=== PATIENT | male | born 1935 | race African-American/Black ===

== ENCOUNTER → 2016-06-29 | Outpatient (CLI) | payer MEDICARE, MEDICAID ==
[2016-06-29 13:16] LABS: ABSOLUTE EOSINOPHILS # (AUTO) 0.1 10^3/uL (0.0-0.6); ABSOLUTE LYMPHOCYTES (AUTO) 1.3 10^3/uL (0.5-4.7); ABSOLUTE MONOCYTES (AUTO) 0.6 10^3/uL (0.1-1.4); ABSOLUTE NEUT (AUTO) 4.5 10^3/uL (1.7-8.2); BASOPHILS % (AUTO) 0.6 % (0-2); EOSINOPHILS % (AUTO) 2.2 % (0-6); HEMATOCRIT 45.9 % (37.9-51.0); HEMOGLOBIN 14.7 g/dL (13.5-17.0); HGB HCT DIFFERENCE -1.8; LYMPHOCYTES % (AUTO) 19.7 % (13-45); MEAN CORPUSCULAR HEMOGLOBIN 32.1 pg (27.0-33.4); MEAN CORPUSCULAR HGB CONC 32.1 g/dL (32.0-36.0); MEAN CORPUSCULAR VOLUME 100 fl (80-97); MONOCYTES % (AUTO) 8.6 % (3-13); RED BLOOD COUNT 4.59 10^6/uL (4.35-5.55); RED CELL DISTRIBUTION WIDTH 13.7 % (11.5-14.0); SEGMENTED NEUTROPHILS % (AUTO) 68.9 % (42-78); WHITE BLOOD COUNT 6.5 10^3/uL (4.0-10.5)
[2016-06-29 13:36] LABS: ALANINE AMINOTRANSFERASE 36 U/L (21-72); ALBUMIN 4.4 g/dL (3.5-5.0); ALKALINE PHOSPHATASE 74 U/L (38-126); ANION GAP 13 (5-19); ASPARTATE AMINO TRANSFERASE 37 U/L (17-59); BILIRUBIN,TOTAL 1.4 mg/dL (0.2-1.3); BLOOD UREA NITROGEN 11 mg/dL (7-20); C-REACTIVE PROTEIN 5.6 mg/L (<10.0); CALCIUM 9.6 mg/dL (8.4-10.2); CARBON DIOXIDE 28 mmol/L (22-30); CHLORIDE 101 mmol/L (98-107); GLUCOSE 95 mg/dL (75-110); POTASSIUM 4.5 mmol/L (3.6-5.0); SODIUM 141.6 mmol/L (137-145); TOTAL PROTEIN 7.7 g/dL (6.3-8.2)
[2016-06-29 13:56] LABS: ERYTHROCYTE SEDIMENTATION RATE 12 mm/hr (0-20)
== END ==
LOC: WC 11:55
PROVIDERS: ATTEND Nurse Practitioner Family
DX: L97.222 Non-pressure chronic ulcer of left calf with fat layer exposed (principal)
CPT/HCPCS: 36415; 80053; 85025; 85652; 86140

== ENCOUNTER 2016-07-13 09:06 | Inpatient (IN) | payer MEDICARE, MEDICAID ==
[2016-07-13 09:56] LABS: ABSOLUTE EOSINOPHILS # (AUTO) 0.2 10^3/uL (0.0-0.6); ABSOLUTE LYMPHOCYTES (AUTO) 1.2 10^3/uL (0.5-4.7); ABSOLUTE MONOCYTES (AUTO) 0.4 10^3/uL (0.1-1.4); ABSOLUTE NEUT (AUTO) 4.2 10^3/uL (1.7-8.2); BASOPHILS % (AUTO) 0.6 % (0-2); EOSINOPHILS % (AUTO) 3.1 % (0-6); HEMATOCRIT 48.7 % (37.9-51.0); HEMOGLOBIN 16.4 g/dL (13.5-17.0); HGB HCT DIFFERENCE 0.5; LYMPHOCYTES % (AUTO) 19.5 % (13-45); MEAN CORPUSCULAR HEMOGLOBIN 33.1 pg (27.0-33.4); MEAN CORPUSCULAR HGB CONC 33.6 g/dL (32.0-36.0); MEAN CORPUSCULAR VOLUME 98 fl (80-97); MONOCYTES % (AUTO) 6.9 % (3-13); RED BLOOD COUNT 4.94 10^6/uL (4.35-5.55); RED CELL DISTRIBUTION WIDTH 13.7 % (11.5-14.0); SEGMENTED NEUTROPHILS % (AUTO) 69.9 % (42-78)
[2016-07-13 10:13] LABS: PROTHROMBIN TIME 13.9 SEC (11.4-15.4)
[2016-07-13 10:14] LABS: ANION GAP 14 (5-19); BLOOD UREA NITROGEN 13 mg/dL (7-20); CALCIUM 9.9 mg/dL (8.4-10.2); CARBON DIOXIDE 27 mmol/L (22-30); CHLORIDE 102 mmol/L (98-107); CREATININE RESULT 1.26 mg/dL (0.52-1.25); GLUCOSE 101 mg/dL (75-110); POTASSIUM 4.2 mmol/L (3.6-5.0); SODIUM 142.9 mmol/L (137-145)
[2016-07-13] MEDS ORDERED: HEPARIN SOD (PORCINE) 1,000 UNIT/ML 10 ML VIAL IV ONE (10:44)
[2016-07-13] MEDS ORDERED: HEPARIN SOD (PORCINE) 1,000 UNIT/ML 10 ML VIAL IV PRN (10:44)
--- NOTE | 2016-07-13 10:45 | ER Document Report ---
ED General - General Chief Complaint: Leg Pain Stated Complaint: RIGHT LEG PAIN TRAVEL OUTSIDE OF THE [place] IN LAST 30 DAYS: No - HPI Patient complains to provider of: right leg pain Notes: Patient coming in as outpatient for arterial studies due to an ulcer on the left leg. During the arterial studies redness no finding of a right-sided DVT was found patient was referred to the ER for further evaluation. Patient otherwise denies history of cancer PE DVT recent travel. Patient states he does have a history of intermittent atrial fibrillation is only on Plavix for anticoagulation. Denies history GI bleeds or bleeding from his rectum. Patient otherwise has no other complaints and is wondering when he can go back to the outpatient services for further testing - Related Data Allergies/Adverse Reactions: No Known Allergies Allergy (Verified 07/13/16 09:09) Home Medications: Current Home Medications Valsartan [Diovan 160 mg Tablet] 160 mg PO DAILY 07/13/16 [History] Past Medical History - Social History Smoking Status: Unknown if Ever Smoked Family History: None Patient has suicidal ideation: No Patient has homicidal ideation: No - Past Medical History Cardiac Medical History: Reports: Hx Hypertension - since 2004? Denies: Hx Atrial Fibrillation, Hx Congestive Heart Failure, Hx Coronary Artery Disease, Hx Heart Attack, Hx Hypercholesterolemia, Hx Peripheral Vascular Disease, Hx Pulmonary Embolism, Hx Heart Murmur Pulmonary Medical History: Reports: Hx Pneumonia - 2010 Denies: Hx Asthma, Hx Bronchitis, Hx COPD, Hx Respiratory Failure, Hx Sleep Apnea, Hx Tuberculosis Neurological Medical History: Denies: Hx Cerebrovascular Accident, Hx Seizures Renal/ Medical History: Denies: Hx Peritoneal Dialysis Malignancy Medical History: Denies Hx Lung Cancer Musculoskeltal Medical History: Reports Hx Arthritis - arms,rt ankle,hands Past Surgical History: Denies: Hx Pacemaker - Immunizations Hx Diphtheria, Pertussis, Tetanus Vaccination: No Hx Pneumococcal Vaccination: 06/13/10 Review of Systems - Review of Systems Constitutional: Other - DVT right leg EENT: No symptoms reported Cardiovascular: No symptoms reported Respiratory: No symptoms reported Gastrointestinal: No symptoms reported Genitourinary: No symptoms reported Male Genitourinary: No symptoms reported Musculoskeletal: No symptoms reported Skin: No symptoms reported Hematologic/Lymphatic: No symptoms reported Neurological/Psychological: No symptoms reported Physical Exam - Vital signs Vitals: Temp Pulse Resp BP Pulse Ox 98.8 F 97 14 119/78 100 07/13/16 09:09 07/13/16 09:09 07/13/16 09:09 07/13/16 09:09 07/13/16 09:09 Interpretation: Normal - General General appearance: Appears well, Alert - HEENT Head: Normocephalic, Atraumatic Eyes: Normal Pupils: PERRL - Respiratory Respiratory status: No respiratory distress Chest status: Nontender Breath sounds: Normal Chest palpation: Normal - Cardiovascular Rhythm: Regular Heart sounds: Normal auscultation Murmur: No - Abdominal Inspection: Normal Distension: No distension Bowel sounds: Normal Tenderness: Nontender Organomegaly: No organomegaly - Back Back: Normal, Nontender - Extremities General upper extremity: Normal inspection, Nontender, Normal color, Normal ROM , Normal temperature General lower extremity: Nontender, Normal color, Normal ROM, Normal temperature , Normal weight bearing. No: Normal inspection - Ulcer to the left leg no signs of blushing the signs of infection, David's sign - Neurological Neuro grossly intact: Yes Cognition: Normal Orientation: AAOx4 Juani Coma Scale Eye Opening: Spontaneous [place] Coma Scale Verbal: Oriented [place] Coma Scale Motor: Obeys Commands Hollywood Coma Scale Total: 15 Speech: Normal Motor strength normal: LUE, RUE, LLE, RLE Sensory: Normal - Psychological Associated symptoms: Normal affect, Normal mood - Skin Skin Temperature: Warm Skin Moisture: Dry Skin Color: Normal Course - Re-evaluation Re-evalutation: 07/13/16 14:55 Patient's lab work shows minimal elevation in his creatinine. Patient does have elevation in his PTT. More likely this is from Plavix. I did discuss with patient's PCP PCP recommend admission as a the patient is very noncompliant with medications and is concerned about possible bleeding risk. Patient was started on heparin for treatment of his DVT. - Vital Signs Vital signs: Temp Pulse Resp BP Pulse Ox 98.8 F 97 14 119/78 100 07/13/16 09:09 07/13/16 09:09 07/13/16 09:09 07/13/16 09:09 07/13/16 09:09 - Laboratory Result Diagrams: 07/13/16 09:35 07/13/16 09:35 Laboratory results interpreted by me: 07/13/16 07/13/16 07/13/16 09:35 09:35 09:35 MCV 98 H Plt Count 144 L APTT 39.0 H Creatinine 1.26 H Est GFR (Non-Af Amer) 55 L Critical Care Note - Critical Care Note Total time excluding time spent on procedures (mins): 35 Comments: Multiple evaluation patient with DVT managing heparin drip. Discharge - Discharge Clinical Impression: Elevated serum creatinine Right leg DVT Qualifiers: Affected thrombotic vein of extremity: popliteal Chronicity: unspecified Qualified Code(s): I82.431 - Acute embolism and thrombosis of right popliteal vein Leg ulcer, left Qualifiers: Non-pressure ulcer stage: unspecified non-pressure ulcer stage Qualified Code(s ): L97.929 - Non-pressure chronic ulcer of unspecified part of left lower leg with unspecified severity Condition: Good Disposition: ADMITTED OBSERVATION Admitting Provider: Kerry Unit Admitted: Telemetry
[2016-07-13] MEDS: HEPARIN SODIUM,PORCINE/D5W 250 ML IV PRN (11:36)
[2016-07-13] MEDS ORDERED: VALSARTAN 160 MG TABLET PO ONE (14:00)
--- NOTE | 2016-07-13 20:13 | PDOC H&P ---
History of Present Illness Admission Date/PCP: 07/13/16 13:09 MARCIAL CUBA, History of Present Illness: FABIENNE HURLEY is a 80 year old male, patient is well-known to me, he has history of chronic obstructive pulmonary disease, he has a non-healing ulcer on the right leg and he was to have diagnostic arterial Doppler done because of the suspicion for peripheral vascular disease. The arterial Doppler was done today and there was incidental finding of the vein thromboses in the right popliteal vein, and there was peripheral arterial disease in the left leg but not in the right leg. He has a history of atrial flutter that was ablated years ago, he was found to have episode of atrial fibrillation suggesting paroxysmal atrial fibrillation Past Medical History Cardiac Medical History: Reports: Hypertension - since 2004?, Peripheral Vascular Disease Pulmonary Medical History: Reports: Chronic Obstructive Pulmonary Disease (COPD) , Pneumonia - 2010 Musculoskeltal Medical History: Reports: Arthritis - arms,rt ankle,hands Social History Smoking Status: Never Smoker Frequency of Alcohol Use: None Hx Recreational Drug Use: No Drugs: None Hx Prescription Drug Abuse: No - Advance Directive Resuscitation Status: Full Code Family History Family History: None Parental Family History Reviewed: Yes Children Family History Reviewed: Yes Sibling(s) Family History Reviewed.: Yes Medication/Allergy Home Medications: Valsartan [Diovan 160 mg Tablet] 160 mg PO DAILY 07/13/16 Allergies/Adverse Reactions: No Known Allergies Allergy (Verified 07/13/16 09:09) Review of Systems Constitutional: ABSENT: chills, fever(s), headache(s), weight gain, weight loss Cardiovascular: ABSENT: as per HPI, chest pain, dyspnea on exertion, edema, orthropnea, palpitations, other Respiratory: ABSENT: cough, hemoptysis Gastrointestinal: ABSENT: abdominal pain, constipation, diarrhea, hematemesis, hematochezia, nausea, vomiting Genitourinary: ABSENT: dysuria, hematuria Musculoskeletal: ABSENT: joint swelling Integumentary: ABSENT: rash, wounds Neurological: ABSENT: abnormal gait, abnormal speech, confusion, dizziness, focal weakness, syncope Psychiatric: ABSENT: anxiety, depression, homidical ideation, suicidal ideation Endocrine: ABSENT: cold intolerance, heat intolerance, menstrual abnormalities, polydipsia, polyuria Hematologic/Lymphatic: ABSENT: easy bleeding, easy bruising, lymphadenopathy Physical Exam Vital Signs: Temp Pulse Resp BP Pulse Ox 97.8 F 85 16 120/72 100 07/13/16 16:43 07/13/16 16:43 07/13/16 16:43 07/13/16 16:43 07/13/16 16:43 Intake & Output 07/12/16 07/13/16 07/14/16 06:59 06:59 06:59 Intake Total 108 Balance 108 Weight 90.718 kg General appearance: PRESENT: no acute distress Eye exam: PRESENT: PERRLA Neck exam: PRESENT: full ROM Cardiovascular exam: PRESENT: RRR, +S1, +S2 Vascular exam: PRESENT: normal capillary refill GI/Abdominal exam: PRESENT: normal bowel sounds, soft Rectal exam: PRESENT: deferred Extremities exam: PRESENT: other - There is chronic ulcer on the left leg Neurological exam: PRESENT: alert, CN II-XII grossly intact Psychiatric exam: PRESENT: appropriate affect, normal mood Skin exam: PRESENT: dry, intact, warm Assessment & Plan - Diagnosis (1) Deep venous thrombosis of right popliteal vein Qualifiers: Chronicity: acute Qualified Code(s): I82.431 - Acute embolism and thrombosis of right popliteal vein Is this a current diagnosis for this admission?: YesPlan: He has the vein thromboses of the right popliteal vein, he be started on IV heparin (2) Paroxysmal atrial fibrillation Is this a current diagnosis for this admission?: YesPlan: The ventricular rate is variable, he will be treated with by mouth Cardizem (3) Chronic obstructive lung disease Qualifiers: COPD type: chronic bronchitis Chronic bronchitis type: unspecified Qualified Code(s): J42 - Unspecified chronic bronchitis Is this a current diagnosis for this admission?: Yes (4) Chronic ulcer of leg Qualifiers: Laterality: left Non-pressure ulcer stage: unspecified non-pressure ulcer stage Qualified Code(s): L97.929 - Non-pressure chronic ulcer of unspecified part of left lower leg with unspecified severity Is this a current diagnosis for this admission?: Yes
[2016-07-13] MEDS: DILTIAZEM HCL 120 MG CAP.SR.24H PO SCH (21:54)
[2016-07-14 04:44] LABS: ABSOLUTE BASOPHILS # (AUTO) 0.1 10^3/uL (0.0-0.2); ABSOLUTE EOSINOPHILS # (AUTO) 0.4 10^3/uL (0.0-0.6); ABSOLUTE LYMPHOCYTES (AUTO) 1.7 10^3/uL (0.5-4.7); ABSOLUTE MONOCYTES (AUTO) 0.4 10^3/uL (0.1-1.4); ABSOLUTE NEUT (AUTO) 3.2 10^3/uL (1.7-8.2); BASOPHILS % (AUTO) 1.5 % (0-2); EOSINOPHILS % (AUTO) 6.2 % (0-6); HEMATOCRIT 45.3 % (37.9-51.0); HGB HCT DIFFERENCE -0.3; LYMPHOCYTES % (AUTO) 30.6 % (13-45); MEAN CORPUSCULAR HEMOGLOBIN 32.7 pg (27.0-33.4); MEAN CORPUSCULAR VOLUME 99 fl (80-97); MONOCYTES % (AUTO) 6.2 % (3-13); RED BLOOD COUNT 4.58 10^6/uL (4.35-5.55); RED CELL DISTRIBUTION WIDTH 13.6 % (11.5-14.0); SEGMENTED NEUTROPHILS % (AUTO) 55.5 % (42-78); WHITE BLOOD COUNT 5.7 10^3/uL (4.0-10.5)
[2016-07-14 05:15] LABS: ANION GAP 12 (5-19); BLOOD UREA NITROGEN 12 mg/dL (7-20); CALCIUM 9.5 mg/dL (8.4-10.2); CARBON DIOXIDE 28 mmol/L (22-30); CHLORIDE 101 mmol/L (98-107); CREATININE RESULT 1.33 mg/dL (0.52-1.25); GLUCOSE 100 mg/dL (75-110); POTASSIUM 4.3 mmol/L (3.6-5.0); SODIUM 141.4 mmol/L (137-145)
[2016-07-14] MEDS: HEPARIN SODIUM,PORCINE/D5W 250 ML IV PRN (07:34)
--- NOTE | 2016-07-14 09:23 | EKG REPORT ---
SEVERITY:- ABNORMAL ECG - ATRIAL FIBRILLATION BORDERLINE LEFT AXIS DEVIATION : Confirmed by: Clement Chang 14-Jul-2016 09:22:50
[2016-07-14 09:27] LABS: APPEARANCE,URINE CLEAR; BILIRUBIN,URINE NEGATIVE (NEGATIVE); GLUCOSE, URINE NEGATIVE (NEGATIVE); KETONES,URINE NEGATIVE (NEGATIVE); LEUKOCYTE ESTERASE,URINE NEGATIVE (NEGATIVE); NITRITE,URINE NEGATIVE (NEGATIVE); PROTEIN,URINE NEGATIVE (NEGATIVE); UROBILINOGEN,URINE NEGATIVE mg/dL (<2.0)
[2016-07-14] MEDS: VALSARTAN 160 MG TABLET PO SCH (09:35)
[2016-07-14] MEDS: DILTIAZEM HCL 120 MG CAP.SR.24H PO SCH (22:09)
[2016-07-15 07:16] LABS: ABSOLUTE EOSINOPHILS # (AUTO) 0.4 10^3/uL (0.0-0.6); ABSOLUTE LYMPHOCYTES (AUTO) 1.5 10^3/uL (0.5-4.7); ABSOLUTE MONOCYTES (AUTO) 0.4 10^3/uL (0.1-1.4); ABSOLUTE NEUT (AUTO) 3.1 10^3/uL (1.7-8.2); BASOPHILS % (AUTO) 0.7 % (0-2); EOSINOPHILS % (AUTO) 6.7 % (0-6); HEMATOCRIT 43.4 % (37.9-51.0); HEMOGLOBIN 14.6 g/dL (13.5-17.0); HGB HCT DIFFERENCE 0.4; LYMPHOCYTES % (AUTO) 27.6 % (13-45); MEAN CORPUSCULAR HGB CONC 33.6 g/dL (32.0-36.0); MEAN CORPUSCULAR VOLUME 98 fl (80-97); MONOCYTES % (AUTO) 7.5 % (3-13); RED BLOOD COUNT 4.42 10^6/uL (4.35-5.55); RED CELL DISTRIBUTION WIDTH 13.4 % (11.5-14.0); SEGMENTED NEUTROPHILS % (AUTO) 57.5 % (42-78); WHITE BLOOD COUNT 5.4 10^3/uL (4.0-10.5)
[2016-07-15 07:37] LABS: ANION GAP 8 (5-19); BLOOD UREA NITROGEN 12 mg/dL (7-20); CALCIUM 9.6 mg/dL (8.4-10.2); CARBON DIOXIDE 30 mmol/L (22-30); CHLORIDE 102 mmol/L (98-107); CREATININE RESULT 1.21 mg/dL (0.52-1.25); GLUCOSE 96 mg/dL (75-110); POTASSIUM 4.2 mmol/L (3.6-5.0); SODIUM 139.9 mmol/L (137-145)
[2016-07-15] MEDS: VALSARTAN 160 MG TABLET PO SCH (12:34)
--- NOTE | 2016-07-15 18:27 | PDOC PROGRESS REPORT ---
Subjective Progress Note for:: 07/14/16 Subjective:: Patient was seen by the bedside, he has no new complaints. Physical Exam Vital Signs: Temp Pulse Resp BP Pulse Ox 97.7 F 87 17 129/91 H 92 07/14/16 15:45 07/14/16 15:45 07/14/16 15:45 07/14/16 15:45 07/14/16 15:45 Intake & Output 07/13/16 07/14/16 07/15/16 06:59 06:59 06:59 Intake Total 997 800 Output Total 950 Balance 997 -150 Weight 91 kg General appearance: PRESENT: no acute distress Eye exam: PRESENT: PERRLA Respiratory exam: PRESENT: clear to auscultation poonam Cardiovascular exam: PRESENT: +S1, +S2 GI/Abdominal exam: PRESENT: soft Neurological exam: PRESENT: alert Results Laboratory Results: 07/14/16 04:17 07/14/16 04:17 07/14/16 07/14/16 07/14/16 04:17 04:17 09:07 WBC 5.7 RBC 4.58 Hgb 15.0 Hct 45.3 MCV 99 H MCH 32.7 MCHC 33.0 RDW 13.6 Plt Count 134 L Seg Neutrophils % 55.5 Lymphocytes % 30.6 Monocytes % 6.2 Eosinophils % 6.2 H Basophils % 1.5 Absolute Neutrophils 3.2 Absolute Lymphocytes 1.7 Absolute Monocytes 0.4 Absolute Eosinophils 0.4 Absolute Basophils 0.1 Sodium 141.4 Potassium 4.3 Chloride 101 Carbon Dioxide 28 Anion Gap 12 BUN 12 Creatinine 1.33 H Est GFR ( Amer) > 60 Est GFR (Non-Af Amer) 52 L Glucose 100 Calcium 9.5 Urine Color YELLOW Urine Appearance CLEAR Urine pH 6.0 Ur Specific [place] 1.010 Urine Protein NEGATIVE Urine Glucose (UA) NEGATIVE Urine Ketones NEGATIVE Urine Blood NEGATIVE Urine Nitrite NEGATIVE Ur Leukocyte Esterase NEGATIVE Urine RBC (Auto) 0 Assessment & Plan - Diagnosis (1) Deep venous thrombosis of right popliteal vein Qualifiers: Chronicity: acute Qualified Code(s): I82.431 - Acute embolism and thrombosis of right popliteal vein Is this a current diagnosis for this admission?: YesPlan: Continue IV heparin (2) Paroxysmal atrial fibrillation Is this a current diagnosis for this admission?: Yes (3) Chronic obstructive lung disease Qualifiers: COPD type: chronic bronchitis Chronic bronchitis type: unspecified Qualified Code(s): J42 - Unspecified chronic bronchitis Is this a current diagnosis for this admission?: Yes (4) Chronic ulcer of leg Qualifiers: Laterality: left Non-pressure ulcer stage: unspecified non-pressure ulcer stage Qualified Code(s): L97.929 - Non-pressure chronic ulcer of unspecified part of left lower leg with unspecified severity Is this a current diagnosis for this admission?: Yes
[2016-07-15 19:47] VITALS: BP 112/70
--- NOTE | 2016-07-16 19:38 | PDOC DISCHARGE SUMMARY ---
General - Admit/Disc Date/PCP Admission Date/Primary Care Provider: 07/13/16 13:09 MARCIAL CUBA, Discharge Date: 07/15/16 - Discharge Diagnosis (1) Deep venous thrombosis of right popliteal vein Is this a current diagnosis for this admission?: Yes (2) Paroxysmal atrial fibrillation Is this a current diagnosis for this admission?: Yes (3) Chronic obstructive lung disease Is this a current diagnosis for this admission?: Yes (4) Chronic ulcer of leg Is this a current diagnosis for this admission?: Yes - Additional Information Resuscitation Status: Full Code Home Medications: Apixaban [Eliquis 5 mg Tablet] 5 mg PO BID #60 tablet 07/15/16 Diltiazem HCl [Cardizem Cd 120 mg Capsule] 120 mg PO QHS #90 cap.sr.24h Valsartan [Diovan 160 mg Tablet] 160 mg PO DAILY #90 07/15/16 History of Present Illness History of Present Illness: FABIENNE HURLEY is a 80 year old male, patient is well-known to me, he has history of chronic obstructive pulmonary disease, he has a non-healing ulcer on the right leg and he was to have diagnostic arterial Doppler done because of the suspicion for peripheral vascular disease. The arterial Doppler was done today and there was incidental finding of the vein thromboses in the right popliteal vein, and there was peripheral arterial disease in the left leg but not in the right leg. He has a history of atrial flutter that was ablated years ago, he was found to have episode of atrial fibrillation suggesting paroxysmal atrial fibrillation Hospital Course Hospital Course: Patient was admitted because of the vein thromboses of the right popliteal vein , he was treated with IV heparin, he also had episode of paroxysmal atrial fibrillation with variable ventricular rate. He was treated with by mouth Cardizem. Patient said he wants to go home today, the IV therapy. Discontinue and transition to by mouth eliquis Physical Exam Vital Signs: Temp Pulse Resp BP Pulse Ox 98.0 F 99 16 103/66 100 07/15/16 15:11 07/15/16 15:11 07/15/16 15:11 07/15/16 15:11 07/15/16 15:11 Intake & Output 07/14/16 07/15/16 07/16/16 06:59 06:59 06:59 Intake Total 997 1805 600 Output Total 1600 Balance 997 205 600 Weight 91 kg 91 kg General appearance: PRESENT: no acute distress Eye exam: PRESENT: PERRLA Respiratory exam: PRESENT: clear to auscultation poonam Cardiovascular exam: PRESENT: +S1, +S2 GI/Abdominal exam: PRESENT: soft Neurological exam: PRESENT: alert, CN II-XII grossly intact Results Laboratory Results: 07/15/16 06:28 07/15/16 06:28 07/14/16 07/15/16 07/15/16 21:19 06:28 06:28 WBC 5.4 RBC 4.42 Hgb 14.6 Hct 43.4 MCV 98 H MCH 33.0 MCHC 33.6 RDW 13.4 Plt Count 136 L Seg Neutrophils % 57.5 Lymphocytes % 27.6 Monocytes % 7.5 Eosinophils % 6.7 H Basophils % 0.7 Absolute Neutrophils 3.1 Absolute Lymphocytes 1.5 Absolute Monocytes 0.4 Absolute Eosinophils 0.4 Absolute Basophils 0.0 Sodium 139.9 Potassium 4.2 Chloride 102 Carbon Dioxide 30 Anion Gap 8 BUN 12 Creatinine 1.21 Est GFR ( Amer) > 60 Est GFR (Non-Af Amer) 58 L Glucose 96 Calcium 9.6 Stool Occult Blood NEGATIVE
== END 2016-07-15 20:10 | disposition home or self-care (01) | DRG 300 ==
LOC: ER 09:06 → EH 11:15 → UNDOADMIN 11:15 → EH 13:09 → 4W 15:51 → 4S 07-14 16:50
PROVIDERS: ADMIT Internal Medicine; ATTEND Internal Medicine
DX: I82.431 Acute embolism and thrombosis of right popliteal vein (principal); L97.929 Non-pressure chronic ulcer of unspecified part of left lower leg with unspecified severity; I48.0 Paroxysmal atrial fibrillation; J44.9 Chronic obstructive pulmonary disease, unspecified; I10 Essential (primary) hypertension; M19.90 Unspecified osteoarthritis, unspecified site
CPT/HCPCS: 36415; 80048; 81001; 82272; 85025; 85610; 85730; 93005; 93010; 93925; 96365; 96366; 99291; J1644

== ENCOUNTER → 2016-07-13 | Outpatient (CLI) | payer MEDICARE, MEDICAID ==
--- NOTE | 2016-07-13 10:27 | XCELERA REPORT ---
[address] [address] Lower Extremity Arterial Evaluation Name: FABIENNE HURLEY Age: 80 yrs Gender: Male : 1935 Patient Status: Outpatient Patient Location: Study Date: 07/13/2016 08:01 AM Procedure: A color flow and duplex scan of the lower extremity arteries was performed bilaterally with velocity and waveform anaylsis. Reason For Study: ULCER Ordering Physician: DEBBIE LANZA Performed By: Shahla Thomas Measurements and Calculations Right Left [employer] PSV 44.9 58.9 cm/sec Prox PFA PSV -41.5 -63.3 cm/sec Prox SFA PSV 48.8 58.0 cm/sec Mid SFA PSV -42.1 -44.9 cm/sec Dist SFA PSV -33.0 -47.7 cm/sec Prox Pop A PSV 34.2 32.4 cm/sec Dist JAX PSV 71.6 90.8 cm/sec Dist [employer] PSV 55.6 59.7 cm/sec Leonel Pedis PSV 53.8 48.3 cm/sec Right Side Arterial Evaluation Abnormal filling, no flow and echogenic luminal content in the Popliteal vein. Normal velocity, waveform and triphasic flow are present, from the Common Femoral artery down to the infrageniculate vessels. Biphasic in the Deep femoral artery.. The ankle-brachial index was not done, due to finding veinous clot.. 0-19 % stenosis is noted at the Deep Femoral artery. Left Side Arterial Evaluation Normal velocity, waveform and triphasic flow are present, from the Common Femoral artery to the Popliteal. Evaluation of the infrageniculate vessels incomplete, due to bandaging, Biphasic distally.. The ankle-brachial index was not done. 0-19 % stenosis is noted at the infrageniculate vessels. Critical Findings Discussed with Dr Peace at about 0930, the patient will go to the ER for treatment, planning. Interpretation Summary No hemodynamically significant lesions in the right lower extremity only, on duplex imaging, at rest. Mild hemodynamically significant lesions in the left lower extremity only, on duplex imaging, at rest. Critical incidental finding of DVT in the right Popliteal vein. : DEBBIE LANZA > Froylan Good
== END ==
LOC: SP 07:56
PROVIDERS: ATTEND Nurse Practitioner Family
DX: L97.222 Non-pressure chronic ulcer of left calf with fat layer exposed (principal); I87.2 Venous insufficiency (chronic) (peripheral)
CPT/HCPCS: 93925

== ENCOUNTER → 2017-04-05 | Outpatient (CLI) | payer MEDICARE, MEDICAID ==
[2017-04-05 14:41] LABS: ABSOLUTE EOSINOPHILS # (AUTO) 0.3 10^3/uL (0.0-0.6); ABSOLUTE LYMPHOCYTES (AUTO) 1.2 10^3/uL (0.5-4.7); ABSOLUTE MONOCYTES (AUTO) 0.6 10^3/uL (0.1-1.4); ABSOLUTE NEUT (AUTO) 3.8 10^3/uL (1.7-8.2); BASOPHILS % (AUTO) 0.8 % (0-2); EOSINOPHILS % (AUTO) 4.6 % (0-6); HEMOGLOBIN 14.2 g/dL (13.5-17.0); HGB HCT DIFFERENCE 0.6; LYMPHOCYTES % (AUTO) 20.7 % (13-45); MEAN CORPUSCULAR HEMOGLOBIN 32.5 pg (27.0-33.4); MEAN CORPUSCULAR HGB CONC 33.7 g/dL (32.0-36.0); MEAN CORPUSCULAR VOLUME 97 fl (80-97); MONOCYTES % (AUTO) 9.4 % (3-13); RED BLOOD COUNT 4.36 10^6/uL (4.35-5.55); RED CELL DISTRIBUTION WIDTH 14.7 % (11.5-14.0); SEGMENTED NEUTROPHILS % (AUTO) 64.5 % (42-78); WHITE BLOOD COUNT 5.8 10^3/uL (4.0-10.5)
[2017-04-05 15:09] LABS: ALANINE AMINOTRANSFERASE 35 U/L (21-72); ALBUMIN 4.5 g/dL (3.5-5.0); ALKALINE PHOSPHATASE 84 U/L (38-126); ANION GAP 12 (5-19); ASPARTATE AMINO TRANSFERASE 26 U/L (17-59); BILIRUBIN,DIRECT 0.4 mg/dL (0.0-0.4); BILIRUBIN,TOTAL 0.9 mg/dL (0.2-1.3); BLOOD UREA NITROGEN 15 mg/dL (7-20); C-REACTIVE PROTEIN 9.3 mg/L (<10.0); CARBON DIOXIDE 30 mmol/L (22-30); CHLORIDE 98 mmol/L (98-107); CREATININE RESULT 1.36 mg/dL (0.52-1.25); GLUCOSE 107 mg/dL (75-110); POTASSIUM 4.7 mmol/L (3.6-5.0); SODIUM 139.9 mmol/L (137-145); TOTAL PROTEIN 8.1 g/dL (6.3-8.2)
[2017-04-05 15:24] LABS: ERYTHROCYTE SEDIMENTATION RATE 23 mm/hr (0-20)
--- NOTE | 2017-04-05 16:13 | RADIOLOGY REPORT (SQ) ---
EXAM DESCRIPTION: TIBIA FIBULA LEFT COMPLETED DATE/TIME: 04/05/2017 2:16 pm REASON FOR STUDY: NON-PRESSURE CHRONIC ULCER OF LEFT CALF W FAT LAYER EXPOSED L97.222 NON-PRESSURE CHRONIC ULCER OF LEFT CALF W FAT LAYER COMPARISON: Left tibia and fibula two views 06/29/2016, 05/25/2011 NUMBER OF VIEWS: Two views. TECHNIQUE: Two radiographic images acquired of the left tibia and fibula to include the knee and ank le in at least one projection. LIMITATIONS: None. FINDINGS: Overall normal bone density. An old left distal tibial diaphysis fracture is present with surrounding bony bridging callus. An no nunited butterfly fracture left distal 3rd fibular diaphysis present. There are thrombosed calcified varicosities in the medial left calf. About 10 cm proximal to the ankle mortise, there is a medial soft tissue ulcer about 1.5 cm in diamet er. There is no underlying aggressive bony resorption or periosteal new bone worrisome for active os teomyelitis on the current films. IMPRESSION: Soft tissue ulcer, medial distal left calf without underlying bony changes by plain film to suggest osteomyelitis. TECHNICAL DOCUMENTATION: JOB ID: [id number]- All Rights Reserved
== END ==
LOC: WC 13:33
PROVIDERS: ATTEND Surgery
DX: L97.222 Non-pressure chronic ulcer of left calf with fat layer exposed (principal)
CPT/HCPCS: 36415; 80053; 85025; 85652; 86140

== ENCOUNTER 2017-06-18 11:12 | Inpatient (IN) | payer MEDICARE, MEDICAID ==
--- NOTE | 2017-06-18 11:43 | EKG REPORT ---
SEVERITY:- ABNORMAL ECG - ATRIAL FIBRILLATION, V-RATE 76-165 VENTRICULAR PREMATURE COMPLEX LEFT AXIS DEVIATION : Confirmed by: Clement Chang 18-Jun-2017 11:42:34
[2017-06-18] MEDS ORDERED: DILTIAZEM HCL INJ 25 MG/5 ML VIAL IV ONE (11:45)
[2017-06-18] MEDS ORDERED: DILTIAZEM HCL/D5W 125 MG/125 ML RTUINJ IV PRN (11:45)
[2017-06-18 11:56] LABS: ABSOLUTE EOSINOPHILS # (AUTO) 0.2 10^3/uL (0.0-0.6); ABSOLUTE LYMPHOCYTES (AUTO) 1.1 10^3/uL (0.5-4.7); ABSOLUTE MONOCYTES (AUTO) 0.7 10^3/uL (0.1-1.4); BASOPHILS % (AUTO) 0.6 % (0-2); EOSINOPHILS % (AUTO) 2.9 % (0-6); HEMATOCRIT 41.8 % (37.9-51.0); HEMOGLOBIN 14.2 g/dL (13.5-17.0); LYMPHOCYTES % (AUTO) 15.9 % (13-45); MEAN CORPUSCULAR HEMOGLOBIN 33.2 pg (27.0-33.4); MEAN CORPUSCULAR HGB CONC 33.9 g/dL (32.0-36.0); MEAN CORPUSCULAR VOLUME 98 fl (80-97); MONOCYTES % (AUTO) 9.6 % (3-13); PLATELET COUNT 166 10^3/uL (150-450); RED BLOOD COUNT 4.28 10^6/uL (4.35-5.55); RED CELL DISTRIBUTION WIDTH 14.1 % (11.5-14.0); TOTAL CELLS COUNTED % (AUTO) 100 %
[2017-06-18 12:06] LABS: INTERNATIONAL RATION (INR) 1.03; PROTHROMBIN TIME 14.2 SEC (11.4-15.4)
--- NOTE | 2017-06-18 12:06 | RADIOLOGY REPORT (SQ) ---
EXAM DESCRIPTION: CHEST SINGLE VIEW COMPLETED DATE/TIME: 06/18/2017 11:58 am REASON FOR STUDY: cough productive COMPARISON: 03/16/2013 EXAM PARAMETERS: NUMBER OF VIEWS: One view. TECHNIQUE: Single frontal radiographic view of the chest acquired. RADIATION DOSE: NA LIMITATIONS: None. FINDINGS: LUNGS AND PLEURA: Stable bibasilar scarring without new opacities, masses or pneumothorax. No pleural effusion. MEDIASTINUM AND HILAR STRUCTURES: No masses. Contour normal. HEART AND VASCULAR STRUCTURES: Heart stable in size. Normal vasculature. BONES: No acute findings. HARDWARE: None in the chest. OTHER: No other significant finding. IMPRESSION: NO ACUTE RADIOGRAPHIC FINDING IN THE CHEST. NO SIGNIFICANT CHANGE FROM PRIOR STUDY. TECHNICAL DOCUMENTATION: JOB ID: [id number] [employer]- All Rights Reserved
[2017-06-18] MEDS ORDERED: HYDROCODONE BIT/HOMATROPINE 5-1.5 MG TABLET PO ONE (12:13)
[2017-06-18 12:16] LABS: VENOUS BLOOD BASE EXCESS 2.3 mmol/L; VENOUS BLOOD HCO3 29.2 mmol/L (20-32); VENOUS BLOOD PCO2 54.9 mmHg (35-63); VENOUS BLOOD PH 7.34 (7.30-7.42)
[2017-06-18 12:16] LABS: ALANINE AMINOTRANSFERASE 22 U/L (21-72); ALBUMIN 4.6 g/dL (3.5-5.0); ALKALINE PHOSPHATASE 80 U/L (38-126); ANION GAP 12 (5-19); ASPARTATE AMINO TRANSFERASE 35 U/L (17-59); BILIRUBIN,DIRECT 0.3 mg/dL (0.0-0.4); BILIRUBIN,TOTAL 0.5 mg/dL (0.2-1.3); BLOOD UREA NITROGEN 17 mg/dL (7-20); CALCIUM 9.7 mg/dL (8.4-10.2); CARBON DIOXIDE 29 mmol/L (22-30); CHLORIDE 95 mmol/L (98-107); CREATINE KINASE 414 U/L (55-170); GLUCOSE 152 mg/dL (75-110); POTASSIUM 4.2 mmol/L (3.6-5.0); SODIUM 136.2 mmol/L (137-145); TOTAL PROTEIN 8.3 g/dL (6.3-8.2)
--- NOTE | 2017-06-18 12:16 | ER Document Report ---
ED General - General Stated Complaint: ABDOMINAL PAIN Time Seen by Provider: 06/18/17 11:19 Mode of Arrival: Ambulatory Information source: Patient Notes: 81-year-old male history of A. fib presents with complaints of a cough nonproductive causing chest wall and abdominal pain. Denies have been ongoing for 2 weeks, patient noted to be in A. fib. Patient brought in by EMS given 125 mg IV Solu-Medrol and 1 DuoNeb for wheezing TRAVEL OUTSIDE OF THE [place] IN LAST 30 DAYS: No - HPI Onset: Other Onset/Duration: Persistent Quality of pain: Achy Severity: Mild Pain Level: 1 Associated symptoms: Body/muscle aches, Nonproductive cough, Other Exacerbated by: Coughing Relieved by: Denies Similar symptoms previously: Yes Recently seen / treated by doctor: No - Related Data Allergies/Adverse Reactions: No Known Allergies Allergy (Verified 07/13/16 09:09) Home Medications: Current Home Medications Furosemide [Lasix 40 mg Tablet] 40 mg PO QAM 06/18/17 [History] Tramadol HCl [Ultram 50 mg Tablet] 50 mg PO Q6HP PRN 06/18/17 [History] Valsartan [Diovan 160 mg Tablet] 160 mg PO DAILY 06/18/17 [History] Past Medical History - Social History Smoking Status: Never Smoker Cigarette use (# per day): No Chew tobacco use (# tins/day): No Smoking Education Provided: No Family History: None - Past Medical History Cardiac Medical History: Reports: Hx Hypertension - since 2004?, Hx Peripheral Vascular Disease Denies: Hx Atrial Fibrillation, Hx Congestive Heart Failure, Hx Coronary Artery Disease, Hx Heart Attack, Hx Hypercholesterolemia, Hx Pulmonary Embolism , Hx Heart Murmur Pulmonary Medical History: Reports: Hx COPD, Hx Pneumonia - 2010 Denies: Hx Asthma, Hx Bronchitis, Hx Respiratory Failure, Hx Sleep Apnea, Hx Tuberculosis Neurological Medical History: Denies: Hx Cerebrovascular Accident, Hx Seizures Renal/ Medical History: Denies: Hx Peritoneal Dialysis Malignancy Medical History: Denies Hx Lung Cancer Musculoskeltal Medical History: Reports Hx Arthritis - arms,rt ankle,hands Past Surgical History: Denies: Hx Pacemaker - Immunizations Hx Diphtheria, Pertussis, Tetanus Vaccination: No Hx Pneumococcal Vaccination: 06/13/10 Review of Systems - Review of Systems Notes: REVIEW OF SYSTEMS: CONSTITUTIONAL : Denies fever, chills, or sweats. Denies recent illness. EENT: Denies eye, ear, throat, or mouth pain or symptoms. Denies nasal or sinus congestion or discharge. Denies throat, tongue, or mouth swelling or difficulty swallowing. CARDIOVASCULAR: Denies chest pain. Denies palpitations or racing or irregular heart beat. Denies ankle edema. RESPIRATORY: Admits to cough GASTROINTESTINAL: Denies abdominal pain or distention. Denies nausea, vomiting , or diarrhea. Denies blood in vomitus, stools, or per rectum. Denies black, tarry stools. Denies constipation. GENITOURINARY: Denies difficulty urinating, painful urination, burning, frequency, blood in urine, or discharge. MUSCULOSKELETAL admits to chest wall abdominal wall tenderness when coughing SKIN: Denies rash, lesions or sores. HEMATOLOGIC : Denies easy bruising or bleeding. LYMPHATIC: Denies swollen, enlarged glands. NEUROLOGICAL: Denies confusion or altered mental status. Denies passing out or loss of consciousness. Denies dizziness or lightheadedness. Denies headache. Denies weakness or paralysis or loss of use of either side. Denies problems with gait or speech. Denies sensory loss, numbness, or tingling. Denies seizures. PSYCHIATRIC: Denies anxiety or stress. Denies depression, suicidal ideation, or homicidal ideation. ALL OTHER SYSTEMS REVIEWED AND NEGATIVE. PHYSICAL EXAMINATION: GENERAL: Well-appearing, well-nourished and in no acute distress. HEAD: Atraumatic, normocephalic. EYES: Pupils equal round and reactive to light, extraocular movements intact, conjunctiva are normal. ENT: Nares patent, oropharynx clear without exudates. Moist mucous membranes. NECK: Normal range of motion, supple without lymphadenopathy LUNGS: Breath sounds clear to auscultation bilaterally and equal. No wheezes rales or rhonchi. HEART: A. fib RVR ABDOMEN: Soft, nontender, nondistended abdomen. No guarding, no rebound. No masses appreciated. No abdominal tenderness with palpation but states it hurts when he coughs Female : deferred Musculoskeletal: Normal range of motion, no pitting or edema. No cyanosis. NEUROLOGICAL: Cranial nerves grossly intact. Normal speech, normal gait. Normal sensory, motor exams PSYCH: Normal mood, normal affect. SKIN: Warm, Dry, normal turgor, no rashes or lesions noted. Dictation was performed using [employer] voice recognition software Physical Exam - Vital signs Vitals: Temp Pulse Resp BP Pulse Ox 98.8 F 135 H 22 H 117/88 H 100 06/18/17 11:12 06/18/17 11:12 06/18/17 11:12 06/18/17 11:12 06/18/17 11:12 Course - Re-evaluation Re-evalutation: 06/18/17 12:16 Chest x-ray pending, more concerning is the patient's in A. fib RVR Cardizem bolus and drip has been started 06/18/17 16:16 After Cardizem had been started patient's heart rate improved to 70 bpm. Patient does have pain from coughing his lactate is noted to be elevated I do not have an obvious source of infection but I will cover the patient with Rocephin IV fluids Patient will be kept on Cardizem drip - Vital Signs Vital signs: Temp Pulse Resp BP Pulse Ox 98 F 135 H 15 107/67 97 06/18/17 15:46 06/18/17 11:12 06/18/17 15:31 06/18/17 15:16 06/18/17 15:31 - Laboratory Result Diagrams: 06/18/17 11:40 06/18/17 11:40 Laboratory results interpreted by me: 06/18/17 06/18/17 06/18/17 11:40 11:40 11:40 RBC 4.28 L MCV 98 H RDW 14.1 H Sodium 136.2 L Chloride 95 L Creatinine 1.64 H Est GFR ( Amer) 49 L Est GFR (Non-Af Amer) 41 L Glucose 152 H Lactic Acid 2.9 H Creatine Kinase 414 H Total Protein 8.3 H - Diagnostic Test Radiology reviewed: Reports reviewed - EKG Interpretation by Me EKG shows normal: Sinus rhythm, Intervals, QRS Complexes Rate: Tachycardia Rhythm: A.Fib Critical Care Note - Critical Care Note Total time excluding time spent on procedures (mins): 34 Comments: 34 minutes of critical care time spent in direct contact evaluating and reevaluating the patient, treating symptoms, reviewing labs and studies and speaking with family and consultants excluding any procedures Discharge - Discharge Clinical Impression: Atrial fibrillation with RVR, Cough, Elevated lactic acid level Condition: Stable Disposition: ADMITTED INPATIENT Admitting Provider: [facility] Admitted: [facility]
[2017-06-18] MEDS ORDERED: NORMAL SALINE 1000 ML 1,000 ML IV PRN ×3 (12:21→20:48)
[2017-06-18] MEDS ORDERED: NORMAL SALINE 1000 ML 1,000 ML IV ONE (12:21)
[2017-06-18] MEDS ORDERED: CEFTRIAXONE 1 GM/D5W RTU 1 GM/50 ML RTUPB IV ONE (12:27)
[2017-06-18 12:32] LABS: TROPONIN I < 0.012 ng/mL
--- NOTE | 2017-06-18 14:15 | RADIOLOGY REPORT (SQ) ---
EXAM DESCRIPTION: CT CHEST WITHOUT COMPLETED DATE/TIME: 06/18/2017 2:06 pm REASON FOR STUDY: copd/cogh COMPARISON: 05/25/2011 TECHNIQUE: CT scan performed of the chest without intravenous contrast. Images reviewed with lung, soft tissue and bone windows. Reconstructed coronal and sagittal MPR images reviewed. All images st ored on PACS. All CT scanners at this facility use dose modulation, iterative reconstruction, and/or weight based d osing when appropriate to reduce radiation dose to as low as reasonably achievable (ALARA). [facility]: Dose Right [facility]: CareDose [facility]: Dose Right [facility]: Teradose 4D [facility]: Smart XL Video RADIATION DOSE: CT Rad equipment meets quality standard of care and radiation dose reduction techniq ues were employed. CTDIvol: 14.4 mGy. DLP: 627 mGy-cm. mGy. LIMITATIONS: No technical limitations. FINDINGS: LUNGS AND PLEURA: Stable areas of subsegmental atelectasis/ scarring involving the right m iddle lobe, lingula, and bilateral lower lobes. No masses, consolidation, pneumothorax. No pleural effusions, calcifications. HILAR AND MEDIASTINAL STRUCTURES: No identified masses or abnormal nodes. No obvious aneurysm. HEART AND VASCULAR STRUCTURES: Stable cardiomegaly in the setting of coronary artery calcifications. No aneurysm. No pericardial effusion. UPPER ABDOMEN: No significant findings. Limited exam. THYROID AND OTHER SOFT TISSUES: No masses. No adenopathy. BONES: Stable degenerative change without fracture or suspicious osseous lesion. HARDWARE: None in the chest. OTHER: No other significant findings. IMPRESSION: NO ACUTE INTRATHORACIC PROCESS. NO SIGNIFICANT CHANGE FROM PRIOR STUDY. TECHNICAL DOCUMENTATION: JOB ID: [id number] Quality ID # [id number]: Final reports with documentation of one or more dose reduction techniques (e.g., Au tomated exposure control, adjustment of the mA and/or kV according to patient size, use of iterative reconstruction technique) 2010 [employer]- All Rights Reserved
[2017-06-18 14:33] LABS: CREATINE KINASE MB 1.32 ng/mL (<4.55)
[2017-06-18 14:37] LABS: TROPONIN I < 0.012 ng/mL
[2017-06-18 15:55] LABS: A TYPE INFLUENZA AG NEGATIVE (NEGATIVE); B INFLUENZA AG NEGATIVE (NEGATIVE)
--- NOTE | 2017-06-18 16:03 | HISTORY AND PHYSICAL E ---
History and Physical NAME: FABIENNE HURLEY : 1935 AGE: 81Y ADMITTED: 06/18/2017 ROOM: ED11 CHIEF COMPLAINT: Abdominal pain. HISTORY OF PRESENT ILLNESS: This is an 81-year-old male with A-fib with a complaint of cough and nonproductive, causing chest wall and abdominal pain, ongoing for 2 weeks. The patient has noted A-fib. The patient is brought to the ER, given 125 mg IV Solu-Medrol and 1 DuoNeb for the wheezing. The patient's initial workup most likely related to the atrial fibrillation which the patient was started on Cardizem drip and the blood pressure dropped in the ER and given some IV fluid, currently stable; and the patient also given IV Rocephin with the possible respiratory disorder and the cough and elevated lactic acid levels. The patient is currently feeling better. PAST MEDICAL HISTORY: 1. History of hypertension. 2. History of depression. 3. Peripheral vascular disease. 4. Chronic obstructive pulmonary disease. 5. History of pneumonia. 6. History of arthritis. SOCIAL HISTORY: Never smoke, no alcohol, no substance/drug abuse. FAMILY HISTORY: Reviewed and not pertinent. ALLERGIES: No known drug allergies. CURRENT MEDICATIONS: Diovan, questionable Eliquis and Cardizem. The patient is not sure about all the medications. REVIEW OF SYSTEMS: As above, all other negative. PHYSICAL EXAMINATION: VITAL SIGNS: Patient's pulse was 72, blood pressure was 103/74, respiratory rate was 17, O2 sat 97% on 2L of nasal cannula. GENERAL: The patient is alert, awake, in no acute distress. HEAD AND NECK: Normocephalic. PERRLA. LUNGS: Clear to auscultation bilaterally. HEART: S1, S2 is present. ABDOMEN: Soft, nontender. No mass. NEUROLOGIC: No focal weakness. Patient is moving all 4 extremities. LABORATORY DATA: WBC 7.0, hemoglobin is 14.2, platelet is 166. Sodium is 136, potassium 4.2, BUN is 17, creatinine 0.162. INR is 1.03. Blood gas; pH was 7.34, pCO2 is 54. Patient's lactic acid is 2.9. AST and ALT within normal limits. Cardiac enzymes is negative. TSH is 2.22. IMAGING STUDIES: The patient's chest x-ray is no acute radiographic finding. No significant finding in the chest. CARDIOLOGY STUDIES: The patient's EKG is atrial fibrillation with a rapid ventricular response. ASSESSMENT: 1. Atrial fibrillation with a rapid ventricular response. 2. Respiratory disorder from possible viral upper respiratory tract infection. 3. COPD. 4. Hypertension. PLAN: 1. Admit the patient in a tele bed. 2. Setup the patient with Cardizem drips. 3. Start the patient on Eliquis 5 mg p.o. twice a day and at discharge 2.5 mg p.o. twice a day. 4. I will cover with IV Rocephin. 5. Get the blood cultures, sputum culture, urine culture. 6. Give Xopenex nebulizer treatments. 7. Continue to monitor in the [facility]. 8. Consult cardiology for further evaluation. TIME SPENT: More than 30 minutes spent examining the patient, reviewing the records. DICTATING PHYSICIAN: STEPHANI PORTER M.D. [id number] PHY#: [id number] ID: [id number] JOB#: [id number] ACCT: [id number] cc:Erika SALMERON M.D. >
[2017-06-18] MEDS ORDERED: INFLUENZA ADLT QUAD (36MOS+) 2017-18 VAC 0.5 ML SYR IM PRN (16:37)
[2017-06-18] MEDS: LEVALBUTEROL HCL NEB 1.25 MG/3 ML AMPUL NEB SCH ×2 (16:56→21:13)
[2017-06-18] MEDS: APIXABAN 5 MG TABLET PO SCH (17:10)
[2017-06-18] MEDS: GUAIFENESIN SYRP 200 MG/10 ML UDC PO PRN (17:10)
[2017-06-18] MEDS: DOCUSATE SODIUM 100 MG CAPSULE PO SCH (17:10)
[2017-06-18] MEDS: AZITHROMYCIN 500 MG in DEXTROSE 5%-WATER 250 ML IV SCH (17:14)
[2017-06-18 18:08] LABS: APPEARANCE,URINE CLEAR; BILIRUBIN,URINE NEGATIVE (NEGATIVE); COLOR,URINE YELLOW; GLUCOSE, URINE NEGATIVE (NEGATIVE); KETONES,URINE NEGATIVE (NEGATIVE); LEUKOCYTE ESTERASE,URINE NEGATIVE (NEGATIVE); NITRITE,URINE NEGATIVE (NEGATIVE); PROTEIN,URINE 30 mg/dL (NEGATIVE)
[2017-06-18] MEDS: DILTIAZEM HCL/D5W 125 MG/125 ML RTUINJ IV PRN (18:08)
[2017-06-18 20:08] LABS: CREATINE KINASE MB 1.82 ng/mL (<4.55)
[2017-06-18 20:18] LABS: TROPONIN I < 0.012 ng/mL
[2017-06-18] MEDS: GUAIFENESIN 600 MG TABLET.SA PO SCH (21:48)
[2017-06-18] MEDS: FAMOTIDINE INJ/PF 20 MG/2 ML SDV IV SCH (21:48)
[2017-06-18] MEDS ORDERED: DILTIAZEM HCL 120 MG CAP.SR.24H PO SCH (22:00)
[2017-06-19] MEDS: LEVALBUTEROL HCL NEB 1.25 MG/3 ML AMPUL NEB SCH ×7 (00:59→23:54)
[2017-06-19 01:40] LABS: CREATINE KINASE MB 2.92 ng/mL (<4.55)
[2017-06-19 01:41] LABS: TROPONIN I < 0.012 ng/mL
[2017-06-19] MEDS: DILTIAZEM HCL/D5W 125 MG/125 ML RTUINJ IV PRN ×2 (04:38→23:45)
[2017-06-19 06:10] LABS: ABSOLUTE LYMPHOCYTES (AUTO) 0.8 10^3/uL (0.5-4.7); ABSOLUTE MONOCYTES (AUTO) 0.5 10^3/uL (0.1-1.4); ABSOLUTE NEUT (AUTO) 7.6 10^3/uL (1.7-8.2); BASOPHILS % (AUTO) 0.1 % (0-2); HEMATOCRIT 35.6 % (37.9-51.0); LYMPHOCYTES % (AUTO) 8.9 % (13-45); MEAN CORPUSCULAR HEMOGLOBIN 32.4 pg (27.0-33.4); MEAN CORPUSCULAR HGB CONC 33.4 g/dL (32.0-36.0); MEAN CORPUSCULAR VOLUME 97 fl (80-97); MONOCYTES % (AUTO) 5.6 % (3-13); PLATELET COUNT 152 10^3/uL (150-450); RED BLOOD COUNT 3.67 10^6/uL (4.35-5.55); RED CELL DISTRIBUTION WIDTH 13.9 % (11.5-14.0); SEGMENTED NEUTROPHILS % (AUTO) 85.4 % (42-78); TOTAL CELLS COUNTED % (AUTO) 100 %; WHITE BLOOD COUNT 8.9 10^3/uL (4.0-10.5)
[2017-06-19 06:12] LABS: HEMOGLOBIN 11.9 g/dL (13.5-17.0)
[2017-06-19 06:43] LABS: ANION GAP 16 (5-19); BLOOD UREA NITROGEN 19 mg/dL (7-20); CALCIUM 9.2 mg/dL (8.4-10.2); CHLORIDE 102 mmol/L (98-107); GLUCOSE 152 mg/dL (75-110); MAGNESIUM 1.7 mg/dL (1.6-2.3); POTASSIUM 4.4 mmol/L (3.6-5.0); SODIUM 135.8 mmol/L (137-145)
[2017-06-19 07:10] LABS: CARBON DIOXIDE 18 mmol/L (22-30)
[2017-06-19] MEDS: ACETAMINOPHEN 325 MG TABLET PO PRN (08:40)
[2017-06-19] MEDS ORDERED: CEFTRIAXONE 1 GM/D5W RTU 1 GM/50 ML RTUPB IV SCH (10:00)
[2017-06-19] MEDS: DOCUSATE SODIUM 100 MG CAPSULE PO SCH ×2 (10:42→17:54)
[2017-06-19] MEDS: APIXABAN 5 MG TABLET PO SCH ×2 (10:42→17:54)
[2017-06-19] MEDS: GUAIFENESIN 600 MG TABLET.SA PO SCH ×2 (10:42→22:04)
[2017-06-19] MEDS: FAMOTIDINE INJ/PF 20 MG/2 ML SDV IV SCH ×2 (10:43→22:04)
[2017-06-19] MEDS: CEFTRIAXONE SODIUM 1,000 MG in DEXTROSE 5%-WATER 50 ML IV SCH (10:46)
[2017-06-19] MEDS ORDERED: METHYLPREDNISOLONE INJ 40 MG/1 ML SDV ONE ×3 (13:00→21:48)
[2017-06-19] MEDS: AZITHROMYCIN 500 MG in DEXTROSE 5%-WATER 250 ML IV SCH (17:52)
--- NOTE | 2017-06-19 20:48 | PROGRESS NOTE E ---
Progress Note NAME: FABIENNE HURLEY : 1935 AGE: 81Y DATE: 06/19/2017 ROOM: 334 SUBJECTIVE: The patient is still complaining of some wheezing and short of breath. The patient's abdomen is still a little bit distended. No abdominal pain. No nausea. No vomiting. The patient's heart rate is currently on a Cardizem drip *------*. The patient seen by Dr. Lazo. OBJECTIVE: VITAL SIGNS: Blood pressure was 130/80, temperature is 98.1, pulse was 100, respiration was 18, O2 sat 94% on 2L nasal cannula. GENERAL: The patient is alert, awake, oriented, in no acute distress. HEAD AND NECK: Normocephalic. PERRLA. LUNGS: Decreased breath sounds bilaterally with bilateral audible wheezing present. HEART: S1, S2 is irregular.. ABDOMEN: Mild distended on the left side with soft bowel sounds present. EXTREMITIES: No edema. NEUROLOGIC: The patient moves all 4 extremities. No focal weakness since. LABORATORY DATA: The patient's lab is all stable. IMAGING STUDIES: The patient's CT scan of the chest with no other acute findings. CT abdomen and pelvis was performed which showed some 8 cm soft tissue hematoma. ASSESSMENT: 1. COPD WITH ACUTE EXACERBATION. 2. ATRIAL FIBRILLATION WITH RAPID VENTRICULAR RESPONSE. 3. SOFT TISSUE HEMATOMA. 4. HYPERTENSION. 5. HYPERLIPIDEMIA. PLAN: At this point continue IV Solu-Medrol, respiratory treatments. We will currently hold the Eliquis due to the hematoma. Discussed with general surgery, evaluated the patient, and continue DVT prophylaxis and continue her current medications. We will repeat the CBC and Chem-7 in the morning and we will continue the Cardizem drip and follow with cardiology. Discussed with the patient about all the *------* reports. I hope the patient continues to be improved. DICTATING PHYSICIAN: STEPHANI PORTER M.D. [id number] PHY#: [id number] ID: [id number] JOB#: [id number] ACCT: [id number] cc: >
--- NOTE | 2017-06-19 22:10 | RADIOLOGY REPORT (SQ) ---
EXAM DESCRIPTION: CT ABD/PELVIS NO ORAL OR IV COMPLETED DATE/TIME: 06/19/2017 10:00 pm REASON FOR STUDY: ABD PAIN COMPARISON: 2010 TECHNIQUE: CT scan of the abdomen and pelvis performed without intravenous or oral contrast. Images reviewed with lung, soft tissue, and bone windows. Reconstructed coronal and sagittal MPR images revi ewed. All images stored on PACS. All CT scanners at this facility use dose modulation, iterative reconstruction, and/or weight based d osing when appropriate to reduce radiation dose to as low as reasonably achievable (ALARA). [facility]: Dose Right [facility]: CareDose [facility]: Dose Right [facility]: Teradose 4D [facility]: [employer] RADIATION DOSE: mGy. LIMITATIONS: None. FINDINGS: LOWER CHEST: No significant findings. No nodules or infiltrates. NON-CONTRASTED LIVER, SPLEEN, ADRENALS: Evaluation limited by lack of IV contrast. No identified sign ificant masses. PANCREAS: No masses. No peripancreatic inflammatory changes. GALLBLADDER: No identified stones by CT criteria. No inflammatory changes to suggest cholecystitis. RIGHT KIDNEY AND URETER: No suspicious masses. Assessment limited by lack of IV contrast. No signif icant calcifications. No hydronephrosis or hydroureter. LEFT KIDNEY AND URETER: No suspicious masses. Assessment limited by lack of IV contrast. No signifi cant calcifications. No hydronephrosis or hydroureter. AORTA AND RETROPERITONEUM: No aneurysm. No retroperitoneal masses or adenopathy. BOWEL AND PERITONEAL CAVITY: No obvious masses or inflammatory changes. No free fluid. Diverticulosi s. APPENDIX: Normal. PELVIS, BLADDER, AND ABDOMINAL WALL:4.2 x 9.2 x 8.0 cm mass in the abdominal wall on the left. Addit ional smaller mass inferior to the primary mass. Presumably hematoma. No free fluid. Bladder normal . BONES: No significant findings. OTHER: No other significant finding. IMPRESSION: Hematomas in the abdominal wall on the left. COMMENT: Quality ID # [id number]: Final reports with documentation of one or more dose reduction techniques (e.g., Automated exposure control, adjustment of the mA and/or kV according to patient size, use of iterative reconstruction technique) TECHNICAL DOCUMENTATION: JOB ID: [id number] [employer]- All Rights Reserved
--- NOTE | 2017-06-19 23:21 | PDOC CONSULTATION ---
Consultation Consult Date: 06/19/17 Consult reason:: left abdominal intramuscular hematoma,pt on Eloquis History of Present Illness Admission Date/PCP: 06/18/17 13:02 MARCIAL CUBA MD History of Present Illness: FABIENNE HURLEY is a 81 year old male c/o left abdominal pains x 2weeks. He is having bouts of coughing for past [address] scan of abdomen which showed an intramuscular 10x9x8 cm hematomaleft rectus muscle contained. Pt on Eloquis which was just stopped after the CT scan today. Past Medical History Cardiac Medical History: Reports: Hypertension - since 2004?, Peripheral Vascular Disease Denies: Atrial Fibrillation, Congestive Heart Failure, Coronary Artery Disease, Myocardial Infarction, Hyperlipidema, Pulmonary Embolism, Heart Murmur Pulmonary Medical History: Reports: Chronic Obstructive Pulmonary Disease (COPD) , Pneumonia - 2010 Denies: Asthma, Bronchitis, Respiratory Failure, Sleep Apnea, Tuberculosis Neurological Medical History: Denies: Seizures Malignancy Medical History: Denies: Lung Cancer Musculoskeltal Medical History: Reports: Arthritis - arms,rt ankle,hands Hematology: Denies: Anemia Past Surgical History Past Surgical History: Denies: Pacemaker Social History Smoking Status: Never Smoker Frequency of Alcohol Use: None Hx Recreational Drug Use: No Drugs: None Hx Prescription Drug Abuse: No Family History Family History: None Parental Family History Reviewed: Yes Children Family History Reviewed: No Sibling(s) Family History Reviewed.: No Medication/Allergy Home Medications: Furosemide [Lasix 40 mg Tablet] 40 mg PO QAM 06/18/17 Tramadol HCl [Ultram 50 mg Tablet] 50 mg PO Q6HP PRN 06/18/17 Valsartan [Diovan 160 mg Tablet] 160 mg PO DAILY 06/18/17 Allergies/Adverse Reactions: No Known Allergies Allergy (Verified 07/13/16 09:09) Review of Systems Constitutional: PRESENT: other Eyes: PRESENT: other - no visual change Ears: PRESENT: other - decreased hearing Nose, Mouth, and Throat: PRESENT: other - no sore throat Cardiovascular: PRESENT: other - no chest pains Respiratory: PRESENT: cough Gastrointestinal: PRESENT: abdominal pain - left abdominal wall pains Genitourinary: PRESENT: other - no dysuria Integumentary: PRESENT: other - dark discoloration of both lower extremities. Neurological: PRESENT: other - no seizures Psychiatric: PRESENT: other - no anxiety Endocrine: PRESENT: other - no polyuria Hematologic/Lymphatic: PRESENT: other - no easy bruisability Physical Exam Vital Signs: Temp Pulse Resp BP Pulse Ox 98.7 F 91 18 123/77 100 06/19/17 07:31 06/19/17 08:01 06/19/17 08:01 06/19/17 07:57 06/19/17 08:01 Intake & Output 06/18/17 06/19/17 06/20/17 06:59 06:59 06:59 Intake Total 2138 Output Total 850 Balance 1288 Weight 83.3 kg General appearance: PRESENT: no acute distress Head exam: PRESENT: atraumatic Eye exam: PRESENT: conjunctiva pink Mouth exam: PRESENT: moist, tongue midline Neck exam: PRESENT: other - no thyromegaly Respiratory exam: PRESENT: clear to auscultation poonam Cardiovascular exam: PRESENT: irregular rhythm Pulses: PRESENT: normal radial pulses GI/Abdominal exam: PRESENT: tenderness - swollen tender area left paraumbilical area about 10x10 cm,. Rest of the abdomen soft and nontender Rectal exam: PRESENT: deferred Extremities exam: PRESENT: +1 edema, other - dark discoloration bilateral lower legs, nontender Musculoskeletal exam: PRESENT: ambulatory Neurological exam: PRESENT: alert, oriented to person, oriented to place, oriented to time, oriented to situation Psychiatric exam: PRESENT: appropriate affect Skin exam: PRESENT: warm Results Laboratory Results: 06/19/17 05:55 06/19/17 05:55 06/19/17 06/19/17 05:55 05:55 WBC 8.9 RBC 3.67 L Hgb 11.9 L D Hct 35.6 L MCV 97 MCH 32.4 MCHC 33.4 RDW 13.9 Plt Count 152 Seg Neutrophils % 85.4 H Lymphocytes % 8.9 L Monocytes % 5.6 Eosinophils % 0.0 Basophils % 0.1 Absolute Neutrophils 7.6 Absolute Lymphocytes 0.8 Absolute Monocytes 0.5 Absolute Eosinophils 0.0 Absolute Basophils 0.0 Sodium 135.8 L Potassium 4.4 Chloride 102 Carbon Dioxide 18 L D Anion Gap 16 BUN 19 Creatinine 1.42 H Est GFR ( Amer) 58 L Est GFR (Non-Af Amer) 48 L Glucose 152 H Calcium 9.2 Magnesium 1.7 06/18/17 06/18/17 06/18/17 13:50 13:50 19:15 Creatine Kinase 392 H 466 H CK-MB (CK-2) 1.32 Troponin I < 0.012 NT-Pro-B Natriuret Pep 06/18/17 06/19/17 06/19/17 19:15 01:07 01:07 Creatine Kinase 661 H CK-MB (CK-2) 1.82 2.92 Troponin I < 0.012 < 0.012 NT-Pro-B Natriuret Pep 06/19/17 05:55 Creatine Kinase CK-MB (CK-2) Troponin I NT-Pro-B Natriuret Pep 1510 H Impressions: Chest CT 06/18/17 00:00 IMPRESSION: NO ACUTE INTRATHORACIC PROCESS. NO SIGNIFICANT CHANGE FROM PRIOR STUDY. Chest X-Ray 06/18/17 11:20 IMPRESSION: NO ACUTE RADIOGRAPHIC FINDING IN THE CHEST. NO SIGNIFICANT CHANGE FROM PRIOR STUDY. Abdomen/Pelvis CT 06/19/17 00:00 IMPRESSION: Hematomas in the abdominal wall on the left. Assessment & Plan - Diagnosis (1) Hematoma of abdominal wall Is this a current diagnosis for this admission?: Yes - Time Time Spent: 30 to 50 Minutes - Inpatient Certification Medical Necessity: Need Close Monitoring Due to Risk of Patient Decompensation, Need for Pain Control, Risk of Diagnosis Which Will Require Inpatient Eval/Care/ Monitoring - Plan Summary Plan Summary: Hold Eloquis Monitor H&H &Coags Serial exam of abdominal wall hematoma. No need for evacuation at this time. Expect to subside on it's own.
[2017-06-20] MEDS ORDERED: METHYLPREDNISOLONE INJ 40 MG/1 ML SDV ONE (01:52)
[2017-06-20] MEDS ORDERED: METHYLPREDNISOLONE INJ 125 MG/2 ML SDV IV ONE (02:00)
[2017-06-20] MEDS: GUAIFENESIN SYRP 200 MG/10 ML UDC PO PRN (02:51)
[2017-06-20 03:24] LABS: HEMATOCRIT 34.2 % (37.9-51.0); HEMOGLOBIN 11.3 g/dL (13.5-17.0); MEAN CORPUSCULAR HEMOGLOBIN 32.1 pg (27.0-33.4); MEAN CORPUSCULAR HGB CONC 33.1 g/dL (32.0-36.0); MEAN CORPUSCULAR VOLUME 97 fl (80-97); PLATELET COUNT 150 10^3/uL (150-450); RED BLOOD COUNT 3.52 10^6/uL (4.35-5.55); RED CELL DISTRIBUTION WIDTH 14.1 % (11.5-14.0); WHITE BLOOD COUNT 11.6 10^3/uL (4.0-10.5)
[2017-06-20] MEDS: LEVALBUTEROL HCL NEB 1.25 MG/3 ML AMPUL NEB SCH ×5 (03:25→21:48)
[2017-06-20] MEDS: IPRATROPIUM BROMIDE 0.02% NEB 0.5 MG/2.5 ML AMPUL NEB SCH ×5 (03:25→21:47)
[2017-06-20] MEDS ORDERED: BUDESONIDE NEB 0.5 MG/2 ML AMPUL NEB ONE (04:00)
[2017-06-20 04:01] LABS: HEMATOCRIT 33.5 % (37.9-51.0); HEMOGLOBIN 11.3 g/dL (13.5-17.0); MEAN CORPUSCULAR HEMOGLOBIN 32.7 pg (27.0-33.4); MEAN CORPUSCULAR HGB CONC 33.8 g/dL (32.0-36.0); MEAN CORPUSCULAR VOLUME 97 fl (80-97); PLATELET COUNT 145 10^3/uL (150-450); RED BLOOD COUNT 3.46 10^6/uL (4.35-5.55); RED CELL DISTRIBUTION WIDTH 14.3 % (11.5-14.0); WHITE BLOOD COUNT 10.6 10^3/uL (4.0-10.5)
[2017-06-20 04:11] LABS: ARTERIAL BLOOD BASE EXCESS -5.1 mmol/L; ARTERIAL BLOOD FIO2 2L; ARTERIAL BLOOD H2CO3 1.06 mmol/L (1.05-1.35); ARTERIAL BLOOD HCO3 19.6 mmol/L (20-26); ARTERIAL BLOOD O2 SATURATION 97.3 % (94-98); ARTERIAL BLOOD PCO2 35.3 mmHg (35-45); ARTERIAL BLOOD PH 7.36 (7.35-7.45); ARTERIAL BLOOD PO2 97.4 mmHg (80-100); ARTERIAL BLOOD TOTAL CO2 20.7 mmol/L (23-27)
[2017-06-20] MEDS ORDERED: RACEPINEPHRINE HCL 2.25% NEB 0.5 ML AMPUL NEB ONE ×2 (04:18→04:45)
[2017-06-20 04:33] LABS: ABSOLUTE LYMPHOCYTES# (MANUAL) 0.3 10^3/uL (0.5-4.7); ABSOLUTE MONOCYTES # (MANUAL) 0.3 10^3/uL (0.1-1.4); BAND NEUTROPHILS % (MANUAL) 1 % (3-5); BASOPHILS % (MANUAL) 0 % (0-2); EOSINOPHILS % (MANUAL) 0 % (0-6); LYMPHOCYTES % (MANUAL) 3 % (13-45); MONOCYTES % (MANUAL) 3 % (3-13); SEGMENTED NEUTROPHILS % (MAN) 93 % (42-78); TOTAL CELLS COUNTED 100
[2017-06-20 04:34] LABS: RBC MORPHOLOGY COMMENT NORMO-CYTIC/CHROMIC
[2017-06-20 04:36] LABS: BLOOD UREA NITROGEN 28 mg/dL (7-20); CALCIUM 9.1 mg/dL (8.4-10.2); GLUCOSE 176 mg/dL (75-110)
[2017-06-20 04:37] LABS: ANION GAP 16 (5-19); CARBON DIOXIDE 19 mmol/L (22-30); CHLORIDE 94 mmol/L (98-107); SODIUM 128.5 mmol/L (137-145)
--- NOTE | 2017-06-20 04:38 | CONSULTATION REPORT E ---
Consultation Report NAME: FABIENNE HURLEY : 1935 AGE: 81Y DATE: 06/19/2017 334 A TO: TROY ERICKSON M.D. FROM: MARCIAL CUBA M.D. Requesting Physician Of note, the patient was seen briefly on 06/18/2017 and I adjusted the Cardizem drip. At that the patient was in respiratory distress and also was [id number] and hence, since it is a new patient, I thought I would let him get better with heart rate controlled and then official consult done on 06/19/2017. REASON FOR CONSULTATION: Patient with acute exacerbation of COPD/bronchitis with wheezing and atrial fibrillation with rapid ventricular response in a patient with a history of paroxysmal atrial fibrillation. HISTORY: The patient is not a very good historian. The patient has history of paroxysmal atrial fibrillation with complaint of cough, which is nonproductive mostly, but occasionally producing scanty white sputum and wheezing and cough causing chest wall pain and abdominal pain due to incessant coughing. Hence, was admitted to the ER and was found to have not only wheezing, but atrial fibrillation with rapid ventricular response. The patient has a history of paroxysmal atrial fibrillation, which has been progressed to atrial fibrillation with rapid ventricular response due to his decompensated lung problem. The patient has no real anginal symptoms, but has chest pain on coughing and has chest wall tenderness. He also has coughing causing abdominal pain. He also today has been having some bloating of his abdomen and the abdomen is tympanic, suggestive of air swallowing due to the patient's shortness of breath. He denies any syncope or dizziness. He has a history of chronic leg edema, most likely secondary to right heart failure, but this is not clear. He has no history of TIA/CVA. He denies any true anginal symptoms. The patient denies any past history congestive heart failure. There are no TIA/CVA symptoms. The patient does feel palpitations, but no dizziness or syncope. PAST MEDICAL HISTORY: Positive for: 1. History of hypertension, which the patient states is well controlled. 2. He has a history of depression. 3. He has a history of peripheral vascular disease and states he has had five stents in his lower extremity arteries. 4. He also has history of COPD. The patient has never smoked. 5. History of asthma. 6. He also has history of prior pneumonia. 7. History of arthritis. There is no history of diabetes mellitus. No history of NJ. The patient claims that he has no history of congestive heart failure, but I am sure he has right heart failure causing leg edema and chronic edema due to the patient having pulmonary hypertension. I do not have any records, but in June 2010, the patient had an echocardiogram, which showed the left ventricular size was normal. The patient had no LVH. There was no focal or regional wall motion abnormality. LV ejection fraction was normal in excess of 60%. The patient had no other valvular disease, except for mild to moderate tricuspid regurgitation with moderate pulmonary hypertension with a right ventricular systolic pressure of 53 mmHg, which is moderate pulmonary hypertension. I am sure this has progressed. The patient has chronic leg swelling and has had cellulitis of the legs and also due to peripheral vascular disease has had ulcers, especially of the left leg, which is healing since he is taking care [facility] [place]. PAST SURGICAL HISTORY: Positive for angiogram and stents put in his lower extremity arteries. He denies any other further surgeries. SOCIAL HISTORY: He has never smoked. There is no history of substance or drug abuse. FAMILY HISTORY: Negative for NJ or heart failure or COPD or asthma. The patient says there is history of hypertension. ALLERGIES: The patient has no known allergies. CODE STATUS: This patient is a FULL CODE. His and son are his surrogate healthcare decision-makers. MEDICATIONS: As per the medication administration record and the patient is on: 1. Eliquis 5 mg p.o. b.i.d. 2. He was on Cardizem, but now is on Cardizem drip, which I have increased from 5 mg to 7.5 mg per hour and we will increase as needed. 3. He is also on Diovan. The patient states he is compliant with his medications. REVIEW OF SYMPTOMS: CONSTITUTIONAL: Denies any fevers, chills or rigors. Complains of generalized fatigue and weakness. HEAD: Denies any head injury or headaches. Denies any dizziness. EYES: No history of amblyopia, diplopia. No history of amaurosis fugax. EARS: History of bilateral hearing loss, which is moderate, but does understand when you speak in a loud voice. There is no recurrent ear infection. NOSE: No history of nasal polyps. No history of nosebleeds. No history of hay fever. MOUTH: No history of ulcers in the mouth. No altered taste sensation. No bleeding from gums. THROAT: No odynophagia or dysphagia. No history of recurrent sore throats. SKIN: There has been stasis dermatitis of the lower extremities. There is no skin cancer. There is no psoriasis. There is no pruritus. There is no discoloration of the skin. NECK: The patient denies any pain in his neck. There is no history of goiter. LUNGS: History of asthma and COPD. The patient most likely had moderate pulmonary hypertension in 2010 and I am sure with the COPD has progressed, which has caused his lower leg extremity edema, which is chronic and now seems to be trace to mild with venous stasis dermatitis changes. He has no history of pulmonary embolism. The patient denies any sleep apnea, but the patient is morbidly obese and he is not sure whether he had a sleep study. CARDIAC: History of hypertension well controlled. Most likely, although the patient does not think he has, has chronic right ventricular systolic failure. He also has history of paroxysmal atrial fibrillation and was Eliquis, which has been restarted. Now the patient is back in atrial fibrillation with rapid ventricular response due to his lung decompensation. There is no history of NJ or anginal symptoms. There are no symptoms or signs of left heart failure. There is no syncope. The patient does have some orthopnea, but no PND. Leg swelling as mentioned earlier. ENDOCRINE: No history of diabetes mellitus. No history of polyuria. No history of heat or cold intolerance. No history hypothyroid or hyperparathyroidism. RENAL: The patient denies chronic kidney disease, but the patient's BUN was 19 and creatinine 1.42. 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 The patient denies any symptoms of hematuria, pyuria, or dysuria. GASTROINTESTINAL: No history of GERD. No history of GI bleed. No history of peptic ulcer disease. No jaundice or cirrhosis of the liver. The patient has abdominal pain due to coughing. There is no history of altered bowel movements. Also, the patient appears to be having air swallowing due to his shortness of breath due to acute exacerbation of COPD since the abdomen is distended, but is tympanic. MUSCULOSKELETAL: No history of muscle weakness. He has arthritis, but no collagen vascular disease. CENTRAL NERVOUS SYSTEM: No history TIA or CVA. No history of seizures. No history of altered gait disturbance and no history of sleep apnea. PSYCHIATRIC: The patient has history of depression, which is well controlled. There is no history of suicidal or homicidal ideation. VASCULAR: No history of DVT. He has history of peripheral vascular disease and had stents. Due to his COPD, the patient does not walk much and hence, there are no definitive symptoms of claudication. HEMATOLOGIC: No history of bleeding diathesis or clotting disorders. PHYSICAL EXAMINATION: GENERAL: On examination, the patient is in mild respiratory distress with no accessory muscles of respiration used at present. The patient is mildly obese in mild respiratory distress. VITAL SIGNS: The patient is afebrile with temperature 98.8 degrees Fahrenheit. Respirations 20 per minute. His pulse is 98 beats per minute, irregularly irregular. Blood pressure is 115/67. His O2 saturation is 100% on 1 liter of nasal cannula. HEAD: Atraumatic, normocephalic. EYES: Pupils are equal, round, and regular, reactive to light and accommodation. Extraocular movements are normal. There is no conjunctival pallor. There is no scleral icterus. EARS: Tympanic membranes are intact. External auditory canals are clear. NOSE: There is no deviated nasal septum. There is no inflammation of the nasal mucous membrane. MOUTH: Mucous membranes of the mouth are moist. Tongue is moist. There are no ulcers. There is no bleeding from the gums. THROAT: There is no redness of the oropharynx. There are no exudates. SKIN: There are no skin rashes. There is no petechiae or ecchymoses. There is venous stasis dermatitis of the lower extremities. NECK: Supple. There is mild JVD present. Carotids are equal. There is no bruit. There is no lymphadenopathy. There is no goiter. Trachea is central. LUNGS: Show bilateral wheezing and a few rhonchi. There is diminished air entry and prolonged expiration and hyperresonance on percussion. There is also some chest wall tenderness in the front of the chest, reproducing some of the symptoms exacerbated by the patient's cough. The symptoms are not suggestive of angina or anginal equivalent. ABDOMEN: Obese There is no hepatosplenomegaly. Bowel sounds are well heard. The abdomen is distended and tympanic with no evidence of ascites. Most likely due to air swallowing. There is no rebound, guarding rigidity. There is no tenderness. EXTREMITIES: Femorals are difficult to palpate. There are no femoral bruits. Leg pulses are not palpable due to his chronic venous insufficiency/edema and venous stasis dermatitis changes. There is mild pedal edema bilaterally. There is some venous stasis dermatitis, but no cellulitis. No definite ulcer, but there seems to be some healed scars of some heel ulcers in the lower left leg. There is no cyanosis or clubbing. CENTRAL NERVOUS SYSTEM: The patient is conscious, awake, alert, oriented x3, with no focal deficits. PSYCHIATRIC: The patient appears to be slightly anxious, but his judgement and insight are intact. DIAGNOSTIC STUDIES: The patient's chest x-ray shows no acute findings except for changes of COPD. There is no heart failure or pneumonia or any infiltrate. His EKG shows atrial fibrillation with rapid ventricular response. His hemoglobin is 11.9, hematocrit 35.6. Patient's BUN is 19, creatinine 1.42, blood sugar 132. The patient's calcium is 9.2. GFR is reduced at 58 mL. Potassium 4.4, sodium 135.8, chloride 102. On admission, the patient's lactate acid was 2.9, which is slightly elevated and his CO2 was 20. Note, the patient's admission blood gases showed pH of 7.34, PCO2 of 54. His INR as 1.03. His TSH was 2.22. Note, on admission is BUN was 17 and creatinine was 0.62 and hence, this is increased, probably due to over diuresis. IMPRESSION: 1. Atrial fibrillation with rapid ventricular response, most likely secondary to his decompensated lung problem. 2. Acute chronic obstructive pulmonary disease exacerbation with wheezing/asthmatic bronchitis. 3. History of asthma. 4. History of hypertension. 5. Moderately pulmonary hypertension by echo of 2010 and I am sure this has progressed. 6. Most likely the patient has chronic right-sided heart failure. 7. Arthritis. 8. Peripheral vascular disease with history of stents. 9. Depression. RECOMMENDATIONS: Agree with admission to a monitored bed. Increase the Cardizem as tolerated by his blood pressure. Continue Eliquis 5 mg p.o. b.i.d. Continue IV Rocephin. The patient also had blood cultures, sputum and urine cultures. Continue the patient on Xopenex nebulizer treatment. Continue to monitor in intermediate care telemetry unit. Would recommend later once the heart rate is controlled, to repeat an echo or ask Dr. Cuba if he had an echo subsequent to 2010 to see if the pulmonary hypertension has increased. Would also get a VQ scan to make sure the patient has no chronic pulmonary embolism causing his pulmonary hypertension, although the cause of his pulmonary hypertension could be his asthma/COPD. Discussed the case with Dr. Marinelli, covering for Dr. Cuba, the attending physician. Note, 45 minutes spent on this patient with more than 50% of the time spent on direct patient care. His medications have been reviewed and adjustments made in the form of increasing the patient's Cardizem drip. Medical decision-making is of high complexity. We will discuss the case with Dr. Cuba when he comes back on service tomorrow, 06/19/2017. Note, the patient was seen at 10 a.m. and 45 minutes spent on the patient's care. We will follow the patient closely. Discussed the patient's clinical condition with the patient in layman's terms so that he could understand. DICTATING PHYSICIAN: TROY ERICKSON M.D. [id number] PHY#: [id number] ID: [id number] JOB#: [id number] ACCT: [id number] cc:TROY ERICKSON M.D. >
[2017-06-20 04:56] LABS: POTASSIUM 5.6 mmol/L (3.6-5.0)
[2017-06-20 05:07] LABS: PLATELET COMMENT ADEQUATE
[2017-06-20] MEDS: BUSPIRONE HCL 10 MG TABLET PO SCH ×2 (05:13→13:15)
[2017-06-20] MEDS: METHYLPREDNISOLONE INJ 125 MG/2 ML SDV IV SCH ×4 (05:13→23:53)
[2017-06-20] MEDS ORDERED: METHYLPREDNISOLONE INJ 40 MG/1 ML SDV IV SCH ×3 (06:00)
[2017-06-20] MEDS: APIXABAN 5 MG TABLET PO SCH ×2 (10:13→17:33)
[2017-06-20] MEDS: FAMOTIDINE INJ/PF 20 MG/2 ML SDV IV SCH ×2 (10:13→21:17)
[2017-06-20] MEDS: DOCUSATE SODIUM 100 MG CAPSULE PO SCH ×2 (10:13→17:33)
[2017-06-20] MEDS: GUAIFENESIN 600 MG TABLET.SA PO SCH ×2 (10:14→21:17)
[2017-06-20] MEDS: CEFTRIAXONE SODIUM 1,000 MG in DEXTROSE 5%-WATER 50 ML IV SCH (10:14)
--- NOTE | 2017-06-20 14:42 | PDOC PROGRESS REPORT ---
Subjective Progress Note for:: 06/20/17 Reason For Visit: ATRIAL FRIBRILLATION WITH RAPID VENTRICULAR RESPON Chief complaint is shortness of breath; abdominal pain. Physical Exam Vital Signs: Temp Pulse Resp BP Pulse Ox 98.4 F 102 H 18 140/80 H 98 06/20/17 04:57 06/20/17 11:38 06/20/17 11:38 06/20/17 08:00 06/20/17 08:00 Intake & Output 06/19/17 06/20/17 06/21/17 06:59 06:59 06:59 Intake Total 2138 300 Output Total 850 200 Balance 1288 100 Weight 83.3 kg 96.7 kg General appearance: PRESENT: other - Recent tachypnea, moderate to severe respiratory distress; with expiratory wheezing GI/Abdominal exam: PRESENT: other - Abdomen is diffusely swollen, and tender at the site of the hematoma left lateral rectus musculature Results Laboratory Results: 06/20/17 03:47 06/20/17 03:47 06/19/17 06/20/17 06/20/17 20:00 03:47 03:47 WBC 11.6 H 10.6 H RBC 3.52 L 3.46 L Hgb 11.3 L 11.3 L Hct 34.2 L 33.5 L MCV 97 97 MCH 32.1 32.7 MCHC 33.1 33.8 RDW 14.1 H 14.3 H Plt Count 150 145 L Seg Neutrophils % Not Reportable Lymphocytes % Not Reportable Monocytes % Not Reportable Eosinophils % Not Reportable Basophils % Not Reportable Absolute Neutrophils Not Reportable Absolute Lymphocytes Not Reportable Absolute Monocytes Not Reportable Absolute Eosinophils Not Reportable Absolute Basophils Not Reportable Carbonic Acid HCO3/H2CO3 Ratio ABG pH ABG pCO2 ABG pO2 ABG HCO3 ABG O2 Saturation ABG Base Excess FiO2 Sodium 128.5 L Potassium 5.6 H D Chloride 94 L Carbon Dioxide 19 L Anion Gap 16 BUN 28 H Creatinine 1.54 H Est GFR ( Amer) 53 L Est GFR (Non-Af Amer) 44 L Glucose 176 H Calcium 9.1 06/20/17 03:55 WBC RBC Hgb Hct MCV MCH MCHC RDW Plt Count Seg Neutrophils % Lymphocytes % Monocytes % Eosinophils % Basophils % Absolute Neutrophils Absolute Lymphocytes Absolute Monocytes Absolute Eosinophils Absolute Basophils Carbonic Acid 1.06 HCO3/H2CO3 Ratio 18:1 ABG pH 7.36 ABG pCO2 35.3 ABG pO2 97.4 ABG HCO3 19.6 L ABG O2 Saturation 97.3 ABG Base Excess -5.1 FiO2 2L Sodium Potassium Chloride Carbon Dioxide Anion Gap BUN Creatinine Est GFR ( Amer) Est GFR (Non-Af Amer) Glucose Calcium 06/18/17 17:45 Clean Catch Midstream Urine Culture - Final NO GROWTH 2 DAYS 06/18/17 06/18/17 06/18/17 13:50 13:50 19:15 Creatine Kinase 392 H 466 H CK-MB (CK-2) 1.32 Troponin I < 0.012 NT-Pro-B Natriuret Pep 06/18/17 06/19/17 06/19/17 19:15 01:07 01:07 Creatine Kinase 661 H CK-MB (CK-2) 1.82 2.92 Troponin I < 0.012 < 0.012 NT-Pro-B Natriuret Pep 06/19/17 05:55 Creatine Kinase CK-MB (CK-2) Troponin I NT-Pro-B Natriuret Pep 1510 H Impressions: Chest CT 06/18/17 00:00 IMPRESSION: NO ACUTE INTRATHORACIC PROCESS. NO SIGNIFICANT CHANGE FROM PRIOR STUDY. Abdomen/Pelvis CT 06/19/17 00:00 IMPRESSION: Hematomas in the abdominal wall on the left. Assessment & Plan - Diagnosis (1) Hematoma of abdominal wall Is this a current diagnosis for this admission?: Yes Plan: Stable from a clinical standpoint; globin declined slightly: Blood thinner held ; no clinical indication for any surgical intervention Recommendations: 1. No plan to drain hematoma; leave alone and allow patient's body to absorb 2. Attention will need to be directed towards acute respiratory issues 3.. We will sign off for now; call again if needed
[2017-06-20] MEDS: AZITHROMYCIN 500 MG in DEXTROSE 5%-WATER 250 ML IV SCH (17:33)
[2017-06-20 18:30] LABS: ALANINE AMINOTRANSFERASE 37 U/L (21-72); ALBUMIN 4.2 g/dL (3.5-5.0); ALKALINE PHOSPHATASE 56 U/L (38-126); ANION GAP 13 (5-19); ASPARTATE AMINO TRANSFERASE 100 U/L (17-59); BILIRUBIN,DIRECT 0.3 mg/dL (0.0-0.4); BILIRUBIN,TOTAL 0.4 mg/dL (0.2-1.3); BLOOD UREA NITROGEN 41 mg/dL (7-20); CALCIUM 9.1 mg/dL (8.4-10.2); CARBON DIOXIDE 22 mmol/L (22-30); CHLORIDE 90 mmol/L (98-107); GLUCOSE 168 mg/dL (75-110); POTASSIUM 5.5 mmol/L (3.6-5.0); SODIUM 125.2 mmol/L (137-145); TOTAL PROTEIN 7.1 g/dL (6.3-8.2)
--- NOTE | 2017-06-20 20:05 | XCELERA REPORT ---
[address] [address] Transthoracic Echocardiogram Report Name: FABIENNE HURLEY Age: 81 yrs Gender: Male : 1935 Patient Status: Inpatient Patient Location: [address] [place] [address] Study Date: 06/20/2017 03:20 PM Height: 69 in Weight: 216 lb BSA: 2.1 m2 Procedure: A two-dimensional transthoracic echocardiogram with color flow and Doppler was performed. The study was technically difficult with many images being suboptimal in quality. Reason For Study: Afib ' Pulmonary hypertension. History: Afib ' Pulmonary hypertension. Ordering Physician: PETRONA ERICKSON Performed By: Shahla Thomas Interpretation Summary The left ventricle is normal in size. There is normal left ventricular wall thickness. Left ventricular systolic function is normal. LV EF is 65% The left atrium is mildly dilated. There is no evidence of mitral valve prolapse. There is no vegetation seen on the mitral valve. There is no mitral valve stenosis. There is a trace amount of mitral regurgitation There is no aortic valve stenosis There is no LVOT obstruction. No aortic regurgitation is present. There is a moderate amount of tricuspid regurgitation There is moderate pulmonary hypertension by echo RVSP is 49 mm of Hg , with RA mean of 10. There is no pericardial effusion. LV diastolic function could not be adequately assessed due to atrial fibrilation. The left ventricular wall motion is normal. MMode/2D Measurements & Calculations RVDd: 2.6 cm LVIDd: 5.0 cm FS: 34.0 % Ao root diam: 3.4 cm IVSd: 0.95 cm LVIDs: 3.3 cm EDV(Teich): 116.2 ml LVPWd: 0.97 cmESV(Teich): 43.3 ml Ao root area: 9.3 cm2 EF(Teich): 62.8 % LA dimension: 4.3 cm LVOT diam: 2.4 cm LVOT area: 4.4 cm2 Doppler Measurements & Calculations MV E max jesus: MV P1/2t max jesus: Ao V2 max: LV V1 max P.8 cm/sec 131.8 cm/sec 111.7 cm/sec 3.3 mmHg MV P1/2t: 52.8 msec Ao max PG: LV V1 max: MVA(P1/2t): 4.2 cm2 5.0 mmHg 90.3 cm/sec MV dec slope: TORI(V,D): 3.5 cm2 731.1 cm/sec2 PA V2 max: TR max jesus: 79.5 cm/sec 312.5 cm/sec PA max P.5 mmHgTR max P.1 mmHg Left Ventricle The left ventricle is normal in size. There is normal left ventricular wall thickness. Left ventricular systolic function is normal. LV EF is 65%. LV diastolic function could not be adequately assessed due to atrial fibrilation. The left ventricular wall motion is normal. Right Ventricle The right ventricular apex is not well visualized. Atria The right atrium is normal. The left atrium is mildly dilated. Mitral Valve There is mild mitral annular calcification. There is no evidence of mitral valve prolapse. There is no vegetation seen on the mitral valve. There is no mitral valve stenosis. There is a trace amount of mitral regurgitation. Aortic Valve There is no aortic valvular vegetation. There is no aortic valve stenosis. There is no LVOT obstruction. No aortic regurgitation is present. Tricuspid Valve There is no tricuspid stenosis. There is a moderate amount of tricuspid regurgitation. There is moderate pulmonary hypertension by echo. RVSP is 49 mm of Hg , with RA mean of 10. Pulmonic Valve There is no pulmonic valvular stenosis. There is no pulmonic valvular regurgitation. Great Vessels The aortic root is normal size. Effusions There is no pericardial effusion. : PETRONA ERICKSON > Petrona Erickson
--- NOTE | 2017-06-20 20:37 | PDOC PROGRESS REPORT ---
Subjective Progress Note for:: 06/20/17 Subjective:: Patient was admitted over the weekend when he presented with abdominal pain, acute COPD exacerbation. CAT scan of the chest without contrast was done it showed stable areas of subsegmental atelectasis/scarring involving the right middle lobe lingula and bilateral lower lobes he also add CT scan of the abdomen and pelvis showed hematoma in the abdominal wall. He was seen on the floor, audibly wheezing, history of atrial flutter status post ablation, developed A. fib with rapid ventricular response. Reason For Visit: ATRIAL FRIBRILLATION WITH RAPID VENTRICULAR RESPON Physical Exam Vital Signs: Temp Pulse Resp BP Pulse Ox 98.6 F 106 H 18 130/91 H 99 06/20/17 16:10 06/20/17 18:00 06/20/17 16:52 06/20/17 18:00 06/20/17 16:52 Intake & Output 06/19/17 06/20/17 06/21/17 06:59 06:59 06:59 Intake Total 2138 300 1348 Output Total 850 200 450 Balance 1288 100 898 Weight 83.3 kg 96.7 kg General appearance: PRESENT: mild distress Eye exam: PRESENT: PERRLA Ear exam: PRESENT: normal external ear exam Mouth exam: PRESENT: moist, tongue midline Neck exam: PRESENT: full ROM Respiratory exam: PRESENT: wheezes Cardiovascular exam: PRESENT: RRR, +S1, +S2 Vascular exam: PRESENT: normal capillary refill GI/Abdominal exam: PRESENT: normal bowel sounds, soft, other - Abdominal wall bruises/hematoma on the left lower quadrant Rectal exam: PRESENT: deferred Neurological exam: PRESENT: alert, CN II-XII grossly intact Psychiatric exam: PRESENT: anxious Skin exam: PRESENT: dry, intact, warm Results Laboratory Results: 06/20/17 03:47 06/20/17 17:24 06/19/17 06/20/17 06/20/17 20:00 03:47 03:47 WBC 11.6 H 10.6 H RBC 3.52 L 3.46 L Hgb 11.3 L 11.3 L Hct 34.2 L 33.5 L MCV 97 97 MCH 32.1 32.7 MCHC 33.1 33.8 RDW 14.1 H 14.3 H Plt Count 150 145 L Seg Neutrophils % Not Reportable Lymphocytes % Not Reportable Monocytes % Not Reportable Eosinophils % Not Reportable Basophils % Not Reportable Absolute Neutrophils Not Reportable Absolute Lymphocytes Not Reportable Absolute Monocytes Not Reportable Absolute Eosinophils Not Reportable Absolute Basophils Not Reportable Carbonic Acid HCO3/H2CO3 Ratio ABG pH ABG pCO2 ABG pO2 ABG HCO3 ABG O2 Saturation ABG Base Excess FiO2 Sodium 128.5 L Potassium 5.6 H D Chloride 94 L Carbon Dioxide 19 L Anion Gap 16 BUN 28 H Creatinine 1.54 H Est GFR ( Amer) 53 L Est GFR (Non-Af Amer) 44 L Glucose 176 H Serum Osmolality Calcium 9.1 Total Bilirubin AST ALT Alkaline Phosphatase Total Protein Albumin 06/20/17 06/20/17 06/20/17 03:55 17:24 17:24 WBC RBC Hgb Hct MCV MCH MCHC RDW Plt Count Seg Neutrophils % Lymphocytes % Monocytes % Eosinophils % Basophils % Absolute Neutrophils Absolute Lymphocytes Absolute Monocytes Absolute Eosinophils Absolute Basophils Carbonic Acid 1.06 HCO3/H2CO3 Ratio 18:1 ABG pH 7.36 ABG pCO2 35.3 ABG pO2 97.4 ABG HCO3 19.6 L ABG O2 Saturation 97.3 ABG Base Excess -5.1 FiO2 2L Sodium 125.2 L Potassium 5.5 H Chloride 90 L Carbon Dioxide 22 Anion Gap 13 BUN 41 H Creatinine 1.97 H Est GFR ( Amer) 40 L Est GFR (Non-Af Amer) 33 L Glucose 168 H Serum Osmolality 277 Calcium 9.1 Total Bilirubin 0.4 AST 100 H ALT 37 Alkaline Phosphatase 56 Total Protein 7.1 Albumin 4.2 06/18/17 17:45 Clean Catch Midstream Urine Culture - Final NO GROWTH 2 DAYS 06/18/17 06/18/17 06/18/17 13:50 13:50 19:15 Creatine Kinase 392 H 466 H CK-MB (CK-2) 1.32 Troponin I < 0.012 NT-Pro-B Natriuret Pep 06/18/17 06/19/17 06/19/17 19:15 01:07 01:07 Creatine Kinase 661 H CK-MB (CK-2) 1.82 2.92 Troponin I < 0.012 < 0.012 NT-Pro-B Natriuret Pep 06/19/17 05:55 Creatine Kinase CK-MB (CK-2) Troponin I NT-Pro-B Natriuret Pep 1510 H Impressions: Chest CT 06/18/17 00:00 IMPRESSION: NO ACUTE INTRATHORACIC PROCESS. NO SIGNIFICANT CHANGE FROM PRIOR STUDY. Abdomen/Pelvis CT 06/19/17 00:00 IMPRESSION: Hematomas in the abdominal wall on the left. Assessment & Plan - Diagnosis (1) Acute exacerbation of chronic obstructive airways disease Is this a current diagnosis for this admission?: Yes Plan: Patient still actively wheezing, presently on intravenous Solu-Medrol, bronchodilators, Will continue Solu-Medrol 80 mg IV every 6 hours, continue IV antibiotic, continue Xopenex every 4 on his schedule (2) Atrial fibrillation with rapid ventricular response Is this a current diagnosis for this admission?: Yes Plan: Continue intravenous Cardizem infusion, heart rate still elevated (3) Hematoma of abdominal wall Qualifiers: Encounter type: subsequent encounter Qualified Code(s): S30.1XXD - Contusion of abdominal wall, subsequent encounter Is this a current diagnosis for this admission?: Yes (4) History of deep vein thrombosis Is this a current diagnosis for this admission?: Yes Plan: History of deep vein thrombosis, he has bilateral leg swelling ,order venous doppler of the lower extremity
--- NOTE | 2017-06-20 20:54 | PDOC PROGRESS REPORT ---
Subjective Progress Note for:: 06/20/17 Subjective:: I saw patient earlier today, the nurse called to advise me that patient is delirious, putting on IV lines acting appropriately. The blood work that was done today showed hyponatremia but the serum osmolality was normal suggesting that this is pseudohyponatremia, the kidney function has been worsening since admission, because of his COPD cannot be given any lorazepam, the ABG done this morning suggest normal oxygen level. Reason For Visit: ATRIAL FRIBRILLATION WITH RAPID VENTRICULAR RESPON Physical Exam Vital Signs: Temp Pulse Resp BP Pulse Ox 98.6 F 106 H 18 130/91 H 99 06/20/17 16:10 06/20/17 18:00 06/20/17 16:52 06/20/17 18:00 06/20/17 16:52 Intake & Output 06/19/17 06/20/17 06/21/17 06:59 06:59 06:59 Intake Total 2138 300 1348 Output Total 850 200 450 Balance 1288 100 898 Weight 83.3 kg 96.7 kg Results Laboratory Results: 06/20/17 03:47 06/20/17 17:24 06/19/17 06/20/17 06/20/17 20:00 03:47 03:47 WBC 11.6 H 10.6 H RBC 3.52 L 3.46 L Hgb 11.3 L 11.3 L Hct 34.2 L 33.5 L MCV 97 97 MCH 32.1 32.7 MCHC 33.1 33.8 RDW 14.1 H 14.3 H Plt Count 150 145 L Seg Neutrophils % Not Reportable Lymphocytes % Not Reportable Monocytes % Not Reportable Eosinophils % Not Reportable Basophils % Not Reportable Absolute Neutrophils Not Reportable Absolute Lymphocytes Not Reportable Absolute Monocytes Not Reportable Absolute Eosinophils Not Reportable Absolute Basophils Not Reportable Carbonic Acid HCO3/H2CO3 Ratio ABG pH ABG pCO2 ABG pO2 ABG HCO3 ABG O2 Saturation ABG Base Excess FiO2 Sodium 128.5 L Potassium 5.6 H D Chloride 94 L Carbon Dioxide 19 L Anion Gap 16 BUN 28 H Creatinine 1.54 H Est GFR ( Amer) 53 L Est GFR (Non-Af Amer) 44 L Glucose 176 H Serum Osmolality Calcium 9.1 Total Bilirubin AST ALT Alkaline Phosphatase Total Protein Albumin 06/20/17 06/20/17 06/20/17 03:55 17:24 17:24 WBC RBC Hgb Hct MCV MCH MCHC RDW Plt Count Seg Neutrophils % Lymphocytes % Monocytes % Eosinophils % Basophils % Absolute Neutrophils Absolute Lymphocytes Absolute Monocytes Absolute Eosinophils Absolute Basophils Carbonic Acid 1.06 HCO3/H2CO3 Ratio 18:1 ABG pH 7.36 ABG pCO2 35.3 ABG pO2 97.4 ABG HCO3 19.6 L ABG O2 Saturation 97.3 ABG Base Excess -5.1 FiO2 2L Sodium 125.2 L Potassium 5.5 H Chloride 90 L Carbon Dioxide 22 Anion Gap 13 BUN 41 H Creatinine 1.97 H Est GFR ( Amer) 40 L Est GFR (Non-Af Amer) 33 L Glucose 168 H Serum Osmolality 277 Calcium 9.1 Total Bilirubin 0.4 AST 100 H ALT 37 Alkaline Phosphatase 56 Total Protein 7.1 Albumin 4.2 06/18/17 17:45 Clean Catch Midstream Urine Culture - Final NO GROWTH 2 DAYS 06/18/17 06/18/17 06/18/17 13:50 13:50 19:15 Creatine Kinase 392 H 466 H CK-MB (CK-2) 1.32 Troponin I < 0.012 NT-Pro-B Natriuret Pep 06/18/17 06/19/17 06/19/17 19:15 01:07 01:07 Creatine Kinase 661 H CK-MB (CK-2) 1.82 2.92 Troponin I < 0.012 < 0.012 NT-Pro-B Natriuret Pep 06/19/17 05:55 Creatine Kinase CK-MB (CK-2) Troponin I NT-Pro-B Natriuret Pep 1510 H Impressions: Chest CT 06/18/17 00:00 IMPRESSION: NO ACUTE INTRATHORACIC PROCESS. NO SIGNIFICANT CHANGE FROM PRIOR STUDY. Abdomen/Pelvis CT 06/19/17 00:00 IMPRESSION: Hematomas in the abdominal wall on the left. Assessment & Plan - Diagnosis (1) Acute exacerbation of chronic obstructive airways disease Is this a current diagnosis for this admission?: Yes (2) Atrial fibrillation with rapid ventricular response Is this a current diagnosis for this admission?: Yes (3) Hematoma of abdominal wall Qualifiers: Encounter type: subsequent encounter Qualified Code(s): S30.1XXD - Contusion of abdominal wall, subsequent encounter Is this a current diagnosis for this admission?: Yes (4) History of deep vein thrombosis Is this a current diagnosis for this admission?: Yes (5) Acute kidney injury Is this a current diagnosis for this admission?: Yes Plan: Kidney ultrasound is ordered to determine kidney size and to rule out post kidney obstruction (6) Hyponatremia Is this a current diagnosis for this admission?: Yes Plan: Patient have normal serum osmolality suggesting pseudohyponatremia (7) Delirium Is this a current diagnosis for this admission?: Yes Plan: This is most likely from medication, patient will be treated with Haldol as needed, will discontinue azithromycin because of drug interaction with haldol
[2017-06-20] MEDS: HALOPERIDOL LACTATE INJ 5 MG/1 ML VIAL IV PRN (21:17)
--- NOTE | 2017-06-20 23:49 | RADIOLOGY REPORT (SQ) ---
EXAM DESCRIPTION: [employer] COMPLETED DATE/TIME: 06/20/2017 10:04 pm REASON FOR STUDY: acute kidney injury COMPARISON: CT abdomen and pelvis 06/19/2017. Renal ultrasound 05/25/2011. TECHNIQUE: Grayscale images acquired of the kidneys and recorded on PACS. Additional selected color Doppler images recorded. LIMITATIONS: None. FINDINGS: RIGHT KIDNEY: Measure 9.2 cm in length. Normal echogenicity. No hydronephrosis. No calcifications. LEFT KIDNEY: Measure 8.9 cm in length. Normal echogenicity. No hydronephrosis. No calcificat ions. IMPRESSION: No hydronephrosis. TECHNICAL DOCUMENTATION: JOB ID: [id number] 2010 [employer]- All Rights Reserved
[2017-06-21] MEDS: IPRATROPIUM BROMIDE 0.02% NEB 0.5 MG/2.5 ML AMPUL NEB SCH ×6 (00:13→20:35)
[2017-06-21] MEDS: LEVALBUTEROL HCL NEB 1.25 MG/3 ML AMPUL NEB SCH ×6 (00:13→20:35)
[2017-06-21] MEDS: DILTIAZEM HCL/D5W 125 MG/125 ML RTUINJ IV PRN ×2 (03:53→17:33)
[2017-06-21 05:10] LABS: ABSOLUTE LYMPHOCYTES (AUTO) 0.5 10^3/uL (0.5-4.7); ABSOLUTE MONOCYTES (AUTO) 0.6 10^3/uL (0.1-1.4); ABSOLUTE NEUT (AUTO) 9.4 10^3/uL (1.7-8.2); BASOPHILS % (AUTO) 0.1 % (0-2); HEMATOCRIT 30.3 % (37.9-51.0); HEMOGLOBIN 10.2 g/dL (13.5-17.0); LYMPHOCYTES % (AUTO) 5.1 % (13-45); MEAN CORPUSCULAR HEMOGLOBIN 32.6 pg (27.0-33.4); MEAN CORPUSCULAR HGB CONC 33.7 g/dL (32.0-36.0); MEAN CORPUSCULAR VOLUME 97 fl (80-97); MONOCYTES % (AUTO) 5.4 % (3-13); PLATELET COUNT 150 10^3/uL (150-450); RED BLOOD COUNT 3.14 10^6/uL (4.35-5.55); RED CELL DISTRIBUTION WIDTH 14.1 % (11.5-14.0); SEGMENTED NEUTROPHILS % (AUTO) 89.4 % (42-78); TOTAL CELLS COUNTED % (AUTO) 100 %; WHITE BLOOD COUNT 10.5 10^3/uL (4.0-10.5)
[2017-06-21 05:34] LABS: ANION GAP 14 (5-19); BLOOD UREA NITROGEN 46 mg/dL (7-20); CARBON DIOXIDE 21 mmol/L (22-30); CHLORIDE 89 mmol/L (98-107); GLUCOSE 134 mg/dL (75-110); POTASSIUM 5.9 mmol/L (3.6-5.0); SODIUM 124.3 mmol/L (137-145)
[2017-06-21] MEDS ORDERED: INSULIN REG, HUMAN 100 UNIT/ML 3 ML VIAL (PYX) IV ONE (06:15)
[2017-06-21] MEDS ORDERED: DEXTROSE 50%-WATER 25 GM/50 ML DISP.SYRIN IV ONE (06:15)
[2017-06-21] MEDS: SODIUM POLYSTYRENE SULFONATE 15 GM/60 ML PO SCH ×3 (06:35→13:15)
[2017-06-21] MEDS: METHYLPREDNISOLONE INJ 125 MG/2 ML SDV IV SCH ×4 (06:35→23:51)
[2017-06-21] MEDS: DOCUSATE SODIUM 100 MG CAPSULE PO SCH ×2 (09:16→17:27)
[2017-06-21] MEDS: GUAIFENESIN 600 MG TABLET.SA PO SCH ×2 (09:16→21:15)
[2017-06-21] MEDS: FAMOTIDINE INJ/PF 20 MG/2 ML SDV IV SCH ×2 (09:16→21:15)
[2017-06-21] MEDS: APIXABAN 5 MG TABLET PO SCH ×2 (09:17→17:33)
[2017-06-21] MEDS: CEFTRIAXONE SODIUM 1,000 MG in DEXTROSE 5%-WATER 50 ML IV SCH (09:17)
--- NOTE | 2017-06-21 14:23 | XCELERA REPORT ---
[address] [address] Lower Extremity Venous Evaluation Name: FABIENNE HURLEY Age: 81 yrs Gender: Male : 1935 Patient Status: Inpatient Patient Location: [address] [place], [place] [address] Study Date: 06/21/2017 10:25 AM Procedure: Color flow and duplex imaging bilaterally of the veins of the lower extremities as well as the Common Femoral veins. Reason For Study: lower extremity swelling Ordering Physician: MARCIAL CUBA Performed By: Daya Garcia Right Sided Venous Evaluation Chronic , partially patent opacification in the Popliteal lumen. Otherwise normal vessel filling wall to wall, compression and augmentation as well as Colour flow down to the infrageniculate veins. Left Sided Venous Evaluation Normal vessel filling wall to wall, compression and augmentation as well as Colour flow down to the infrageniculate veins. 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 : MARCIAL CUBA > Froylan Good
[2017-06-21] MEDS: HALOPERIDOL LACTATE INJ 5 MG/1 ML VIAL IV PRN ×2 (14:34→23:52)
[2017-06-21] MEDS: NORMAL SALINE 1000 ML 1,000 ML IV PRN (17:34)
[2017-06-21 18:37] LABS: ANION GAP 13 (5-19); BLOOD UREA NITROGEN 47 mg/dL (7-20); CALCIUM 8.8 mg/dL (8.4-10.2); CARBON DIOXIDE 23 mmol/L (22-30); CHLORIDE 91 mmol/L (98-107); GLUCOSE 144 mg/dL (75-110); POTASSIUM 4.9 mmol/L (3.6-5.0); SODIUM 126.5 mmol/L (137-145)
--- NOTE | 2017-06-21 20:46 | PDOC PROGRESS REPORT ---
Subjective Progress Note for:: 06/21/17 Subjective:: Patient continues to wheeze, very loudly, he has post thrombotic syndrome of lower extremities, hyperkalemia corrected Reason For Visit: ATRIAL FRIBRILLATION WITH RAPID VENTRICULAR RESPON Physical Exam Vital Signs: Temp Pulse Resp BP Pulse Ox 98.5 F 92 19 133/72 H 100 06/21/17 19:00 06/21/17 20:37 06/21/17 20:37 06/21/17 19:00 06/21/17 20:37 Intake & Output 06/20/17 06/21/17 06/22/17 06:59 06:59 06:59 Intake Total 300 2666 1302 Output Total 200 1050 675 Balance 100 1616 627 Weight 96.7 kg 97.6 kg General appearance: PRESENT: mild distress Eye exam: PRESENT: PERRLA Respiratory exam: PRESENT: wheezes Cardiovascular exam: PRESENT: +S1, +S2 GI/Abdominal exam: PRESENT: soft Neurological exam: PRESENT: alert Results Laboratory Results: 06/21/17 04:27 06/21/17 17:37 06/21/17 06/21/17 06/21/17 03:06 04:27 04:27 WBC 10.5 RBC 3.14 L Hgb 10.2 L Hct 30.3 L MCV 97 MCH 32.6 MCHC 33.7 RDW 14.1 H Plt Count 150 Seg Neutrophils % 89.4 H Lymphocytes % 5.1 L Monocytes % 5.4 Eosinophils % 0.0 Basophils % 0.1 Absolute Neutrophils 9.4 H Absolute Lymphocytes 0.5 Absolute Monocytes 0.6 Absolute Eosinophils 0.0 Absolute Basophils 0.0 Sodium 124.3 L Potassium 5.9 H Chloride 89 L Carbon Dioxide 21 L Anion Gap 14 BUN 46 H Creatinine 1.90 H Est GFR ( Amer) 41 L Est GFR (Non-Af Amer) 34 L Glucose 134 H Calcium 9.0 Urine Osmolality 239 L 06/21/17 06/21/17 17:37 17:37 WBC RBC Hgb Hct MCV MCH MCHC RDW Plt Count Seg Neutrophils % Lymphocytes % Monocytes % Eosinophils % Basophils % Absolute Neutrophils Absolute Lymphocytes Absolute Monocytes Absolute Eosinophils Absolute Basophils Sodium 126.5 L Potassium 5.0 4.9 Chloride 91 L Carbon Dioxide 23 Anion Gap 13 BUN 47 H Creatinine 1.64 H Est GFR ( Amer) 49 L Est GFR (Non-Af Amer) 41 L Glucose 144 H Calcium 8.8 Urine Osmolality 06/18/17 19:00 Sputum Gram Stain - Final 06/18/17 19:00 Sputum Sputum Culture - Final Enterobacter Aerogenes Reduced Normal Che 06/18/17 06/18/17 06/18/17 13:50 13:50 19:15 Creatine Kinase 392 H 466 H CK-MB (CK-2) 1.32 Troponin I < 0.012 NT-Pro-B Natriuret Pep 06/18/17 06/19/17 06/19/17 19:15 01:07 01:07 Creatine Kinase 661 H CK-MB (CK-2) 1.82 2.92 Troponin I < 0.012 < 0.012 NT-Pro-B Natriuret Pep 06/19/17 05:55 Creatine Kinase CK-MB (CK-2) Troponin I NT-Pro-B Natriuret Pep 1510 H Impressions: Chest CT 06/18/17 00:00 IMPRESSION: NO ACUTE INTRATHORACIC PROCESS. NO SIGNIFICANT CHANGE FROM PRIOR STUDY. Abdomen/Pelvis CT 06/19/17 00:00 IMPRESSION: Hematomas in the abdominal wall on the left. Renal Ultrasound 06/20/17 00:00 IMPRESSION: No hydronephrosis. Assessment & Plan - Diagnosis (1) Acute exacerbation of chronic obstructive airways disease Is this a current diagnosis for this admission?: Yes Plan: Continue IV Solu-Medrol (2) Atrial fibrillation with rapid ventricular response Is this a current diagnosis for this admission?: Yes (3) Hematoma of abdominal wall Qualifiers: Encounter type: subsequent encounter Qualified Code(s): S30.1XXD - Contusion of abdominal wall, subsequent encounter Is this a current diagnosis for this admission?: Yes (4) History of deep vein thrombosis Is this a current diagnosis for this admission?: Yes (5) Acute kidney injury Is this a current diagnosis for this admission?: Yes (6) Hyponatremia Is this a current diagnosis for this admission?: Yes (7) Delirium Is this a current diagnosis for this admission?: Yes (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 Is this a current diagnosis for this admission?: Yes Plan: Apply compression stockings
[2017-06-21] MEDS: ACETAMINOPHEN 325 MG TABLET PO PRN (21:15)
[2017-06-21] MEDS: GUAIFENESIN SYRP 200 MG/10 ML UDC PO PRN (21:15)
[2017-06-22] MEDS: LEVALBUTEROL HCL NEB 1.25 MG/3 ML AMPUL NEB SCH ×6 (00:29→20:55)
[2017-06-22] MEDS: IPRATROPIUM BROMIDE 0.02% NEB 0.5 MG/2.5 ML AMPUL NEB SCH ×6 (00:29→20:55)
[2017-06-22] MEDS: METHYLPREDNISOLONE INJ 125 MG/2 ML SDV IV SCH ×3 (05:50→17:28)
[2017-06-22] MEDS: HALOPERIDOL LACTATE INJ 5 MG/1 ML VIAL IV PRN ×2 (05:50→22:59)
[2017-06-22] MEDS: DOCUSATE SODIUM 100 MG CAPSULE PO SCH ×2 (09:35→17:25)
[2017-06-22] MEDS: FAMOTIDINE INJ/PF 20 MG/2 ML SDV IV SCH ×2 (09:38→22:59)
[2017-06-22] MEDS: GUAIFENESIN 600 MG TABLET.SA PO SCH ×2 (09:38→22:59)
[2017-06-22] MEDS: APIXABAN 5 MG TABLET PO SCH ×2 (09:38→17:28)
[2017-06-22] MEDS: CEFTRIAXONE SODIUM 1,000 MG in DEXTROSE 5%-WATER 50 ML IV SCH (09:47)
[2017-06-22] MEDS: DILTIAZEM HCL/D5W 125 MG/125 ML RTUINJ IV PRN (09:47)
[2017-06-22] MEDS: NORMAL SALINE 1000 ML 1,000 ML IV PRN (13:50)
[2017-06-22 15:05] LABS: ANION GAP 14 (5-19); BLOOD UREA NITROGEN 33 mg/dL (7-20); CALCIUM 9.2 mg/dL (8.4-10.2); CARBON DIOXIDE 25 mmol/L (22-30); CHLORIDE 96 mmol/L (98-107); GLUCOSE 172 mg/dL (75-110); POTASSIUM 4.5 mmol/L (3.6-5.0)
--- NOTE | 2017-06-22 20:11 | PDOC CONSULTATION ---
Consultation Consult Date: 06/21/17 Attending physician:: MARCIAL CUBA Consult reason:: Shortness of breath History of Present Illness Admission Date/PCP: 06/18/17 13:02 MARCIAL CUBA MD Patient complains of: Shortness of breath History of Present Illness: FABIENNE HURLEY is a 81 year old male c/o left abdominal pains x 2weeks. He is having bouts of coughing for past [address] scan of abdomen which showed an intramuscular 10x9x8 cm hematomaleft rectus muscle contained. Pt on Eliquis which was just stopped after the CT scan today. This history was reviewed and confirmed. When patient seen he was noted to be confused. He is noted to be in atrial fibrillation on Cardizem drip. Heart rate is well controlled. Patient was noted to have significant wheezing and mild respiratory distress. Past Medical History Cardiac Medical History: Reports: Hypertension - since 2004?, Peripheral Vascular Disease Denies: Atrial Fibrillation, Congestive Heart Failure, Coronary Artery Disease, Myocardial Infarction, Hyperlipidema, Pulmonary Embolism, Heart Murmur Pulmonary Medical History: Reports: Chronic Obstructive Pulmonary Disease (COPD) , Pneumonia - 2010 Denies: Asthma, Bronchitis, Respiratory Failure, Sleep Apnea, Tuberculosis Neurological Medical History: Denies: Seizures Malignancy Medical History: Denies: Lung Cancer Musculoskeltal Medical History: Reports: Arthritis - arms,rt ankle,hands Hematology: Denies: Anemia Past Surgical History Past Surgical History: Denies: Pacemaker Social History Information Source: [facility] Records Smoking Status: Never Smoker Frequency of Alcohol Use: None Hx Recreational Drug Use: No Drugs: None Hx Prescription Drug Abuse: No - Advance Directive Resuscitation Status: Full Code Surrogate healthcare decision maker:: This is not available Family History Family History: None Parental Family History Reviewed: Yes Children Family History Reviewed: Yes Sibling(s) Family History Reviewed.: Yes Medication/Allergy Home Medications: Furosemide [Lasix 40 mg Tablet] 40 mg PO QAM 06/18/17 Tramadol HCl [Ultram 50 mg Tablet] 50 mg PO Q6HP PRN 06/18/17 Valsartan [Diovan 160 mg Tablet] 160 mg PO DAILY 06/18/17 Allergies/Adverse Reactions: No Known Allergies Allergy (Verified 07/13/16 09:09) Review of Systems Review of Systems: Patient noted to be confused. However on direct questioning denied any chest pain. He denied shortness of breath but was noted to be actively wheezing. Physical Exam Vital Signs: Temp Pulse Resp BP Pulse Ox 98.5 F 84 18 133/72 H 97 06/21/17 19:00 06/21/17 19:00 06/21/17 19:00 06/21/17 19:00 06/21/17 19:00 Intake & Output 06/20/17 06/21/17 06/22/17 06:59 06:59 06:59 Intake Total 300 2666 1302 Output Total 200 1050 675 Balance 100 1616 627 Weight 96.7 kg 97.6 kg Exam: GENERAL: well-nourished and in no acute distress. Patient is alert but not oriented to place time or person. HEAD: Atraumatic, normocephalic. EYES: Pupils equal round and reactive to light, extraocular movements intact, sclera anicteric, conjunctiva are normal. ENT: TMs normal, nares patent, oropharynx clear without exudates. Moist mucous membranes. No oral ulcerations or bleeding gums noted NECK: supple without lymphadenopathy or JVD. Trachea is central. No cervical or axillary lymphadenopathy noted. Carotids are 2+ LUNGS: Breath sounds bibasilar fine crackles at bases. Bilateral wheezing noted. No dullness noted.. CHEST: Palpation of chest wall shows no significant chest wall tenderness. HEART: [place] [employer], No PSH, 2/6 RA aortic area, 1/6 amador systolic murmur mitral area, rubs or gallops. ABDOMEN: Soft, no significant tenderness appreciated, normoactive bowel sounds. No guarding, no rebound. No rigidity noted . No masses appreciated. EXTREMITIES: Pedal pulses are 1-2+, no calf tenderness noted, 1-2+ + pedal edema noted. No clubbing or cyanosis. NEUROLOGICAL: Patient is alert but is not able to participate in neurological exam because of patient's current mental status PSYCH: Patient cannot participate in a neurologic and psych exam because of the patient's current mental status SKIN: Chronic dermatitis changes noted. 1-2+ edema noted.. MUSCULOSKELETAL EXAM: No significant joint swelling noted. Patient not able to cooperate in musculoskeletal exam. Results Laboratory Results: 06/21/17 04:27 06/21/17 17:37 06/21/17 06/21/1718 03:06 04:27 04:27 WBC 10.5 RBC 3.14 L Hgb 10.2 L Hct 30.3 L MCV 97 MCH 32.6 MCHC 33.7 RDW 14.1 H Plt Count 150 Seg Neutrophils % 89.4 H Lymphocytes % 5.1 L Monocytes % 5.4 Eosinophils % 0.0 Basophils % 0.1 Absolute Neutrophils 9.4 H Absolute Lymphocytes 0.5 Absolute Monocytes 0.6 Absolute Eosinophils 0.0 Absolute Basophils 0.0 Sodium 124.3 L Potassium 5.9 H Chloride 89 L Carbon Dioxide 21 L Anion Gap 14 BUN 46 H Creatinine 1.90 H Est GFR ( Amer) 41 L Est GFR (Non-Af Amer) 34 L Glucose 134 H Calcium 9.0 Urine Osmolality 239 L 06/21/17 06/21/17 17:37 17:37 WBC RBC Hgb Hct MCV MCH MCHC RDW Plt Count Seg Neutrophils % Lymphocytes % Monocytes % Eosinophils % Basophils % Absolute Neutrophils Absolute Lymphocytes Absolute Monocytes Absolute Eosinophils Absolute Basophils Sodium 126.5 L Potassium 5.0 4.9 Chloride 91 L Carbon Dioxide 23 Anion Gap 13 BUN 47 H Creatinine 1.64 H Est GFR ( Amer) 49 L Est GFR (Non-Af Amer) 41 L Glucose 144 H Calcium 8.8 Urine Osmolality 06/18/17 19:00 Sputum Gram Stain - Final 06/18/17 19:00 Sputum Sputum Culture - Final Enterobacter Aerogenes Reduced Normal Che 06/18/17 06/18/17 06/18/17 13:50 13:50 19:15 Creatine Kinase 392 H 466 H CK-MB (CK-2) 1.32 Troponin I < 0.012 NT-Pro-B Natriuret Pep 06/18/17 06/19/17 06/19/17 19:15 01:07 01:07 Creatine Kinase 661 H CK-MB (CK-2) 1.82 2.92 Troponin I < 0.012 < 0.012 NT-Pro-B Natriuret Pep 06/19/17 05:55 Creatine Kinase CK-MB (CK-2) Troponin I NT-Pro-B Natriuret Pep 1510 H EKG Comments: Atrial fibrillation with controlled ventricular response Impressions: Chest CT 06/18/17 00:00 IMPRESSION: NO ACUTE INTRATHORACIC PROCESS. NO SIGNIFICANT CHANGE FROM PRIOR STUDY. Abdomen/Pelvis CT 06/19/17 00:00 IMPRESSION: Hematomas in the abdominal wall on the left. Renal Ultrasound 06/20/17 00:00 IMPRESSION: No hydronephrosis. Assessment & Plan - Diagnosis (1) Acute exacerbation of chronic obstructive airways disease Is this a current diagnosis for this admission?: Yes (3) Delirium Is this a current diagnosis for this admission?: Yes (4) Hematoma of abdominal wall Is this a current diagnosis for this admission?: Yes (5) Post-thrombotic syndrome of left lower extremity Is this a current diagnosis for this admission?: Yes - Notes Notes: At this point, main problem seems to be atrial fibrillation with rapid ventricular response but heart rate response has been now controlled on Cardizem drip. Recommend switching to p.o. Cardizem. Exacerbation of COPD: Agree with aggressive treatment. Hematoma of the abdominal wall: Agree with holding chronic anticoagulation at this point. Postphlebitic syndrome: Agree with scheduling a venous duplex. Patient will benefit from resuming anticoagulation once stable. - Time Time Spent: 30 to 50 Minutes - CODE STATUS was discussed, patient remains full code. Patient does not want to identify a surrogate decision-maker at this time. He is also noted to be somewhat confused. Multiple medical problems were addressed. More than 50% of the time spent coordinating care, discussing management plans with involved caregivers. Management plans discussed with involved personnels. Medical decision making was of moderate to high complexity , patient's has multiple comorbidities. Medications reviewed and adjusted accordingly: Yes
--- NOTE | 2017-06-22 20:14 | PDOC PROGRESS REPORT ---
Subjective Progress Note for:: 06/22/17 Subjective:: Patient seems to be doing somewhat better and is showing some improvement in general status. Patient is not noted to have any chest arm or neck discomfort. Patient not noted to have or describing any PND, orthopnea.. Patient not noted to have fever chills. Patient does not seem to be in any other significant discomfort. Patient is maintaining atrial fibrillation with controlled ventricular response. System review: No significant changes Medications reviewed. Reason For Visit: ATRIAL FRIBRILLATION WITH RAPID VENTRICULAR RESPON Physical Exam Vital Signs: Temp Pulse Resp BP Pulse Ox 98.0 F 92 25 H 122/82 98 06/22/17 16:02 06/22/17 18:00 06/22/17 16:10 06/22/17 18:00 06/22/17 16:10 Intake & Output 06/21/17 06/22/17 06/23/17 06:59 06:59 06:59 Intake Total 2666 2538 2043 Output Total 1050 1775 750 Balance 8779 877 1141 Weight 97.6 kg 94.5 kg Exam: GENERAL: well-nourished and in no acute distress. Patient is alert but not oriented to place time or person. HEAD: Atraumatic, normocephalic. EYES: Pupils equal round and reactive to light, extraocular movements intact, sclera anicteric, conjunctiva are normal. ENT: TMs normal, nares patent, oropharynx clear without exudates. Moist mucous membranes. No oral ulcerations or bleeding gums noted NECK: supple without lymphadenopathy or JVD. Trachea is central. No cervical or axillary lymphadenopathy noted. Carotids are 2+ LUNGS: Breath sounds bibasilar fine crackles at bases. No significant dullness noted. CHEST: Palpation of chest wall shows no significant chest wall tenderness. 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 ABDOMEN: Soft, no significant tenderness appreciated, normoactive bowel sounds. No guarding, no rebound. No rigidity noted . No masses appreciated. EXTREMITIES: Pedal pulses are 1-2+, no calf tenderness noted, 1-2 + pedal edema noted. No clubbing or cyanosis. NEUROLOGICAL: Patient is alert but is not able to participate in neurological exam because of patient's current mental status PSYCH: Patient cannot participate in a neurologic and psych exam because of the patient's current mental status SKIN: Chronic dermatitis changes noted both lower extremity without signs of pruritus noted. MUSCULOSKELETAL EXAM: No significant joint swelling noted. Results Laboratory Results: 06/21/17 04:27 06/22/17 14:05 06/22/17 14:05 Sodium 135.0 L Potassium 4.5 Chloride 96 L Carbon Dioxide 25 Anion Gap 14 BUN 33 H Creatinine 1.25 Est GFR ( Amer) > 60 Est GFR (Non-Af Amer) 55 L Glucose 172 H Calcium 9.2 06/18/17 06/18/17 06/18/17 13:50 13:50 19:15 Creatine Kinase 392 H 466 H CK-MB (CK-2) 1.32 Troponin I < 0.012 NT-Pro-B Natriuret Pep 06/18/17 06/19/17 06/19/17 19:15 01:07 01:07 Creatine Kinase 661 H CK-MB (CK-2) 1.82 2.92 Troponin I < 0.012 < 0.012 NT-Pro-B Natriuret Pep 06/19/17 05:55 Creatine Kinase CK-MB (CK-2) Troponin I NT-Pro-B Natriuret Pep 1510 H EKG Comments: Shows atrial fibrillation with controlled ventricular response. Impressions: Chest CT 06/18/17 00:00 IMPRESSION: NO ACUTE INTRATHORACIC PROCESS. NO SIGNIFICANT CHANGE FROM PRIOR STUDY. Abdomen/Pelvis CT 06/19/17 00:00 IMPRESSION: Hematomas in the abdominal wall on the left. Renal Ultrasound 06/20/17 00:00 IMPRESSION: No hydronephrosis. 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 Heart rate remains well controlled. I see chronic anticoagulation has been resumed. Patient remains somewhat confused. At this point continue with current management plans. Will continue to follow patient. - Time Time with patient: 15-25 minutes - CODE STATUS was discussed, patient remains full code. Surrogate decision-maker unchanged. Multiple medical problems were addressed. More than 50% of the time spent coordinating care, discussing management plans with involved caregivers. Management plans discussed with involved personnels. Medical decision making was of moderate to high complexity , patient's has multiple comorbidities. Medications reviewed and adjusted accordingly: Yes
[2017-06-22] MEDS: BUDESONIDE NEB 0.5 MG/2 ML AMPUL NEB SCH (20:55)
--- NOTE | 2017-06-22 21:01 | PDOC PROGRESS REPORT ---
Subjective Progress Note for:: 06/22/17 Subjective:: Patient was seen by the bedside, he seems like he has stridor with a background of wheezing but overall it seems that he is improving, will change Solu-Medrol to Decadron which is a better choice when there is involvement of upper airway inflammation Reason For Visit: ATRIAL FRIBRILLATION WITH RAPID VENTRICULAR RESPON Physical Exam Vital Signs: Temp Pulse Resp BP Pulse Ox 97.3 F 129 H 24 H 105/46 L 100 06/22/17 19:48 06/22/17 19:48 06/22/17 19:48 06/22/17 19:48 06/22/17 19:48 Intake & Output 06/21/17 06/22/17 06/23/17 06:59 06:59 06:59 Intake Total 2666 2538 2043 Output Total 1050 1775 750 Balance 1651 943 8557 Weight 97.6 kg 94.5 kg General appearance: PRESENT: severe distress Eye exam: PRESENT: PERRLA Respiratory exam: PRESENT: stridor, wheezes Cardiovascular exam: PRESENT: +S1, +S2 Neurological exam: PRESENT: alert Results Laboratory Results: 06/21/17 04:27 06/22/17 14:05 06/22/17 14:05 Sodium 135.0 L Potassium 4.5 Chloride 96 L Carbon Dioxide 25 Anion Gap 14 BUN 33 H Creatinine 1.25 Est GFR ( Amer) > 60 Est GFR (Non-Af Amer) 55 L Glucose 172 H Calcium 9.2 06/18/17 06/18/17 06/18/17 13:50 13:50 19:15 Creatine Kinase 392 H 466 H CK-MB (CK-2) 1.32 Troponin I < 0.012 NT-Pro-B Natriuret Pep 06/18/17 06/19/17 06/19/17 19:15 01:07 01:07 Creatine Kinase 661 H CK-MB (CK-2) 1.82 2.92 Troponin I < 0.012 < 0.012 NT-Pro-B Natriuret Pep 06/19/17 05:55 Creatine Kinase CK-MB (CK-2) Troponin I NT-Pro-B Natriuret Pep 1510 H Impressions: Chest CT 06/18/17 00:00 IMPRESSION: NO ACUTE INTRATHORACIC PROCESS. NO SIGNIFICANT CHANGE FROM PRIOR STUDY. Abdomen/Pelvis CT 06/19/17 00:00 IMPRESSION: Hematomas in the abdominal wall on the left. Renal Ultrasound 06/20/17 00:00 IMPRESSION: No hydronephrosis. Assessment & Plan - Diagnosis (1) Acute exacerbation of chronic obstructive airways disease Is this a current diagnosis for this admission?: Yes (2) Atrial fibrillation with rapid ventricular response Is this a current diagnosis for this admission?: Yes (3) Hematoma of abdominal wall Qualifiers: Encounter type: subsequent encounter Qualified Code(s): S30.1XXD - Contusion of abdominal wall, subsequent encounter Is this a current diagnosis for this admission?: Yes (4) History of deep vein thrombosis Is this a current diagnosis for this admission?: Yes (5) Acute kidney injury Is this a current diagnosis for this admission?: Yes (6) Hyponatremia Is this a current diagnosis for this admission?: Yes (7) Delirium Is this a current diagnosis for this admission?: Yes (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 Is this a current diagnosis for this admission?: Yes (9) Stridor Is this a current diagnosis for this admission?: Yes Plan: Start Decadron
[2017-06-22] MEDS: DEXAMETHASONE SOD PHOSPHATE INJ 4 MG/1 ML VIAL IV SCH (22:59)
[2017-06-23] MEDS: LEVALBUTEROL HCL NEB 1.25 MG/3 ML AMPUL NEB SCH ×6 (00:22→20:13)
[2017-06-23] MEDS: IPRATROPIUM BROMIDE 0.02% NEB 0.5 MG/2.5 ML AMPUL NEB SCH ×6 (00:23→20:13)
[2017-06-23] MEDS: DILTIAZEM HCL/D5W 125 MG/125 ML RTUINJ IV PRN ×2 (01:22→17:14)
[2017-06-23] MEDS: DEXAMETHASONE SOD PHOSPHATE INJ 4 MG/1 ML VIAL IV SCH ×3 (05:24→21:18)
[2017-06-23] MEDS: NORMAL SALINE 1000 ML 1,000 ML IV PRN ×2 (05:24→21:18)
[2017-06-23] MEDS: BUDESONIDE NEB 0.5 MG/2 ML AMPUL NEB SCH ×2 (08:13→20:13)
[2017-06-23] MEDS: GUAIFENESIN 600 MG TABLET.SA PO SCH ×2 (10:25→21:18)
[2017-06-23] MEDS: CEFTRIAXONE SODIUM 1,000 MG in DEXTROSE 5%-WATER 50 ML IV SCH (10:25)
[2017-06-23] MEDS: DOCUSATE SODIUM 100 MG CAPSULE PO SCH ×2 (10:25→17:17)
[2017-06-23] MEDS: FAMOTIDINE INJ/PF 20 MG/2 ML SDV IV SCH ×2 (10:26→21:18)
[2017-06-23] MEDS: APIXABAN 5 MG TABLET PO SCH ×2 (10:26→17:17)
[2017-06-23] MEDS: HALOPERIDOL LACTATE INJ 5 MG/1 ML VIAL IV PRN ×2 (14:46→21:18)
--- NOTE | 2017-06-23 22:35 | PDOC PROGRESS REPORT ---
Subjective Progress Note for:: 06/23/17 Subjective:: Patient continues to wheeze, presently on IV Decadron, yesterday the Solu- Medrol was discontinued and he was started on IV Decadron partly because stridor was suspected Reason For Visit: ATRIAL FRIBRILLATION WITH RAPID VENTRICULAR RESPON Physical Exam Vital Signs: Temp Pulse Resp BP Pulse Ox 97.6 F 118 H 23 H 126/97 H 98 06/23/17 19:23 06/23/17 20:13 06/23/17 20:13 06/23/17 19:23 06/23/17 20:13 Intake & Output 06/22/17 06/23/17 06/24/17 06:59 06:59 06:59 Intake Total 2538 3035 2336 Output Total 1775 1810 1495 Balance 763 1225 841 Weight 94.5 kg 96.6 kg General appearance: PRESENT: mild distress Head exam: PRESENT: atraumatic, normocephalic Eye exam: ABSENT: scleral icterus Ear exam: PRESENT: normal external ear exam Mouth exam: PRESENT: moist, tongue midline Neck exam: PRESENT: full ROM Respiratory exam: PRESENT: wheezes Cardiovascular exam: PRESENT: RRR, +S1, +S2 Pulses: PRESENT: normal dorsalis pedis pul, +2 pedal pulses bilateral Vascular exam: PRESENT: normal capillary refill GI/Abdominal exam: PRESENT: normal bowel sounds, soft Rectal exam: PRESENT: deferred Neurological exam: PRESENT: alert, awake, oriented to person, oriented to place , oriented to time, oriented to situation, CN II-XII grossly intact. ABSENT: motor sensory deficit Psychiatric exam: PRESENT: appropriate affect, normal mood. ABSENT: homicidal ideation, suicidal ideation Skin exam: PRESENT: dry, intact, warm. ABSENT: cyanosis, rash Results Laboratory Results: 06/21/17 04:27 06/22/17 14:05 06/18/17 13:50 Blood Blood Culture - Final NO GROWTH IN 5 DAYS 06/18/17 06/18/17 06/18/17 13:50 13:50 19:15 Creatine Kinase 392 H 466 H CK-MB (CK-2) 1.32 Troponin I < 0.012 NT-Pro-B Natriuret Pep 06/18/17 06/19/17 06/19/17 19:15 01:07 01:07 Creatine Kinase 661 H CK-MB (CK-2) 1.82 2.92 Troponin I < 0.012 < 0.012 NT-Pro-B Natriuret Pep 06/19/17 05:55 Creatine Kinase CK-MB (CK-2) Troponin I NT-Pro-B Natriuret Pep 1510 H Impressions: Chest CT 06/18/17 00:00 IMPRESSION: NO ACUTE INTRATHORACIC PROCESS. NO SIGNIFICANT CHANGE FROM PRIOR STUDY. Abdomen/Pelvis CT 06/19/17 00:00 IMPRESSION: Hematomas in the abdominal wall on the left. Renal Ultrasound 06/20/17 00:00 IMPRESSION: No hydronephrosis. Assessment & Plan - Diagnosis (1) Acute exacerbation of chronic obstructive airways disease Is this a current diagnosis for this admission?: Yes (2) Atrial fibrillation with rapid ventricular response Is this a current diagnosis for this admission?: Yes (3) Hematoma of abdominal wall Qualifiers: Encounter type: subsequent encounter Qualified Code(s): S30.1XXD - Contusion of abdominal wall, subsequent encounter Is this a current diagnosis for this admission?: Yes (4) History of deep vein thrombosis Is this a current diagnosis for this admission?: Yes (5) Acute kidney injury Is this a current diagnosis for this admission?: Yes (6) Hyponatremia Is this a current diagnosis for this admission?: Yes (7) Delirium Is this a current diagnosis for this admission?: Yes (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 Is this a current diagnosis for this admission?: Yes (9) Stridor Is this a current diagnosis for this admission?: Yes - Plan Summary Plan Summary: Continue IV Decadron, bronchodilators
[2017-06-24] MEDS: IPRATROPIUM BROMIDE 0.02% NEB 0.5 MG/2.5 ML AMPUL NEB SCH ×6 (00:08→20:23)
[2017-06-24] MEDS: LEVALBUTEROL HCL NEB 1.25 MG/3 ML AMPUL NEB SCH ×6 (00:08→20:23)
--- NOTE | 2017-06-24 00:36 | RADIOLOGY REPORT (SQ) ---
EXAM DESCRIPTION: CT ABDOMEN AND PELVIS WITHOUT CONTRAST CLINICAL HISTORY: abdominal pain left rectus sheath hematomas. COMPARISON: 06/19/2017 TECHNIQUE: CT of the abdomen and pelvis without IV contrast. FINDINGS: Abdomen: The liver has normal size and density. No calcified gallstones. The spleen, pancreas, and adrenal glands are unremarkable. The kidneys have normal size and contour without evidence of hydronephrosis. No obstructing ureteral calculi. Aortoiliac atherosclerosis. 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 There is also aneurysmal dilatation of the internal iliac arteries measuring 1.8 cm on the left and 1.7 cm on the right. No free intraperitoneal air. The stomach and duodenum have normal course. Hematoma identified in the left rectus sheath or decreased in size from the previous study, the largest now measuring 8.7 x 2.7 x 6.5 cm. Pelvis: Prostate is not enlarged. Urinary bladder is unremarkable. No free pelvic fluid or lymphadenopathy. Scattered diverticula of the sigmoid colon. No dilated loops of large or small bowel. Normal appendix. The visualized lung bases show a left basilar likely atelectasis.. Degenerative spondylosis throughout the visualized thoracic and lumbar spine. DLP: 787.26 mGy-cm IMPRESSION: 1. Redemonstrated left rectus sheath hematomas which are decreased in size. 2. Diverticulosis without evidence diverticulitis. 3. 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 Follow-up imaging in 12 months recommended for continued surveillance. This exam was performed according to our departmental dose-optimization program, which includes automated exposure control, adjustment of the mA and/or kV according to patient size and/or use of iterative reconstruction technique.
[2017-06-24] MEDS: HALOPERIDOL LACTATE INJ 5 MG/1 ML VIAL IV PRN (01:46)
[2017-06-24] MEDS: DEXAMETHASONE SOD PHOSPHATE INJ 4 MG/1 ML VIAL IV SCH ×3 (06:12→22:12)
[2017-06-24] MEDS: BUDESONIDE NEB 0.5 MG/2 ML AMPUL NEB SCH ×2 (08:48→20:22)
[2017-06-24] MEDS: APIXABAN 5 MG TABLET PO SCH ×2 (09:29→17:39)
[2017-06-24] MEDS: CEFTRIAXONE SODIUM 1,000 MG in DEXTROSE 5%-WATER 50 ML IV SCH (09:29)
[2017-06-24] MEDS: GUAIFENESIN 600 MG TABLET.SA PO SCH (09:29)
[2017-06-24] MEDS: FAMOTIDINE INJ/PF 20 MG/2 ML SDV IV SCH ×2 (09:29→22:14)
[2017-06-24] MEDS: DOCUSATE SODIUM 100 MG CAPSULE PO SCH ×2 (09:29→17:39)
[2017-06-24] MEDS: DILTIAZEM HCL/D5W 125 MG/125 ML RTUINJ IV PRN (09:47)
[2017-06-24 09:56] LABS: HEMATOCRIT 30.6 % (37.9-51.0); HEMOGLOBIN 10.4 g/dL (13.5-17.0); MEAN CORPUSCULAR HEMOGLOBIN 32.5 pg (27.0-33.4); MEAN CORPUSCULAR VOLUME 96 fl (80-97); PLATELET COUNT 209 10^3/uL (150-450); RED BLOOD COUNT 3.21 10^6/uL (4.35-5.55); RED CELL DISTRIBUTION WIDTH 14.1 % (11.5-14.0); WHITE BLOOD COUNT 11.5 10^3/uL (4.0-10.5)
[2017-06-24 10:24] LABS: ALANINE AMINOTRANSFERASE 67 U/L (21-72); ALBUMIN 3.9 g/dL (3.5-5.0); ALKALINE PHOSPHATASE 50 U/L (38-126); ANION GAP 10 (5-19); ASPARTATE AMINO TRANSFERASE 84 U/L (17-59); BILIRUBIN,DIRECT 0.3 mg/dL (0.0-0.4); BILIRUBIN,TOTAL 0.8 mg/dL (0.2-1.3); BLOOD UREA NITROGEN 23 mg/dL (7-20); CALCIUM 9.2 mg/dL (8.4-10.2); CARBON DIOXIDE 26 mmol/L (22-30); CHLORIDE 100 mmol/L (98-107); GLUCOSE 191 mg/dL (75-110); POTASSIUM 4.8 mmol/L (3.6-5.0); SODIUM 136.2 mmol/L (137-145); TOTAL PROTEIN 6.8 g/dL (6.3-8.2)
[2017-06-24 10:33] LABS: ABSOLUTE LYMPHOCYTES# (MANUAL) 0.7 10^3/uL (0.5-4.7); ABSOLUTE MONOCYTES # (MANUAL) 0.5 10^3/uL (0.1-1.4); ABSOLUTE NEUTROPHILS# (MANUAL) 10.4 10^3/uL (1.7-8.2); BASOPHILS % (MANUAL) 0 % (0-2); EOSINOPHILS % (MANUAL) 0 % (0-6); HYPERSEGMENTED NEUTROPHILS PRESENT; HYPOCHROMASIA SLIGHT; LYMPHOCYTES % (MANUAL) 6 % (13-45); MONOCYTES % (MANUAL) 4 % (3-13); OVALOCYTES 1+; PLATELET COMMENT ADEQUATE; POIKILOCYTOSIS 1+; POLYCHROMASIA SLIGHT; SEGMENTED NEUTROPHILS % (MAN) 90 % (42-78); TOTAL CELLS COUNTED 100; TOXIC GRANULATION 1+; TOXIC VACUOLATION PRESENT
--- NOTE | 2017-06-24 11:33 | PDOC PROGRESS REPORT ---
Subjective Progress Note for:: 06/24/17 Subjective:: Patient seems to be doing somewhat better and is showing improvement in general status. Today alert and oriented X3 Patient is not noted to have any chest arm or neck discomfort. Patient not noted to have or describing any PND, orthopnea.. Patient not noted to have fever chills. Patient does not seem to be in any other significant discomfort. Patient is maintaining atrial fibrillation with controlled ventricular response. System review: No significant changes Medications reviewed. Reason For Visit: ATRIAL FRIBRILLATION WITH RAPID VENTRICULAR RESPON Physical Exam Vital Signs: Temp Pulse Resp BP Pulse Ox 97.8 F 120 H 24 H 155/97 H 96 06/24/17 03:38 06/24/17 08:48 06/24/17 08:48 06/24/17 06:00 06/24/17 08:48 Intake & Output 06/23/17 06/24/17 06/25/17 06:59 06:59 06:59 Intake Total 3035 5642 Output Total 1810 3935 Balance 1225 1707 Weight 96.6 kg 88.3 kg Exam: GENERAL: well-nourished and in no acute distress. Alert and oriented x3 HEAD: Atraumatic, normocephalic. EYES: Pupils equal round and reactive to light, extraocular movements intact, sclera anicteric, conjunctiva are normal. ENT: TMs normal, nares patent, oropharynx clear without exudates. Moist mucous membranes. No oral ulcerations or bleeding gums noted NECK: supple without lymphadenopathy. Trachea is central. No cervical or axillary lymphadenopathy noted. Carotids are 2+, JVD WNL LUNGS: Respiration seems nonlabored, no significant accessory muscle action noted. Bilateral wheezing and bibasilar fine crackles noted. These are somewhat improved since yesterday. CHEST: Palpation of the chest wall shows no significant chest wall tenderness. No other significant abnormalities noted. 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 ABDOMEN: Soft, no significant tenderness appreciated, normoactive bowel sounds. No guarding, no rebound. No rigidity noted . No masses appreciated. EXTREMITIES: Pedal pulses are 1-2+, no calf tenderness noted. No clubbing or cyanosis. Chronic 2+ + pedal edema noted NEUROLOGICAL: Focused neurological exam showed no significant neurologic deficit. Normal speech, no focal weakness appreciated. PSYCH: Normal mood, normal affect. Judgment and insight within normal limits. SKIN: Chronic dermatitis changes noted both lower extremity left more than right. Left lower extremity has a bandage on. MUSCULOSKELETAL EXAM: No significant joint swelling noted. Results Laboratory Results: 06/24/17 09:43 06/24/17 09:43 06/24/17 06/24/17 09:43 09:43 WBC 11.5 H RBC 3.21 L Hgb 10.4 L Hct 30.6 L MCV 96 MCH 32.5 MCHC 34.0 RDW 14.1 H Plt Count 209 Seg Neutrophils % Not Reportable Lymphocytes % Not Reportable Monocytes % Not Reportable Eosinophils % Not Reportable Basophils % Not Reportable Absolute Neutrophils Not Reportable Absolute Lymphocytes Not Reportable Absolute Monocytes Not Reportable Absolute Eosinophils Not Reportable Absolute Basophils Not Reportable Sodium 136.2 L Potassium 4.8 Chloride 100 Carbon Dioxide 26 Anion Gap 10 BUN 23 H Creatinine 0.91 Est GFR ( Amer) > 60 Est GFR (Non-Af Amer) > 60 Glucose 191 H Calcium 9.2 Total Bilirubin 0.8 AST 84 H ALT 67 Alkaline Phosphatase 50 Total Protein 6.8 Albumin 3.9 06/18/17 13:50 Blood Blood Culture - Final NO GROWTH IN 5 DAYS 06/18/17 06/18/17 06/18/17 13:50 13:50 19:15 Creatine Kinase 392 H 466 H CK-MB (CK-2) 1.32 Troponin I < 0.012 NT-Pro-B Natriuret Pep 06/18/17 06/19/17 06/19/17 19:15 01:07 01:07 Creatine Kinase 661 H CK-MB (CK-2) 1.82 2.92 Troponin I < 0.012 < 0.012 NT-Pro-B Natriuret Pep 06/19/17 05:55 Creatine Kinase CK-MB (CK-2) Troponin I NT-Pro-B Natriuret Pep 1510 H EKG Comments: Telemetry strips shows atrial fibrillation with rapid ventricular response. Impressions: Chest CT 06/18/17 00:00 IMPRESSION: NO ACUTE INTRATHORACIC PROCESS. NO SIGNIFICANT CHANGE FROM PRIOR STUDY. Abdomen/Pelvis CT 06/19/17 00:00 IMPRESSION: Hematomas in the abdominal wall on the left. Renal Ultrasound 06/20/17 00:00 IMPRESSION: No hydronephrosis. Limited or Localized CT 06/23/17 23:34 IMPRESSION: 1. Redemonstrated left rectus sheath hematomas which are decreased in size. 2. Diverticulosis without evidence diverticulitis. 3. 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 Follow-up imaging in 12 months recommended for continued surveillance. This exam was performed according to our departmental dose-optimization program, which includes automated exposure control, adjustment of the mA and/or kV according to patient size and/or use of iterative reconstruction technique. Assessment & Plan - Diagnosis (1) Acute exacerbation of chronic obstructive airways disease Is this a current diagnosis for this admission?: Yes (3) Delirium Is this a current diagnosis for this admission?: Yes (4) Hematoma of abdominal wall Is this a current diagnosis for this admission?: Yes (5) Post-thrombotic syndrome of left lower extremity Is this a current diagnosis for this admission?: Yes - Notes Notes: HR some what elevated. Increase diltiazem. Diltiazem increased to 120 mg p.o. twice daily controlled release. Otherwise patient stable. Patient to continue with bronchodilator therapy and other supportive management as ordered by Dr. Payne. - Time Time with patient: 15-25 minutes - More than 50% of the time spent coordinating care, discussing management plans with involved caregivers. Management plans discussed with involved personnels. Medical decision making was of moderate to high complexity, patient's has multiple comorbidities. Medications reviewed and adjusted accordingly: Yes
[2017-06-24 12:23] LABS: PATH REVIEW PATHOLOGIST REVIEWED
[2017-06-24] MEDS: ACETAMINOPHEN 325 MG TABLET PO PRN (13:06)
[2017-06-24] MEDS: HYDROCODONE/ACETAMINOPHEN 5-325 MG TABLET PO PRN (16:12)
--- NOTE | 2017-06-24 18:02 | Physician Advisory Note ---
Physician Advisor ProgressNote .: Pursuant to the plan for [facility], I have reviewed the medical record for this patient. Physician Advisor Statement: Nice documentation of TODD, hyponatremia. Please consider documenting, if you agree: 1. "Acute bronchitis" (or what is being tx'd with abx, since COPD exacerb.s don 't necessarily need abx unless bacterial infxn is suspected) 2. "Anemia of Acute Blood Loss Due to Bleeding into Abd wall (Hematoma) from __ __" [coughing, from COPD exac?] Thanks! CK
[2017-06-24] MEDS: DILTIAZEM HCL 120 MG CAP.SR.24H PO SCH (19:02)
--- NOTE | 2017-06-24 23:55 | PDOC PROGRESS REPORT ---
Subjective Progress Note for:: 06/24/17 Subjective:: Patient was seen by the bedside he had increased pain in the left lower quadrant of the abdomen a CAT scan of the abdomen and pelvis was done, it showed slight decreased in hematoma of the anterior abdominal wall, patient have less confusion and agitation. Reason For Visit: ATRIAL FRIBRILLATION WITH RAPID VENTRICULAR RESPON Physical Exam Vital Signs: Temp Pulse Resp BP Pulse Ox 98.0 F 116 H 23 H 150/90 H 96 06/24/17 18:27 06/24/17 20:23 06/24/17 20:23 06/24/17 18:00 06/24/17 20:23 Intake & Output 06/23/17 06/24/17 06/25/17 06:59 06:59 06:59 Intake Total 3035 5642 1554 Output Total 1810 3935 600 Balance 1225 1707 954 Weight 96.6 kg 88.3 kg General appearance: PRESENT: mild distress Head exam: PRESENT: atraumatic, normocephalic Eye exam: PRESENT: PERRLA Neck exam: PRESENT: full ROM Respiratory exam: PRESENT: rhonchi, wheezes Cardiovascular exam: PRESENT: RRR, +S1, +S2 Pulses: PRESENT: normal dorsalis pedis pul, +2 pedal pulses bilateral Vascular exam: PRESENT: normal capillary refill GI/Abdominal exam: PRESENT: normal bowel sounds, tenderness Rectal exam: PRESENT: deferred Neurological exam: PRESENT: alert, awake, oriented to person, oriented to place , oriented to time, oriented to situation, CN II-XII grossly intact Psychiatric exam: PRESENT: appropriate affect, normal mood Skin exam: PRESENT: dry, intact, warm. ABSENT: cyanosis, rash Results Laboratory Results: 06/24/17 09:43 06/24/17 09:43 06/24/17 06/24/17 09:43 09:43 WBC 11.5 H RBC 3.21 L Hgb 10.4 L Hct 30.6 L MCV 96 MCH 32.5 MCHC 34.0 RDW 14.1 H Plt Count 209 Seg Neutrophils % Not Reportable Lymphocytes % Not Reportable Monocytes % Not Reportable Eosinophils % Not Reportable Basophils % Not Reportable Absolute Neutrophils Not Reportable Absolute Lymphocytes Not Reportable Absolute Monocytes Not Reportable Absolute Eosinophils Not Reportable Absolute Basophils Not Reportable Sodium 136.2 L Potassium 4.8 Chloride 100 Carbon Dioxide 26 Anion Gap 10 BUN 23 H Creatinine 0.91 Est GFR ( Amer) > 60 Est GFR (Non-Af Amer) > 60 Glucose 191 H Calcium 9.2 Total Bilirubin 0.8 AST 84 H ALT 67 Alkaline Phosphatase 50 Total Protein 6.8 Albumin 3.9 06/18/17 06/18/17 06/18/17 13:50 13:50 19:15 Creatine Kinase 392 H 466 H CK-MB (CK-2) 1.32 Troponin I < 0.012 NT-Pro-B Natriuret Pep 06/18/17 06/19/17 06/19/17 19:15 01:07 01:07 Creatine Kinase 661 H CK-MB (CK-2) 1.82 2.92 Troponin I < 0.012 < 0.012 NT-Pro-B Natriuret Pep 06/19/17 05:55 Creatine Kinase CK-MB (CK-2) Troponin I NT-Pro-B Natriuret Pep 1510 H Impressions: Chest CT 06/18/17 00:00 IMPRESSION: NO ACUTE INTRATHORACIC PROCESS. NO SIGNIFICANT CHANGE FROM PRIOR STUDY. Abdomen/Pelvis CT 06/19/17 00:00 IMPRESSION: Hematomas in the abdominal wall on the left. Renal Ultrasound 06/20/17 00:00 IMPRESSION: No hydronephrosis. Limited or Localized CT 06/23/17 23:34 IMPRESSION: 1. Redemonstrated left rectus sheath hematomas which are decreased in size. 2. Diverticulosis without evidence diverticulitis. 3. 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 Follow-up imaging in 12 months recommended for continued surveillance. This exam was performed according to our departmental dose-optimization program, which includes automated exposure control, adjustment of the mA and/or kV according to patient size and/or use of iterative reconstruction technique. Assessment & Plan - Diagnosis (1) Acute exacerbation of chronic obstructive airways disease Is this a current diagnosis for this admission?: Yes (2) Atrial fibrillation with rapid ventricular response Is this a current diagnosis for this admission?: Yes (3) Hematoma of abdominal wall Qualifiers: Encounter type: subsequent encounter Qualified Code(s): S30.1XXD - Contusion of abdominal wall, subsequent encounter Is this a current diagnosis for this admission?: Yes (4) History of deep vein thrombosis Is this a current diagnosis for this admission?: Yes (5) Acute kidney injury Is this a current diagnosis for this admission?: Yes (6) Hyponatremia Is this a current diagnosis for this admission?: Yes (7) Delirium Is this a current diagnosis for this admission?: Yes (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 Is this a current diagnosis for this admission?: Yes (9) Stridor Is this a current diagnosis for this admission?: Yes
[2017-06-25] MEDS: LEVALBUTEROL HCL NEB 1.25 MG/3 ML AMPUL NEB SCH ×6 (00:18→20:28)
[2017-06-25] MEDS: IPRATROPIUM BROMIDE 0.02% NEB 0.5 MG/2.5 ML AMPUL NEB SCH ×6 (00:18→20:28)
[2017-06-25] MEDS: GUAIFENESIN 600 MG TABLET.SA PO SCH ×3 (01:58→21:40)
[2017-06-25] MEDS: DILTIAZEM HCL 120 MG CAP.SR.24H PO SCH (06:52)
[2017-06-25] MEDS: DEXAMETHASONE SOD PHOSPHATE INJ 4 MG/1 ML VIAL IV SCH ×3 (06:53→21:38)
[2017-06-25] MEDS: HYDROCODONE/ACETAMINOPHEN 5-325 MG TABLET PO PRN ×2 (07:04→21:40)
[2017-06-25] MEDS: BUDESONIDE NEB 0.5 MG/2 ML AMPUL NEB SCH ×2 (08:38→20:28)
[2017-06-25] MEDS: DOCUSATE SODIUM 100 MG CAPSULE PO SCH ×2 (09:13→17:12)
[2017-06-25] MEDS: APIXABAN 5 MG TABLET PO SCH ×2 (09:13→17:11)
[2017-06-25] MEDS: FAMOTIDINE INJ/PF 20 MG/2 ML SDV IV SCH ×2 (09:14→21:39)
[2017-06-25] MEDS: CEFTRIAXONE SODIUM 1,000 MG in DEXTROSE 5%-WATER 50 ML IV SCH (09:14)
[2017-06-25] MEDS: DILTIAZEM HCL/D5W 125 MG/125 ML RTUINJ IV PRN ×2 (12:42→20:10)
--- NOTE | 2017-06-25 13:55 | PDOC PROGRESS REPORT ---
Subjective Progress Note for:: 06/25/17 Subjective:: Patient is seen today, is still wheezing, less confusion Reason For Visit: ATRIAL FRIBRILLATION WITH RAPID VENTRICULAR RESPON Physical Exam Vital Signs: Temp Pulse Resp BP Pulse Ox 97.8 F 131 H 20 155/91 H 98 06/25/17 08:21 06/25/17 13:00 06/25/17 11:56 06/25/17 13:00 06/25/17 11:56 Intake & Output 06/24/17 06/25/17 06/26/17 06:59 06:59 06:59 Intake Total 5642 3306 Output Total 3935 1400 Balance 1707 1906 Weight 88.3 kg 87.8 kg General appearance: PRESENT: mild distress Eye exam: PRESENT: PERRLA Ear exam: PRESENT: normal external ear exam Mouth exam: PRESENT: moist, tongue midline Neck exam: PRESENT: full ROM Respiratory exam: PRESENT: clear to auscultation poonam Cardiovascular exam: PRESENT: RRR, +S1, +S2 Vascular exam: PRESENT: normal capillary refill GI/Abdominal exam: PRESENT: normal bowel sounds, soft Rectal exam: PRESENT: deferred Neurological exam: PRESENT: alert. ABSENT: motor sensory deficit Psychiatric exam: PRESENT: appropriate affect, normal mood Skin exam: PRESENT: dry, intact, warm. ABSENT: cyanosis, rash Results Laboratory Results: 06/24/17 09:43 06/24/17 09:43 06/18/17 06/18/17 06/18/17 13:50 13:50 19:15 Creatine Kinase 392 H 466 H CK-MB (CK-2) 1.32 Troponin I < 0.012 NT-Pro-B Natriuret Pep 06/18/17 06/19/17 06/19/17 19:15 01:07 01:07 Creatine Kinase 661 H CK-MB (CK-2) 1.82 2.92 Troponin I < 0.012 < 0.012 NT-Pro-B Natriuret Pep 06/19/17 05:55 Creatine Kinase CK-MB (CK-2) Troponin I NT-Pro-B Natriuret Pep 1510 H Impressions: Chest CT 06/18/17 00:00 IMPRESSION: NO ACUTE INTRATHORACIC PROCESS. NO SIGNIFICANT CHANGE FROM PRIOR STUDY. Abdomen/Pelvis CT 06/19/17 00:00 IMPRESSION: Hematomas in the abdominal wall on the left. Renal Ultrasound 06/20/17 00:00 IMPRESSION: No hydronephrosis. Limited or Localized CT 06/23/17 23:34 IMPRESSION: 1. Redemonstrated left rectus sheath hematomas which are decreased in size. 2. Diverticulosis without evidence diverticulitis. 3. 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 Follow-up imaging in 12 months recommended for continued surveillance. This exam was performed according to our departmental dose-optimization program, which includes automated exposure control, adjustment of the mA and/or kV according to patient size and/or use of iterative reconstruction technique. Assessment & Plan - Diagnosis (1) Acute exacerbation of chronic obstructive airways disease Is this a current diagnosis for this admission?: Yes (2) Atrial fibrillation with rapid ventricular response Is this a current diagnosis for this admission?: Yes (3) Hematoma of abdominal wall Qualifiers: Encounter type: subsequent encounter Qualified Code(s): S30.1XXD - Contusion of abdominal wall, subsequent encounter Is this a current diagnosis for this admission?: Yes (4) History of deep vein thrombosis Is this a current diagnosis for this admission?: Yes (5) Acute kidney injury Is this a current diagnosis for this admission?: Yes (6) Hyponatremia Is this a current diagnosis for this admission?: Yes (7) Delirium Is this a current diagnosis for this admission?: Yes (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 Is this a current diagnosis for this admission?: Yes (9) Stridor Is this a current diagnosis for this admission?: Yes - Plan Summary Plan Summary: Reduce the Decadron dose
[2017-06-25] MEDS: NORMAL SALINE 1000 ML 1,000 ML IV PRN (17:14)
--- NOTE | 2017-06-25 17:33 | PDOC PROGRESS REPORT ---
Subjective Progress Note for:: 06/23/17 Subjective:: Patient seems to be doing somewhat better and is showing some improvement in general status. Patient is not noted to have any chest arm or neck discomfort. Patient not noted to have or describing any PND, orthopnea.. Patient not noted to have fever chills. Patient does not seem to be in any other significant discomfort. Patient is maintaining atrial fibrillation with controlled ventricular response. System review: No significant changes Medications reviewed. Reason For Visit: ATRIAL FRIBRILLATION WITH RAPID VENTRICULAR RESPON Physical Exam Vital Signs: Temp Pulse Resp BP Pulse Ox 97.6 F 136 H 21 H 126/97 H 99 06/23/17 19:23 06/23/17 19:23 06/23/17 19:23 06/23/17 19:23 06/23/17 19:23 Intake & Output 06/22/17 06/23/17 06/24/17 06:59 06:59 06:59 Intake Total 2538 3035 2336 Output Total 1775 1810 1495 Balance 763 1225 841 Weight 94.5 kg 96.6 kg Exam: GENERAL: well-nourished and in no acute distress. Alert and oriented x3 HEAD: Atraumatic, normocephalic. EYES: Pupils equal round and reactive to light, extraocular movements intact, sclera anicteric, conjunctiva are normal. ENT: TMs normal, nares patent, oropharynx clear without exudates. Moist mucous membranes. No oral ulcerations or bleeding gums noted NECK: supple without lymphadenopathy. Trachea is central. No cervical or axillary lymphadenopathy noted. Carotids are 2+, JVD WNL LUNGS: Respiration seems nonlabored, no significant accessory muscle action noted. Bibasilar fine crackles also noted. Bilateral wheezes rales or rhonchi noted. No significant dullness noted on percussion. CHEST: Palpation of the chest wall shows no significant chest wall tenderness. No other significant abnormalities noted. HEART: [place] [employer], No PSH, 1/6 RA aortic area, 1/6 amador systolic murmur mitral area, no rubs, no gallops. ABDOMEN: Soft, no significant tenderness appreciated, normoactive bowel sounds. No guarding, no rebound. No rigidity noted . No masses appreciated. EXTREMITIES: Pedal pulses are 1-2+, no calf tenderness noted. No clubbing or cyanosis. 2+ + pedal edema noted NEUROLOGICAL: Focused neurological exam showed no significant neurologic deficit. Normal speech, no focal weakness appreciated. PSYCH: Normal mood, normal affect. Judgment and insight within normal limits. SKIN: Significant chronic dermatitis changes noted both lower extremity left more than right. MUSCULOSKELETAL EXAM: No significant joint swelling noted. Results Laboratory Results: 06/21/17 04:27 06/22/17 14:05 06/18/17 13:50 Blood Blood Culture - Final NO GROWTH IN 5 DAYS 06/18/17 06/18/17 06/18/17 13:50 13:50 19:15 Creatine Kinase 392 H 466 H CK-MB (CK-2) 1.32 Troponin I < 0.012 NT-Pro-B Natriuret Pep 06/18/17 06/19/17 06/19/17 19:15 01:07 01:07 Creatine Kinase 661 H CK-MB (CK-2) 1.82 2.92 Troponin I < 0.012 < 0.012 NT-Pro-B Natriuret Pep 06/19/17 05:55 Creatine Kinase CK-MB (CK-2) Troponin I NT-Pro-B Natriuret Pep 1510 H EKG Comments: Shows atrial fibrillation with somewhat of a rapid ventricular response. Impressions: Chest CT 06/18/17 00:00 IMPRESSION: NO ACUTE INTRATHORACIC PROCESS. NO SIGNIFICANT CHANGE FROM PRIOR STUDY. Abdomen/Pelvis CT 06/19/17 00:00 IMPRESSION: Hematomas in the abdominal wall on the left. Renal Ultrasound 06/20/17 00:00 IMPRESSION: No hydronephrosis. Assessment & Plan - Diagnosis (1) Acute exacerbation of chronic obstructive airways disease Is this a current diagnosis for this admission?: Yes (2) Atrial fibrillation with RVR Is this a current diagnosis for this admission?: Yes (3) Delirium Is this a current diagnosis for this admission?: Yes (4) Hematoma of abdominal wall Is this a current diagnosis for this admission?: Yes (5) Post-thrombotic syndrome of left lower extremity Is this a current diagnosis for this admission?: Yes - Notes Notes: Patient remains generally stable. He is more alert and oriented today. Have placed patient on p.o. Cardizem but continue on Cardizem drip for the time being. Will try gradually escalate dose of rate control agents. Continue with chronic anticoagulation. Patient remains with some chronic pedal edema. 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 Telemetry strips reviewed showed atrial fibrillation with somewhat of a rapid ventricular response. - Time Time with patient: 15-25 minutes - More than 50% of the time spent coordinating care, discussing management plans with involved caregivers. Management plans discussed with involved personnels. Medical decision making was of moderate to high complexity, patient's has multiple comorbidities. Medications reviewed and adjusted accordingly: Yes
--- NOTE | 2017-06-25 17:39 | PDOC PROGRESS REPORT ---
Subjective Progress Note for:: 06/25/17 Subjective:: Patient seems to be doing somewhat better and is showing improvement in general status. Today alert and oriented X3 Patient is not noted to have any chest arm or neck discomfort. Patient not noted to have or describing any PND, orthopnea.. Patient not noted to have fever chills. Patient does not seem to be in any other significant discomfort. Patient however is noted to have some wheezing. He is noted to be sitting at the bedside chair. Patient is maintaining atrial fibrillation with rapid ventricular response. System review: No significant changes Medications reviewed. Reason For Visit: ATRIAL FRIBRILLATION WITH RAPID VENTRICULAR RESPON Physical Exam Vital Signs: Temp Pulse Resp BP Pulse Ox 97.8 F 120 H 18 128/89 H 99 06/25/17 08:21 06/25/17 17:00 06/25/17 16:33 06/25/17 17:00 06/25/17 16:33 Intake & Output 06/24/17 06/25/17 06/26/17 06:59 06:59 06:59 Intake Total 5642 3306 1238 Output Total 3935 1400 Balance 1707 1906 1238 Weight 88.3 kg 87.8 kg Exam: GENERAL: well-nourished and in no acute distress. Alert and oriented x3 HEAD: Atraumatic, normocephalic. EYES: Pupils equal round and reactive to light, extraocular movements intact, sclera anicteric, conjunctiva are normal. ENT: TMs normal, nares patent, oropharynx clear without exudates. Moist mucous membranes. No oral ulcerations or bleeding gums noted NECK: supple without lymphadenopathy. Trachea is central. No cervical or axillary lymphadenopathy noted. Carotids are 2+, JVD WNL LUNGS: Respiration seems nonlabored, no significant accessory muscle action noted. Bilateral mild wheezing and bibasilar crackles noted. No significant dullness noted. CHEST: Palpation of the chest wall shows no significant chest wall tenderness. No other significant abnormalities noted. HEART: [place] DOFFER, No PSH, 1/6 RA aortic area, 1/6 amador systolic murmur mitral area, no rubs, no gallops. ABDOMEN: Soft, no significant tenderness appreciated, normoactive bowel sounds. No guarding, no rebound. No rigidity noted . No masses appreciated. EXTREMITIES: Pedal pulses are 1-2+, no calf tenderness noted. No clubbing or cyanosis. 2 + pedal edema noted NEUROLOGICAL: Focused neurological exam showed no significant neurologic deficit. Normal speech, no focal weakness appreciated. PSYCH: Normal mood, normal affect. Judgment and insight within normal limits. SKIN: Bilateral chronic dermatitis signs noted left more than right.. MUSCULOSKELETAL EXAM: No significant joint swelling noted. Results Laboratory Results: 06/24/17 09:43 06/24/17 09:43 06/18/17 06/18/17 06/18/17 13:50 13:50 19:15 Creatine Kinase 392 H 466 H CK-MB (CK-2) 1.32 Troponin I < 0.012 NT-Pro-B Natriuret Pep 06/18/17 06/19/17 06/19/17 19:15 01:07 01:07 Creatine Kinase 661 H CK-MB (CK-2) 1.82 2.92 Troponin I < 0.012 < 0.012 NT-Pro-B Natriuret Pep 06/19/17 05:55 Creatine Kinase CK-MB (CK-2) Troponin I NT-Pro-B Natriuret Pep 1510 H EKG Comments: Telemetry strips reviewed shows atrial fibrillation with somewhat rapid ventricular response. Impressions: Chest CT 06/18/17 00:00 IMPRESSION: NO ACUTE INTRATHORACIC PROCESS. NO SIGNIFICANT CHANGE FROM PRIOR STUDY. Abdomen/Pelvis CT 06/19/17 00:00 IMPRESSION: Hematomas in the abdominal wall on the left. Renal Ultrasound 06/20/17 00:00 IMPRESSION: No hydronephrosis. Limited or Localized CT 06/23/17 23:34 IMPRESSION: 1. Redemonstrated left rectus sheath hematomas which are decreased in size. 2. Diverticulosis without evidence diverticulitis. 3. 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 Follow-up imaging in 12 months recommended for continued surveillance. This exam was performed according to our departmental dose-optimization program, which includes automated exposure control, adjustment of the mA and/or kV according to patient size and/or use of iterative reconstruction technique. Assessment & Plan - Diagnosis (1) Acute exacerbation of chronic obstructive airways disease Is this a current diagnosis for this admission?: Yes (2) Atrial fibrillation with RVR Is this a current diagnosis for this admission?: Yes (3) Delirium Is this a current diagnosis for this admission?: Yes (4) Hematoma of abdominal wall Is this a current diagnosis for this admission?: Yes (5) Post-thrombotic syndrome of left lower extremity Is this a current diagnosis for this admission?: Yes - Notes Notes: Patient seems generally stable. Limited CT scan results reviewed showed improving abdominal wall hematoma. Have increased Cardizem dose to 180 mg controlled release twice daily. Continue on Cardizem drip and taper it down as her heart rate. Patient otherwise improving slowly. Other management plans per Dr. Payne. - Time Time with patient: 15-25 minutes - More than 50% of the time spent coordinating care, discussing management plans with involved caregivers. Management plans discussed with involved personnels. Medical decision making was of moderate to high complexity, patient's has multiple comorbidities. Medications reviewed and adjusted accordingly: Yes
[2017-06-25] MEDS ORDERED: DIGOXIN INJ 0.5 MG/2 ML AMPULE IV ONE (19:15)
[2017-06-25] MEDS: DRONEDARONE HYDROCHLORIDE 400 MG TABLET PO SCH (20:58)
[2017-06-25] MEDS: DILTIAZEM HCL 180 MG CAPSULE.CR PO SCH (21:40)
--- NOTE | 2017-06-25 23:09 | PROGRESS NOTE E ---
Progress Note NAME: FABIENNE HURLEY : 1935 AGE: 81Y DATE: 06/20/2017 ROOM: 334 SUBJECTIVE: The patient continues to wheeze and continues to be in atrial fibrillation. His heart rate is now 96 beats per minute. He still has some cough which is mainly dry but occasionally producing scanty white sputum. He denies any chest pain suggestive of angina but does have chest wall pain when he coughs. Also has abdominal pain when he coughs. He does have orthopnea but no PND. There are no ventricular arrhythmias seen. There are no TIA or CVA symptoms. OBJECTIVE: GENERAL: On examination, the patient is well built and well nourished in some distress due to respiratory difficulty although no accessory muscles of respirations are in use. VITAL SIGNS: He is afebrile with a temperature of 98.6 degrees Fahrenheit, pulse is 96 beats per minute, blood pressure 130/88, respirations are 20 per minute, 02 saturations are 99% on 2 L nasal cannula. HEENT: Head is atraumatic, normocephalic. Eyes: Pupils are equal, round, regular and reactive to light and accommodation. Extraocular movements are normal. There is no conjunctival pallor. There is no scleral icterus. Ears: Tympanic membranes are intact. External auditory canals are clear. Nose: There is no deviated nasal septum. The nares. There is no inflammation of the nasal mucous membrane. Mouth: Mucous membranes of the mouth are moist. Tongue is moist. There are no ulcers. There is no bleeding from the gums. Throat: There is no redness of the oropharynx. There are no exudates. SKIN: There are no skin rashes. There is no petechiae or ecchymoses. There is venous stasis dermatitis of the lower extremities. NECK: Supple. There is no JVD at present. Carotids are equal. There is no bruit. There is no lymphadenopathy. There is no goiter. Trachea is central. LUNGS: Show bilateral wheezing and few rhonchi. There is diminished air entry and prolonged expiration on auscultation and hyperresonance on percussion. There is also some chest wall tenderness in the front of the chest reproducing some of the symptoms which are exacerbated by the patient's cough. The patient's symptoms are not suggestive of angina. HEART: S1 and S2 are heard. There is a variable S1 in intensity. There is no S3 gallop. There is no S4 gallop. There is a systolic murmur in the left sternal border and the apex. There is no rub. ABDOMEN: Soft, obese with some tenderness to the left of the midline and a small hematoma there. There is no hepatosplenomegaly. Bowel sounds are well heard. There is no rebound, guarding, or rigidity. EXTREMITIES: Femorals are difficult to palpate. There are no femoral bruits. Leg pulses are not palpable due to chronic venous insufficiency/edema and venous stasis dermatitis changes. There is mild pedal edema bilaterally. There is no definite ulcer but there seems to be some healed scars of some ulcers in the lower left leg. There is no cyanosis or clubbing. CENTRAL NERVOUS SYSTEM: The patient is conscious, awake, alert, oriented x3 with no focal deficits. PSYCHIATRIC: The patient appears to be slightly anxious but his judgment and insight are intact. DIAGNOSTICS: Note, the patient's CT of the abdomen shows a hematoma to the left of the midline. The patient's left ventricular echocardiogram shows that the left ventricle is normal in size. There is normal left ventricular wall thickness. The LV ejection fraction is 65% with no wall motion abnormality. The left atrium is mildly dilated. There is no evidence of mitral valve prolapse. There is no vegetation seen on the mitral valve. There is no mitral valve stenosis. There is trace amount of mitral regurgitation. There is no aortic valve stenosis. There is no aortic regurgitation present. There is moderate amount of tricuspid regurgitation. The right ventricular systolic pressure is 49 mmHg with a RA mean of 10. Hence, there is moderate pulmonary hypertension. There is no pericardial effusion. Left ventricular diastolic function could not be assessed due to atrial fibrillation. Left ventricular wall motion is normal. There is no pericardial effusion. The patient's white count is 10,600; hemoglobin 7.3; hematocrit of 33.5; platelet count of 145,000. The patient's sodium is 125.2, potassium 5.5, chloride is 90, CO2 is 22. The patient's BUN is 41, creatinine is 1.97. GFR is reduced at 40 mL, which is chronic kidney disease stage III. The patient's calcium is 9.1. The patient's liver function tests are normal except for an elevated AST of 100. The patient's total protein is 7.1, albumin is 4.2. IMPRESSION: 1. ATRIAL FIBRILLATION WITH RAPID VENTRICULAR RESPONSE. Continue the patient on IV Cardizem. Note that the patient is on oral anticoagulation. Will be careful in view of the patient's hematoma. Will be very cautious and watch the patient carefully for expansion or increase in the hematoma. 2. [id number] OBSTRUCTIVE PULMONARY DISEASE WITH EXACERBATION WITH WHEEZING AND ASTHMATIC BRONCHITIS. 3. HISTORY OF ASTHMA. 4. HYPERTENSION. 5. MODERATE PULMONARY HYPERTENSION. 6. MOST LIKELY PATIENT HAS CHRONIC RIGHT-SIDED HEART FAILURE. 7. ARTHRITIS. 8. PERIPHERAL VASCULAR DISEASE WITH HISTORY OF STENTS. 9. DEPRESSION. 10. ABDOMINAL WALL HEMATOMA. RECOMMENDATIONS: Continue antibiotics. Continue steroids. Continue Cardizem. Continue anticoagulation but be careful and watch and make sure that the hematoma does not increase. Note, 30 minutes spent on this patient, more than 50% of the time spent on direct patient care. His medications have been reviewed and case discussed with the attending physician and other physicians on the case and formulated a management plan. Medical decision making is of high complexity. Dr. Chang will follow up from tomorrow. DICTATING PHYSICIAN: TROY ERICKSON M.D. [id number] PHY#: [id number] ID: [id number] JOB#: [id number] ACCT: [id number] cc: >
[2017-06-26] MEDS: IPRATROPIUM BROMIDE 0.02% NEB 0.5 MG/2.5 ML AMPUL NEB SCH ×6 (00:02→20:09)
[2017-06-26] MEDS: LEVALBUTEROL HCL NEB 1.25 MG/3 ML AMPUL NEB SCH ×6 (00:02→20:09)
[2017-06-26] MEDS: DEXAMETHASONE SOD PHOSPHATE INJ 4 MG/1 ML VIAL IV SCH ×3 (06:12→22:45)
[2017-06-26] MEDS: BUDESONIDE NEB 0.5 MG/2 ML AMPUL NEB SCH ×2 (08:43→20:09)
[2017-06-26] MEDS: GUAIFENESIN 600 MG TABLET.SA PO SCH ×2 (09:57→22:45)
[2017-06-26] MEDS: DOCUSATE SODIUM 100 MG CAPSULE PO SCH ×2 (09:58→17:23)
[2017-06-26] MEDS: DILTIAZEM HCL 180 MG CAPSULE.CR PO SCH ×2 (09:58→22:45)
[2017-06-26] MEDS: DRONEDARONE HYDROCHLORIDE 400 MG TABLET PO SCH (09:58)
[2017-06-26] MEDS: FAMOTIDINE INJ/PF 20 MG/2 ML SDV IV SCH ×2 (09:59→22:45)
[2017-06-26] MEDS: APIXABAN 5 MG TABLET PO SCH ×2 (09:59→17:23)
[2017-06-26] MEDS ORDERED: DILTIAZEM HCL INJ 25 MG/5 ML VIAL IV PRN (11:09)
[2017-06-26] MEDS ORDERED: METOPROLOL SUCCINATE 25 MG TAB.SR.24H PO ONE (12:00)
[2017-06-26] MEDS: NORMAL SALINE 1000 ML 1,000 ML IV PRN (13:37)
--- NOTE | 2017-06-26 15:47 | PDOC PROGRESS REPORT ---
Subjective Progress Note for:: 06/26/17 Subjective:: Patient seems to be doing somewhat better and is showing improvement in general status. Today alert and oriented X3 Patient is not noted to have any chest arm or neck discomfort. Patient not noted to have or describing any PND, orthopnea.. Patient not noted to have fever chills. Patient does not seem to be in any other significant discomfort. Patient however is noted to have some wheezing. He is noted to be sitting at the bedside chair. Patient is maintaining atrial fibrillation with intermittent rapid ventricular response. System review: No significant changes Medications reviewed. Reason For Visit: ATRIAL FRIBRILLATION WITH RAPID VENTRICULAR RESPON Physical Exam Vital Signs: Temp Pulse Resp BP Pulse Ox 97.8 F 89 18 135/87 H 96 06/26/17 11:50 06/26/17 14:00 06/26/17 12:07 06/26/17 11:00 06/26/17 12:07 Intake & Output 06/25/17 06/26/17 06/27/17 06:59 06:59 06:59 Intake Total 3306 5493 Output Total 1400 2600 Balance 1906 2893 Weight 87.8 kg Exam: GENERAL: well-nourished and in no acute distress. Alert and oriented x3 HEAD: Atraumatic, normocephalic. EYES: Pupils equal round and reactive to light, extraocular movements intact, sclera anicteric, conjunctiva are normal. ENT: TMs normal, nares patent, oropharynx clear without exudates. Moist mucous membranes. No oral ulcerations or bleeding gums noted NECK: supple without lymphadenopathy. Trachea is central. No cervical or axillary lymphadenopathy noted. Carotids are 2+, JVD WNL LUNGS: Respiration seems nonlabored, no significant accessory muscle action noted. Marked improvement in wheezing noted. Wheezes rales or rhonchi noted. No significant dullness noted on percussion. CHEST: Palpation of the chest wall shows no significant chest wall tenderness. No other significant abnormalities noted. 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 ABDOMEN: Soft, no significant tenderness appreciated, normoactive bowel sounds. No guarding, no rebound. No rigidity noted . No masses appreciated. EXTREMITIES: Pedal pulses are 1-2+, no calf tenderness noted. No clubbing or cyanosis. 2+ + pedal edema noted NEUROLOGICAL: Focused neurological exam showed no significant neurologic deficit. Normal speech, no focal weakness appreciated. PSYCH: Normal mood, normal affect. Judgment and insight within normal limits. SKIN: Chronic dermatitis changes noted both lower extremities. MUSCULOSKELETAL EXAM: No significant joint swelling noted. Results Laboratory Results: 06/24/17 09:43 06/24/17 09:43 06/18/17 06/18/17 06/18/17 13:50 13:50 19:15 Creatine Kinase 392 H 466 H CK-MB (CK-2) 1.32 Troponin I < 0.012 NT-Pro-B Natriuret Pep 06/18/17 06/19/17 06/19/17 19:15 01:07 01:07 Creatine Kinase 661 H CK-MB (CK-2) 1.82 2.92 Troponin I < 0.012 < 0.012 NT-Pro-B Natriuret Pep 06/19/17 05:55 Creatine Kinase CK-MB (CK-2) Troponin I NT-Pro-B Natriuret Pep 1510 H EKG Comments: Telemetry strips shows atrial fibrillation with intermittent rapid ventricular response. Impressions: Chest CT 06/18/17 00:00 IMPRESSION: NO ACUTE INTRATHORACIC PROCESS. NO SIGNIFICANT CHANGE FROM PRIOR STUDY. Abdomen/Pelvis CT 06/19/17 00:00 IMPRESSION: Hematomas in the abdominal wall on the left. Renal Ultrasound 06/20/17 00:00 IMPRESSION: No hydronephrosis. Limited or Localized CT 06/23/17 23:34 IMPRESSION: 1. Redemonstrated left rectus sheath hematomas which are decreased in size. 2. Diverticulosis without evidence diverticulitis. 3. 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 Follow-up imaging in 12 months recommended for continued surveillance. This exam was performed according to our departmental dose-optimization program, which includes automated exposure control, adjustment of the mA and/or kV according to patient size and/or use of iterative reconstruction technique. Assessment & Plan - Diagnosis (1) Acute exacerbation of chronic obstructive airways disease Is this a current diagnosis for this admission?: Yes (2) Atrial fibrillation with RVR Is this a current diagnosis for this admission?: Yes (3) Delirium Is this a current diagnosis for this admission?: Yes (4) Hematoma of abdominal wall Is this a current diagnosis for this admission?: Yes (5) Post-thrombotic syndrome of left lower extremity Is this a current diagnosis for this admission?: Yes - Notes Notes: Atrial fibrillation: Patient was noted to be free of significant wheezing therefore was started on metoprolol succinate 12.5 mg p.o. twice daily. Continue diltiazem CD at 180 mg p.o. twice daily. Patient did get a dose of digoxin yesterday and also multaq predominantly for rate control. Have stopped multaq. Acute exacerbation of COPD: This seems to be improving. Delirium improved Postphlebitic syndrome of both lower extremity stable Hematoma of the abdominal wall: Improving. - Time Time with patient: 15-25 minutes - CODE STATUS was discussed, patient remains full code. Multiple medical problems were addressed. More than 50% of the time spent coordinating care, discussing management plans with involved caregivers. Management plans discussed with involved personnels. Medical decision making was of moderate to high complexity, patient's has multiple comorbidities. Medications reviewed and adjusted accordingly: Yes
--- NOTE | 2017-06-26 17:32 | PDOC PROGRESS REPORT ---
Subjective Progress Note for:: 06/26/17 Subjective:: Patient was seen by the bedside, he is still wheezing Reason For Visit: ATRIAL FRIBRILLATION WITH RAPID VENTRICULAR RESPON Physical Exam Vital Signs: Temp Pulse Resp BP Pulse Ox 97.8 F 82 16 135/87 H 97 06/26/17 11:50 06/26/17 16:20 06/26/17 16:20 06/26/17 11:00 06/26/17 16:20 Intake & Output 06/25/17 06/26/17 06/27/17 06:59 06:59 06:59 Intake Total 3306 5493 1125 Output Total 1400 2600 Balance 1906 2893 1125 Weight 87.8 kg General appearance: PRESENT: mild distress Head exam: PRESENT: atraumatic, normocephalic Eye exam: PRESENT: PERRLA. ABSENT: scleral icterus Mouth exam: PRESENT: moist, tongue midline Neck exam: PRESENT: full ROM Respiratory exam: PRESENT: wheezes Cardiovascular exam: PRESENT: RRR, +S1, +S2 Vascular exam: PRESENT: normal capillary refill GI/Abdominal exam: PRESENT: normal bowel sounds, soft Rectal exam: PRESENT: deferred Neurological exam: PRESENT: alert Psychiatric exam: PRESENT: appropriate affect, normal mood Skin exam: PRESENT: dry, intact, warm Results Laboratory Results: 06/24/17 09:43 06/24/17 09:43 06/18/17 06/18/17 06/18/17 13:50 13:50 19:15 Creatine Kinase 392 H 466 H CK-MB (CK-2) 1.32 Troponin I < 0.012 NT-Pro-B Natriuret Pep 06/18/17 06/19/17 06/19/17 19:15 01:07 01:07 Creatine Kinase 661 H CK-MB (CK-2) 1.82 2.92 Troponin I < 0.012 < 0.012 NT-Pro-B Natriuret Pep 06/19/17 05:55 Creatine Kinase CK-MB (CK-2) Troponin I NT-Pro-B Natriuret Pep 1510 H Impressions: Chest CT 06/18/17 00:00 IMPRESSION: NO ACUTE INTRATHORACIC PROCESS. NO SIGNIFICANT CHANGE FROM PRIOR STUDY. Abdomen/Pelvis CT 06/19/17 00:00 IMPRESSION: Hematomas in the abdominal wall on the left. Renal Ultrasound 06/20/17 00:00 IMPRESSION: No hydronephrosis. Limited or Localized CT 06/23/17 23:34 IMPRESSION: 1. Redemonstrated left rectus sheath hematomas which are decreased in size. 2. Diverticulosis without evidence diverticulitis. 3. 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 Follow-up imaging in 12 months recommended for continued surveillance. This exam was performed according to our departmental dose-optimization program, which includes automated exposure control, adjustment of the mA and/or kV according to patient size and/or use of iterative reconstruction technique. Assessment & Plan - Diagnosis (1) Acute exacerbation of chronic obstructive airways disease Is this a current diagnosis for this admission?: Yes (2) Atrial fibrillation with rapid ventricular response Is this a current diagnosis for this admission?: Yes (3) Hematoma of abdominal wall Qualifiers: Encounter type: subsequent encounter Qualified Code(s): S30.1XXD - Contusion of abdominal wall, subsequent encounter Is this a current diagnosis for this admission?: Yes (4) History of deep vein thrombosis Is this a current diagnosis for this admission?: Yes (5) Acute kidney injury Is this a current diagnosis for this admission?: Yes (6) Hyponatremia Is this a current diagnosis for this admission?: Yes (7) Delirium Is this a current diagnosis for this admission?: Yes (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 Is this a current diagnosis for this admission?: Yes (9) Stridor Is this a current diagnosis for this admission?: Yes - Plan Summary Plan Summary: Continue Decadron IV and other treatment
[2017-06-26] MEDS ORDERED: FUROSEMIDE INJ/PF 40 MG/4 ML SDV IV ONE (20:45)
[2017-06-26] MEDS: METOPROLOL SUCCINATE 25 MG TAB.SR.24H PO SCH (22:45)
[2017-06-27] MEDS: IPRATROPIUM BROMIDE 0.02% NEB 0.5 MG/2.5 ML AMPUL NEB SCH ×6 (00:19→22:08)
[2017-06-27] MEDS: LEVALBUTEROL HCL NEB 1.25 MG/3 ML AMPUL NEB SCH ×6 (00:19→22:08)
[2017-06-27] MEDS: NORMAL SALINE 1000 ML 1,000 ML IV PRN ×2 (02:45→15:26)
[2017-06-27] MEDS: DEXAMETHASONE SOD PHOSPHATE INJ 4 MG/1 ML VIAL IV SCH ×3 (05:46→22:23)
[2017-06-27] MEDS: HALOPERIDOL LACTATE INJ 5 MG/1 ML VIAL IV PRN (05:47)
[2017-06-27] MEDS: BUDESONIDE NEB 0.5 MG/2 ML AMPUL NEB SCH ×2 (09:03→22:08)
[2017-06-27] MEDS ORDERED: DILTIAZEM HCL 180 MG CAPSULE.CR PO SCH (10:40)
[2017-06-27] MEDS: METOPROLOL SUCCINATE 25 MG TAB.SR.24H PO SCH ×2 (11:15→22:24)
[2017-06-27] MEDS: GUAIFENESIN 600 MG TABLET.SA PO SCH ×2 (11:16→22:24)
[2017-06-27] MEDS: FAMOTIDINE INJ/PF 20 MG/2 ML SDV IV SCH ×2 (11:17→22:23)
[2017-06-27] MEDS: APIXABAN 5 MG TABLET PO SCH ×2 (11:17→18:10)
[2017-06-27] MEDS: DOCUSATE SODIUM 100 MG CAPSULE PO SCH ×2 (11:17→18:10)
[2017-06-27] MEDS ORDERED: DILTIAZEM HCL 240 MG CAPSULE.CR PO ONE (11:30)
--- NOTE | 2017-06-27 12:02 | PDOC PROGRESS REPORT ---
Subjective Progress Note for:: 06/27/17 Subjective:: The patient continues to be in atrial fibrillation with ventricular response in the low 100s. He denies any shortness of breath or wheezing or cough. There is no PND orthopnea. There is trace pedal edema with venous stasis dermatitis changes. The patient denies any chest pain or discomfort. There is no bleeding on the Eliquis, with the hematoma is resolving in the abdominal wall. There is no TIA or CVA symptoms. The patient denies any dizziness near syncope or syncope. Reason For Visit: ATRIAL FRIBRILLATION WITH RAPID VENTRICULAR RESPON . Acute exacerbation of COPD. Physical Exam Vital Signs: Temp Pulse Resp BP Pulse Ox 98.2 F 116 H 20 132/85 H 96 06/27/17 03:34 06/27/17 09:03 06/27/17 09:03 06/27/17 03:34 06/27/17 09:03 Intake & Output 06/26/17 06/27/17 06/28/17 06:59 06:59 06:59 Intake Total 5493 5738 Output Total 2600 3460 Balance 2893 2278 Weight 98.2 kg General appearance: PRESENT: no acute distress, obese Head exam: PRESENT: atraumatic, normocephalic Eye exam: PRESENT: conjunctiva pink, EOMI, PERRLA, other - There is no scleral icterus. Ear exam: PRESENT: normal external ear exam, TM's normal bilaterally Mouth exam: PRESENT: moist, neck supple, tongue midline Teeth exam: PRESENT: other - The tongue is moist. There is no bleeding or ulcers in the gums. Throat exam: PRESENT: other - There is no redness of the oropharynx there is no exudates. Neck exam: PRESENT: other - Neck is supple. Carotids equal without any bruits. There is no JVD. There is no lymphadenopathy. There is no carotid trachea central. There is no accessory muscles of respiration in use. Respiratory exam: PRESENT: other - Lungs show diminished air entry and prolonged expiration on auscultation. There is hyperresonance on percussion. There is no rhonchi rales or wheezing. Cardiovascular exam: PRESENT: other - S1-S2 is present S1 is of variable intensity there is no S3 gallop there is no S4 gallop systolic murmur left sternal border and apex. There is no rub Pulses: PRESENT: other - Femorals are diminished there is no femoral bruits leg pulses are very much diminished there is trace pedal edema with venous stasis dermatitis changes. And evidence of healed ulcers in the left lower leg. There is no sinus or clubbing there is no calf tenderness. There is no cellulitis or DVT. GI/Abdominal exam: PRESENT: soft, other - Abdomen is mildly obese. There is no hepato-splenomegaly bowel sounds well heard there is no tender areas of masses. Rectal exam: PRESENT: deferred Musculoskeletal exam: PRESENT: full ROM, normal inspection, other - There is no acute joint swelling. Neurological exam: PRESENT: alert, awake, oriented to person, oriented to place , oriented to time, oriented to situation, reflexes normal, CN II-XII grossly intact, normal gait, other - There is no focal deficits. Psychiatric exam: PRESENT: other - The patient judgment and insight are intact his affect is normal. Skin exam: PRESENT: other - Skin is without any jaundice. There is no petechia or ecchymosis there is no skin lesions or skin rashes except for the venous stasis dermatitis of his lower extremities. Results Laboratory Results: 06/24/17 09:43 06/24/17 09:43 06/18/17 06/18/17 06/18/17 13:50 13:50 19:15 Creatine Kinase 392 H 466 H CK-MB (CK-2) 1.32 Troponin I < 0.012 NT-Pro-B Natriuret Pep 06/18/17 06/19/17 06/19/17 19:15 01:07 01:07 Creatine Kinase 661 H CK-MB (CK-2) 1.82 2.92 Troponin I < 0.012 < 0.012 NT-Pro-B Natriuret Pep 06/19/17 05:55 Creatine Kinase CK-MB (CK-2) Troponin I NT-Pro-B Natriuret Pep 1510 H Impressions: Chest CT 06/18/17 00:00 IMPRESSION: NO ACUTE INTRATHORACIC PROCESS. NO SIGNIFICANT CHANGE FROM PRIOR STUDY. Abdomen/Pelvis CT 06/19/17 00:00 IMPRESSION: Hematomas in the abdominal wall on the left. Renal Ultrasound 06/20/17 00:00 IMPRESSION: No hydronephrosis. Limited or Localized CT 06/23/17 23:34 IMPRESSION: 1. Redemonstrated left rectus sheath hematomas which are decreased in size. 2. Diverticulosis without evidence diverticulitis. 3. 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 Follow-up imaging in 12 months recommended for continued surveillance. This exam was performed according to our departmental dose-optimization program, which includes automated exposure control, adjustment of the mA and/or kV according to patient size and/or use of iterative reconstruction technique. Assessment & Plan - Diagnosis (1) Acute exacerbation of chronic obstructive airways disease Is this a current diagnosis for this admission?: Yes (2) Atrial fibrillation with rapid ventricular response Is this a current diagnosis for this admission?: Yes Plan: Continue Eliquis. Would increase the patient's Cardizem CD to 240 mg p.o. every 12 hours, which has been done. Cautiously continue and increase metoprolol if needed to control the heart rate. (4) Hematoma of abdominal wall Qualifiers: Encounter type: subsequent encounter Qualified Code(s): S30.1XXD - Contusion of abdominal wall, subsequent encounter Is this a current diagnosis for this admission?: Yes Plan: This seems to have resolved. This hematoma is due to the patient being on anticoagulation and having significant cough. (5) History of deep vein thrombosis Is this a current diagnosis for this admission?: Yes Plan: There is been no recurrence of the DVT, and the patient is on anticoagulation chronically. (6) Chronic obstructive lung disease Qualifiers: COPD type: chronic bronchitis Chronic bronchitis type: unspecified Qualified Code(s): J42 - Unspecified chronic bronchitis (7) Asthma Qualifiers: Asthma severity: unspecified severity Is this a current diagnosis for this admission?: Yes Plan: Continue nebulizer treatment, and current anti-asthma medication. (8) Pulmonary hypertension Is this a current diagnosis for this admission?: Yes Plan: The patient's Cardizem CD should help the patient's pulmonary hypertension. The patient will be recommended to have an outpatient sleep study to see if he has obstructive sleep apnea. (9) Depression Qualifiers: Depression Type: unspecified Qualified Code(s): F32.9 - Major depressive disorder, single episode, unspecified Is this a current diagnosis for this admission?: Yes Plan: At present the depression seems to be well controlled, with the patient having normal affect and mood. (10) Peripheral Vascular disease with stents Is this a current diagnosis for this admission?: Yes Plan: The patient has had a past history of stents in his lower extremity arteries. He has no claudication, and hence asymptomatic. We will continue to observe the patient (11) HTN (hypertension) Is this a current diagnosis for this admission?: Yes Plan: The patient's blood pressure seems to be well controlled, and there is room for increases in medication to control his atrial fibrillation. - Notes Notes: Note 30 minutes spent on this patient with more than 50% of the time spent in direct patient care. His medications have been reviewed, and adjusted. Discussed with the other caregiving providers on the case. Medical decision making is of moderate complexity. Note that the patient is a full code His and his daughter are the surrogate healthcare decision makers. Will follow with you.
--- NOTE | 2017-06-27 17:22 | EKG REPORT ---
SEVERITY:- ABNORMAL ECG - ATRIAL FIBRILLATION LOW VOLTAGE IN FRONTAL LEADS : Confirmed by: Clement Chang 27-Jun-2017 17:21:10
--- NOTE | 2017-06-27 21:42 | PDOC PROGRESS REPORT ---
Subjective Progress Note for:: 06/27/17 Subjective:: Patient is seen by the bedside still wheezing still requires Decadron Reason For Visit: ATRIAL FRIBRILLATION WITH RAPID VENTRICULAR RESPON Physical Exam Vital Signs: Temp Pulse Resp BP Pulse Ox 98.2 F 121 H 12 122/80 100 06/27/17 20:00 06/27/17 20:00 06/27/17 20:00 06/27/17 20:00 06/27/17 20:00 Intake & Output 06/26/17 06/27/17 06/28/17 06:59 06:59 06:59 Intake Total 5493 5738 2600 Output Total 2600 3460 2300 Balance 2893 2278 300 Weight 98.2 kg General appearance: PRESENT: mild distress Head exam: PRESENT: atraumatic, normocephalic Eye exam: PRESENT: conjunctiva pink, EOMI, PERRLA Ear exam: PRESENT: normal external ear exam Mouth exam: PRESENT: moist, tongue midline Neck exam: PRESENT: full ROM Respiratory exam: PRESENT: wheezes Cardiovascular exam: PRESENT: RRR, +S1, +S2 Pulses: PRESENT: normal dorsalis pedis pul, +2 pedal pulses bilateral Vascular exam: PRESENT: normal capillary refill GI/Abdominal exam: PRESENT: normal bowel sounds, soft Rectal exam: PRESENT: deferred Neurological exam: PRESENT: alert, awake, oriented to person, oriented to place , oriented to time, oriented to situation, CN II-XII grossly intact Psychiatric exam: PRESENT: appropriate affect, normal mood Skin exam: PRESENT: dry, intact, warm. ABSENT: cyanosis, rash Results Laboratory Results: 06/24/17 09:43 06/24/17 09:43 06/18/17 06/18/17 06/18/17 13:50 13:50 19:15 Creatine Kinase 392 H 466 H CK-MB (CK-2) 1.32 Troponin I < 0.012 NT-Pro-B Natriuret Pep 06/18/17 06/19/17 06/19/17 19:15 01:07 01:07 Creatine Kinase 661 H CK-MB (CK-2) 1.82 2.92 Troponin I < 0.012 < 0.012 NT-Pro-B Natriuret Pep 06/19/17 05:55 Creatine Kinase CK-MB (CK-2) Troponin I NT-Pro-B Natriuret Pep 1510 H Impressions: Chest CT 06/18/17 00:00 IMPRESSION: NO ACUTE INTRATHORACIC PROCESS. NO SIGNIFICANT CHANGE FROM PRIOR STUDY. Abdomen/Pelvis CT 06/19/17 00:00 IMPRESSION: Hematomas in the abdominal wall on the left. Renal Ultrasound 06/20/17 00:00 IMPRESSION: No hydronephrosis. Limited or Localized CT 06/23/17 23:34 IMPRESSION: 1. Redemonstrated left rectus sheath hematomas which are decreased in size. 2. Diverticulosis without evidence diverticulitis. 3. 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 Follow-up imaging in 12 months recommended for continued surveillance. This exam was performed according to our departmental dose-optimization program, which includes automated exposure control, adjustment of the mA and/or kV according to patient size and/or use of iterative reconstruction technique. Assessment & Plan - Diagnosis (1) Acute exacerbation of chronic obstructive airways disease Is this a current diagnosis for this admission?: Yes (2) Atrial fibrillation with rapid ventricular response Is this a current diagnosis for this admission?: Yes (3) Hematoma of abdominal wall Qualifiers: Encounter type: subsequent encounter Qualified Code(s): S30.1XXD - Contusion of abdominal wall, subsequent encounter Is this a current diagnosis for this admission?: Yes (4) History of deep vein thrombosis Is this a current diagnosis for this admission?: Yes (5) Acute kidney injury Is this a current diagnosis for this admission?: Yes (6) Hyponatremia Is this a current diagnosis for this admission?: Yes (7) Delirium Is this a current diagnosis for this admission?: Yes (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 Is this a current diagnosis for this admission?: Yes (9) Stridor Is this a current diagnosis for this admission?: Yes
[2017-06-27] MEDS: DILTIAZEM HCL 240 MG CAPSULE.CR PO SCH (22:23)
[2017-06-28] MEDS: IPRATROPIUM BROMIDE 0.02% NEB 0.5 MG/2.5 ML AMPUL NEB SCH ×7 (00:06→23:57)
[2017-06-28] MEDS: LEVALBUTEROL HCL NEB 1.25 MG/3 ML AMPUL NEB SCH ×7 (00:06→23:57)
[2017-06-28] MEDS: DEXAMETHASONE SOD PHOSPHATE INJ 4 MG/1 ML VIAL IV SCH ×3 (06:09→21:24)
[2017-06-28] MEDS: BUDESONIDE NEB 0.5 MG/2 ML AMPUL NEB SCH ×2 (08:29→20:25)
[2017-06-28] MEDS: METOPROLOL SUCCINATE 25 MG TAB.SR.24H PO SCH ×2 (09:31→21:23)
[2017-06-28] MEDS: DOCUSATE SODIUM 100 MG CAPSULE PO SCH ×2 (09:31→18:27)
[2017-06-28] MEDS: FAMOTIDINE INJ/PF 20 MG/2 ML SDV IV SCH ×2 (09:32→21:25)
[2017-06-28] MEDS: GUAIFENESIN 600 MG TABLET.SA PO SCH ×2 (09:32→21:23)
[2017-06-28] MEDS: APIXABAN 5 MG TABLET PO SCH ×2 (09:32→18:27)
[2017-06-28] MEDS: DILTIAZEM HCL 240 MG CAPSULE.CR PO SCH ×2 (09:32→21:22)
--- NOTE | 2017-06-28 13:02 | PDOC PROGRESS REPORT ---
Subjective Progress Note for:: 06/28/17 Subjective:: The patient states that the shortness of breath is much better and his wheezing is also much better there is very faint occasional end-expiratory wheezes and a few scattered rhonchi much improved from yesterday's exam. The patient continues to be in atrial fibrillation but now the ventricular response is in the 70s. There is no bleeding on Eliquis the hematomas of the abdomen have, and are resolving. There is no TIA or CVA symptoms. There is no ventricular arrhythmias seen. The patient has no chest pain or discomfort there is no PND or orthopnea. There is trace pedal edema bilaterally with venous stasis dermatitis changes. Reason For Visit: ATRIAL FRIBRILLATION WITH RAPID VENTRICULAR RESPON Physical Exam Vital Signs: Temp Pulse Resp BP Pulse Ox 98.0 F 83 22 H 110/70 100 06/28/17 11:54 06/28/17 11:54 06/28/17 11:54 06/28/17 11:54 06/28/17 11:54 Intake & Output 06/27/17 06/28/17 06/29/17 06:59 06:59 06:59 Intake Total 5738 4294 458 Output Total 3460 3350 300 Balance 2278 944 158 Weight 98.2 kg 97.5 kg General appearance: PRESENT: no acute distress, hard of hearing, obese Head exam: PRESENT: atraumatic, normocephalic Eye exam: PRESENT: conjunctiva pink, EOMI, PERRLA, other - There is no scleral icterus. Ear exam: PRESENT: normal external ear exam, TM's normal bilaterally Mouth exam: PRESENT: moist, neck supple, tongue midline, other - There is no bleeding from the gums, and there is no ulcers in the buccal mucosa or the gums. Throat exam: PRESENT: other - There is no redness of the oropharynx, and there is no tonsillar exudates. Neck exam: PRESENT: other - Neck is supple there is no JVD. Carotids are equal there is no bruit. There is no lymphadenopathy. There is no thyromegaly trachea central. There is no back Respiratory exam: PRESENT: other - There is no accessory muscles of respiration use. There is diminished air entry and prolonged expiration on auscultation. On percussion there is hyperresonance. There is very occasional faint end expiratory wheezing and very occasional rhonchi. There is no rales of heart failure Cardiovascular exam: PRESENT: other - S1-S2 is heard S1 is of variable intensity. There is no S3 gallop ,there is no S4 gallop. Systolic murmur left sternal border and apex there is no rub. Pulses: PRESENT: other - Femorals are diminished there is no femoral bruits neck pulses are difficult to palpate. Vascular exam: PRESENT: normal capillary refill, other - There is no cyanosis or clubbing. GI/Abdominal exam: PRESENT: other - Abdomen is soft nontender. There is no hepatosplenomegaly. No tender areas of masses. Bowel sounds well heard Rectal exam: PRESENT: deferred Extremities exam: PRESENT: other - There is trace pedal edema without any evidence of cellulitis or DVT there is venous stasis dermatitis changes. There is no calf tenderness. Musculoskeletal exam: PRESENT: full ROM, normal inspection Neurological exam: PRESENT: other - The patient is awake alert oriented 3 with no focal deficits. Psychiatric exam: PRESENT: other - The patient judgment and insight are intact his affect is normal. Skin exam: PRESENT: other - Skin shows no evidence of ecchymosis or petechiae. There is no skin lesions or skin rashes. There is no jaundice. Results Laboratory Results: 06/24/17 09:43 06/24/17 09:43 06/18/17 06/18/17 06/18/17 13:50 13:50 19:15 Creatine Kinase 392 H 466 H CK-MB (CK-2) 1.32 Troponin I < 0.012 NT-Pro-B Natriuret Pep 06/18/17 06/19/17 06/19/17 19:15 01:07 01:07 Creatine Kinase 661 H CK-MB (CK-2) 1.82 2.92 Troponin I < 0.012 < 0.012 NT-Pro-B Natriuret Pep 06/19/17 05:55 Creatine Kinase CK-MB (CK-2) Troponin I NT-Pro-B Natriuret Pep 1510 H Impressions: Chest CT 06/18/17 00:00 IMPRESSION: NO ACUTE INTRATHORACIC PROCESS. NO SIGNIFICANT CHANGE FROM PRIOR STUDY. Abdomen/Pelvis CT 06/19/17 00:00 IMPRESSION: Hematomas in the abdominal wall on the left. Renal Ultrasound 06/20/17 00:00 IMPRESSION: No hydronephrosis. Limited or Localized CT 06/23/17 23:34 IMPRESSION: 1. Redemonstrated left rectus sheath hematomas which are decreased in size. 2. Diverticulosis without evidence diverticulitis. 3. 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 Follow-up imaging in 12 months recommended for continued surveillance. This exam was performed according to our departmental dose-optimization program, which includes automated exposure control, adjustment of the mA and/or kV according to patient size and/or use of iterative reconstruction technique. Assessment & Plan - Diagnosis (1) Depression Qualifiers: Psychotic features: without psychotic features Is this a current diagnosis for this admission?: Yes Plan: Note that the patient on current medication his depression is very well controlled. (2) HTN (hypertension) Qualifiers: Hypertension type: essential hypertension Qualified Code(s): I10 - Essential (primary) hypertension Is this a current diagnosis for this admission?: Yes Plan: Note that the patient's blood pressure is well controlled. (3) Pulmonary hypertension Is this a current diagnosis for this admission?: Yes Plan: The patient's Cardizem CD should help the patient's pulmonary hypertension. The patient will be recommended to have an outpatient sleep study to see if he has obstructive sleep apnea. (4) Asthma Qualifiers: Asthma severity: unspecified severity Is this a current diagnosis for this admission?: Yes Plan: Note that the patient's wheezing is improved but still has some amount of wheezing which is minimal. Would anticipate that this should resolve in the next 24-48 hours with the current therapy. (5) Chronic obstructive lung disease Qualifiers: COPD type: chronic bronchitis Chronic bronchitis type: unspecified Qualified Code(s): J42 - Unspecified chronic bronchitis Is this a current diagnosis for this admission?: Yes Plan: Continue current nebulizer treatments and steroids and antibiotics. (6) History of deep vein thrombosis Is this a current diagnosis for this admission?: Yes Plan: There is no recurrence. The patient is on anticoagulation chronically. (7) Cough Plan: Cough is much improved there is very occasional cough now. (8) Atrial fibrillation with rapid ventricular response Is this a current diagnosis for this admission?: Yes Plan: The event the ventricular response is much much more controlled today. Continue the patient's Cardizem CD at 240 mg p.o. every 12 hours. Will wait till tomorrow to see if we need to increase the patient's beta-laquita. (9) Acute exacerbation of chronic obstructive airways disease Is this a current diagnosis for this admission?: Yes Plan: Continue respiratory therapy with nebulizers, steroids and antibiotics. (10) Hematoma of abdominal wall Qualifiers: Encounter type: subsequent encounter Qualified Code(s): S30.1XXD - Contusion of abdominal wall, subsequent encounter Is this a current diagnosis for this admission?: Yes Plan: This seems to have resolved. This hematoma is due to the patient being on anticoagulation and having significant cough. Note hematoma seems to be resolving, and the patient's cough is much improved, and much less. (11) Peripheral Vascular disease with stents Is this a current diagnosis for this admission?: Yes Plan: The patient has had a past history of stents in his lower extremity arteries. He has no claudication, and hence asymptomatic. We will continue to observe the patient - Notes Notes: Note 25 minutes spent on this patient more than 50% of the time spent in direct patient care. His medications have been reviewed and the plan of care has been discussed with attending physician. Medical decision now is of moderate complexity. We will follow with you.
[2017-06-28] MEDS: NORMAL SALINE 1000 ML 1,000 ML IV PRN (13:32)
[2017-06-28] MEDS: HYDROCODONE/ACETAMINOPHEN 5-325 MG TABLET PO PRN (16:20)
[2017-06-28 18:34] LABS: HEMOGLOBIN 9.9 g/dL (13.5-17.0); MEAN CORPUSCULAR VOLUME 97 fl (80-97); PLATELET COUNT 235 10^3/uL (150-450); RED CELL DISTRIBUTION WIDTH 14.3 % (11.5-14.0); WHITE BLOOD COUNT 18.1 10^3/uL (4.0-10.5)
[2017-06-28 18:52] LABS: ALANINE AMINOTRANSFERASE 54 U/L (21-72); ALBUMIN 3.5 g/dL (3.5-5.0); ALKALINE PHOSPHATASE 47 U/L (38-126); ANION GAP 7 (5-19); ASPARTATE AMINO TRANSFERASE 31 U/L (17-59); BILIRUBIN,DIRECT 0.2 mg/dL (0.0-0.4); BILIRUBIN,TOTAL 0.9 mg/dL (0.2-1.3); BLOOD UREA NITROGEN 21 mg/dL (7-20); CALCIUM 9.1 mg/dL (8.4-10.2); CARBON DIOXIDE 28 mmol/L (22-30); CHLORIDE 100 mmol/L (98-107); GLUCOSE 136 mg/dL (75-110); POTASSIUM 4.7 mmol/L (3.6-5.0); SODIUM 135.2 mmol/L (137-145); TOTAL PROTEIN 6.2 g/dL (6.3-8.2)
[2017-06-28 18:54] LABS: ABSOLUTE LYMPHOCYTES# (MANUAL) 0.7 10^3/uL (0.5-4.7); ABSOLUTE MONOCYTES # (MANUAL) 1.1 10^3/uL (0.1-1.4); ABSOLUTE NEUTROPHILS# (MANUAL) 16.3 10^3/uL (1.7-8.2); BASOPHILS % (MANUAL) 0 % (0-2); EOSINOPHILS % (MANUAL) 0 % (0-6); LYMPHOCYTES % (MANUAL) 4 % (13-45); MONOCYTES % (MANUAL) 6 % (3-13); SEGMENTED NEUTROPHILS % (MAN) 90 % (42-78); TOTAL CELLS COUNTED 100
[2017-06-28 18:56] LABS: ANISOCYTOSIS SLIGHT; HYPERSEGMENTED NEUTROPHILS PRESENT; PLATELET COMMENT ADEQUATE; POIKILOCYTOSIS SLIGHT; TOXIC GRANULATION SLIGHT
--- NOTE | 2017-06-28 22:26 | PDOC PROGRESS REPORT ---
Subjective Progress Note for:: 06/28/17 Subjective:: Patient is seen by the bedside, today is the first time that patient is not overly wheezing on it looks better than all previous days he has been in the hospital Reason For Visit: ATRIAL FRIBRILLATION WITH RAPID VENTRICULAR RESPON Physical Exam Vital Signs: Temp Pulse Resp BP Pulse Ox 98.0 F 105 H 16 110/70 97 06/28/17 11:54 06/28/17 20:25 06/28/17 20:25 06/28/17 11:54 06/28/17 20:25 Intake & Output 06/27/17 06/28/17 06/29/17 06:59 06:59 06:59 Intake Total 5738 4294 2234 Output Total 3460 3350 1000 Balance 2278 944 1234 Weight 98.2 kg 97.5 kg General appearance: PRESENT: no acute distress Head exam: PRESENT: atraumatic, normocephalic Eye exam: PRESENT: conjunctiva pink, EOMI, PERRLA Ear exam: PRESENT: normal external ear exam Mouth exam: PRESENT: moist, tongue midline Neck exam: PRESENT: full ROM. ABSENT: carotid bruit, JVD, lymphadenopathy, thyromegaly Respiratory exam: PRESENT: wheezes Cardiovascular exam: PRESENT: RRR, +S1, +S2 Pulses: PRESENT: normal dorsalis pedis pul, +2 pedal pulses bilateral Vascular exam: PRESENT: normal capillary refill GI/Abdominal exam: PRESENT: normal bowel sounds, soft. ABSENT: distended, guarding, mass, organolmegaly, rebound, tenderness Rectal exam: PRESENT: deferred Neurological exam: PRESENT: alert, awake, oriented to person, oriented to place , oriented to time, oriented to situation, CN II-XII grossly intact. ABSENT: motor sensory deficit Psychiatric exam: PRESENT: appropriate affect, normal mood. ABSENT: homicidal ideation, suicidal ideation Skin exam: PRESENT: dry, intact, warm. ABSENT: cyanosis, rash Results Laboratory Results: 06/28/17 18:18 06/28/17 18:18 06/28/17 06/28/17 18:18 18:18 WBC 18.1 H RBC 3.00 L Hgb 9.9 L Hct 29.0 L MCV 97 MCH 33.0 MCHC 34.0 RDW 14.3 H Plt Count 235 Seg Neutrophils % Not Reportable Lymphocytes % Not Reportable Monocytes % Not Reportable Eosinophils % Not Reportable Basophils % Not Reportable Absolute Neutrophils Not Reportable Absolute Lymphocytes Not Reportable Absolute Monocytes Not Reportable Absolute Eosinophils Not Reportable Absolute Basophils Not Reportable Sodium 135.2 L Potassium 4.7 Chloride 100 Carbon Dioxide 28 Anion Gap 7 BUN 21 H Creatinine 0.84 Est GFR ( Amer) > 60 Est GFR (Non-Af Amer) > 60 Glucose 136 H Calcium 9.1 Total Bilirubin 0.9 AST 31 ALT 54 Alkaline Phosphatase 47 Total Protein 6.2 L Albumin 3.5 06/18/17 06/18/17 06/18/17 13:50 13:50 19:15 Creatine Kinase 392 H 466 H CK-MB (CK-2) 1.32 Troponin I < 0.012 NT-Pro-B Natriuret Pep 06/18/17 06/19/17 06/19/17 19:15 01:07 01:07 Creatine Kinase 661 H CK-MB (CK-2) 1.82 2.92 Troponin I < 0.012 < 0.012 NT-Pro-B Natriuret Pep 06/19/17 05:55 Creatine Kinase CK-MB (CK-2) Troponin I NT-Pro-B Natriuret Pep 1510 H Impressions: Chest CT 06/18/17 00:00 IMPRESSION: NO ACUTE INTRATHORACIC PROCESS. NO SIGNIFICANT CHANGE FROM PRIOR STUDY. Abdomen/Pelvis CT 06/19/17 00:00 IMPRESSION: Hematomas in the abdominal wall on the left. Renal Ultrasound 06/20/17 00:00 IMPRESSION: No hydronephrosis. Limited or Localized CT 06/23/17 23:34 IMPRESSION: 1. Redemonstrated left rectus sheath hematomas which are decreased in size. 2. Diverticulosis without evidence diverticulitis. 3. 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 Follow-up imaging in 12 months recommended for continued surveillance. This exam was performed according to our departmental dose-optimization program, which includes automated exposure control, adjustment of the mA and/or kV according to patient size and/or use of iterative reconstruction technique. Assessment & Plan - Diagnosis (1) Acute exacerbation of chronic obstructive airways disease Is this a current diagnosis for this admission?: Yes (2) Atrial fibrillation with rapid ventricular response Is this a current diagnosis for this admission?: Yes (3) Hematoma of abdominal wall Qualifiers: Encounter type: subsequent encounter Qualified Code(s): S30.1XXD - Contusion of abdominal wall, subsequent encounter Is this a current diagnosis for this admission?: Yes (4) History of deep vein thrombosis Is this a current diagnosis for this admission?: Yes (5) Acute kidney injury Is this a current diagnosis for this admission?: Yes (6) Hyponatremia Is this a current diagnosis for this admission?: Yes (7) Delirium Is this a current diagnosis for this admission?: Yes (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
[2017-06-29] MEDS: IPRATROPIUM BROMIDE 0.02% NEB 0.5 MG/2.5 ML AMPUL NEB SCH ×5 (04:20→20:24)
[2017-06-29] MEDS: LEVALBUTEROL HCL NEB 1.25 MG/3 ML AMPUL NEB SCH ×5 (04:20→20:24)
[2017-06-29] MEDS: HYDROCODONE/ACETAMINOPHEN 5-325 MG TABLET PO PRN (04:52)
[2017-06-29] MEDS: BUDESONIDE NEB 0.5 MG/2 ML AMPUL NEB SCH ×2 (08:53→20:24)
[2017-06-29] MEDS: FAMOTIDINE INJ/PF 20 MG/2 ML SDV IV SCH ×2 (09:15→21:13)
[2017-06-29] MEDS: PREDNISONE 20 MG TABLET PO SCH (09:15)
[2017-06-29] MEDS: DOCUSATE SODIUM 100 MG CAPSULE PO SCH ×2 (09:15→17:03)
[2017-06-29] MEDS: GUAIFENESIN 600 MG TABLET.SA PO SCH ×2 (09:15→21:13)
[2017-06-29] MEDS: METOPROLOL SUCCINATE 25 MG TAB.SR.24H PO SCH ×2 (09:16→21:14)
[2017-06-29] MEDS: DILTIAZEM HCL 240 MG CAPSULE.CR PO SCH ×2 (09:16→21:13)
[2017-06-29] MEDS: APIXABAN 5 MG TABLET PO SCH ×2 (09:16→17:03)
--- NOTE | 2017-06-29 16:33 | PDOC PROGRESS REPORT ---
Subjective Progress Note for:: 06/29/17 Subjective:: Patient seen by the bedside, continues to improve Reason For Visit: ATRIAL FRIBRILLATION WITH RAPID VENTRICULAR RESPON Physical Exam Vital Signs: Temp Pulse Resp BP Pulse Ox 97.9 F 77 14 128/76 H 100 06/29/17 11:50 06/29/17 14:00 06/29/17 12:56 06/29/17 11:50 06/29/17 11:50 Intake & Output 06/28/17 06/29/17 06/30/17 06:59 06:59 06:59 Intake Total 4294 3193 Output Total 3350 1875 Balance 944 1318 Weight 97.5 kg 97.9 kg General appearance: PRESENT: no acute distress Respiratory exam: PRESENT: clear to auscultation poonam Cardiovascular exam: PRESENT: +S1, +S2 GI/Abdominal exam: PRESENT: soft Neurological exam: PRESENT: alert Results Laboratory Results: 06/28/17 18:18 06/28/17 18:18 06/28/17 06/28/17 18:18 18:18 WBC 18.1 H RBC 3.00 L Hgb 9.9 L Hct 29.0 L MCV 97 MCH 33.0 MCHC 34.0 RDW 14.3 H Plt Count 235 Seg Neutrophils % Not Reportable Lymphocytes % Not Reportable Monocytes % Not Reportable Eosinophils % Not Reportable Basophils % Not Reportable Absolute Neutrophils Not Reportable Absolute Lymphocytes Not Reportable Absolute Monocytes Not Reportable Absolute Eosinophils Not Reportable Absolute Basophils Not Reportable Sodium 135.2 L Potassium 4.7 Chloride 100 Carbon Dioxide 28 Anion Gap 7 BUN 21 H Creatinine 0.84 Est GFR ( Amer) > 60 Est GFR (Non-Af Amer) > 60 Glucose 136 H Calcium 9.1 Total Bilirubin 0.9 AST 31 ALT 54 Alkaline Phosphatase 47 Total Protein 6.2 L Albumin 3.5 06/18/17 06/18/17 06/18/17 13:50 13:50 19:15 Creatine Kinase 392 H 466 H CK-MB (CK-2) 1.32 Troponin I < 0.012 NT-Pro-B Natriuret Pep 06/18/17 06/19/17 06/19/17 19:15 01:07 01:07 Creatine Kinase 661 H CK-MB (CK-2) 1.82 2.92 Troponin I < 0.012 < 0.012 NT-Pro-B Natriuret Pep 06/19/17 05:55 Creatine Kinase CK-MB (CK-2) Troponin I NT-Pro-B Natriuret Pep 1510 H Impressions: Chest CT 06/18/17 00:00 IMPRESSION: NO ACUTE INTRATHORACIC PROCESS. NO SIGNIFICANT CHANGE FROM PRIOR STUDY. Abdomen/Pelvis CT 06/19/17 00:00 IMPRESSION: Hematomas in the abdominal wall on the left. Renal Ultrasound 06/20/17 00:00 IMPRESSION: No hydronephrosis. Limited or Localized CT 06/23/17 23:34 IMPRESSION: 1. Redemonstrated left rectus sheath hematomas which are decreased in size. 2. Diverticulosis without evidence diverticulitis. 3. 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 Follow-up imaging in 12 months recommended for continued surveillance. This exam was performed according to our departmental dose-optimization program, which includes automated exposure control, adjustment of the mA and/or kV according to patient size and/or use of iterative reconstruction technique. Assessment & Plan - Diagnosis (1) Acute exacerbation of chronic obstructive airways disease Is this a current diagnosis for this admission?: Yes (2) Atrial fibrillation with rapid ventricular response Is this a current diagnosis for this admission?: Yes (3) Hematoma of abdominal wall Qualifiers: Encounter type: subsequent encounter Qualified Code(s): S30.1XXD - Contusion of abdominal wall, subsequent encounter Is this a current diagnosis for this admission?: Yes (4) History of deep vein thrombosis Is this a current diagnosis for this admission?: Yes (5) Acute kidney injury Is this a current diagnosis for this admission?: Yes (6) Hyponatremia Is this a current diagnosis for this admission?: Yes (7) Delirium Is this a current diagnosis for this admission?: Yes (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
[2017-06-29] MEDS ORDERED: FUROSEMIDE INJ/PF 40 MG/4 ML SDV IV ONE (18:00)
[2017-06-29 18:29] LABS: ALANINE AMINOTRANSFERASE 58 U/L (21-72); ALBUMIN 3.9 g/dL (3.5-5.0); ALKALINE PHOSPHATASE 53 U/L (38-126); ANION GAP 8 (5-19); ASPARTATE AMINO TRANSFERASE 31 U/L (17-59); BILIRUBIN,DIRECT 0.2 mg/dL (0.0-0.4); BILIRUBIN,TOTAL 0.9 mg/dL (0.2-1.3); BLOOD UREA NITROGEN 27 mg/dL (7-20); CALCIUM 9.7 mg/dL (8.4-10.2); CARBON DIOXIDE 29 mmol/L (22-30); CHLORIDE 97 mmol/L (98-107); GLUCOSE 115 mg/dL (75-110); POTASSIUM 4.8 mmol/L (3.6-5.0); SODIUM 134.2 mmol/L (137-145); TOTAL PROTEIN 6.7 g/dL (6.3-8.2)
--- NOTE | 2017-06-29 20:45 | PDOC PROGRESS REPORT ---
Subjective Progress Note for:: 06/29/17 Subjective:: The patient continues to improve slowly. He still has a few end expiratory wheezing and a few scattered rhonchi. The patient denies any orthopnea now there is no PND there is trace pedal edema which is chronic with venous stasis dermatitis. There is no evidence of cellulitis. The patient's shortness of breath is much improved although if he moves in bed he still has shortness of breath. His atrial fibrillation ventricular response has been well controlled at present on current Cardizem and Lopressor. His monitor does not show any ventricular arrhythmias or AV blocks of significance. The patient had no chest pain or discomfort. There is no bleeding on Eliquis, and there is no TIA or CVA symptoms. Reason For Visit: ATRIAL FRIBRILLATION WITH RAPID VENTRICULAR RESPON Physical Exam Vital Signs: Temp Pulse Resp BP Pulse Ox 98.5 F 91 16 131/73 H 96 06/29/17 16:19 06/29/17 16:55 06/29/17 16:55 06/29/17 16:19 06/29/17 16:55 Intake & Output 06/28/17 06/29/17 06/30/17 06:59 06:59 06:59 Intake Total 4294 3193 691 Output Total 3350 1875 Balance 944 1318 691 Weight 97.5 kg 97.9 kg General appearance: PRESENT: no acute distress, cooperative, obese, other - He is well-groomed Head exam: PRESENT: atraumatic - ., normocephalic Eye exam: PRESENT: conjunctiva pink, EOMI, PERRLA, other - There is no scleral icterus. Ear exam: PRESENT: normal external ear exam, TM's normal bilaterally Mouth exam: PRESENT: moist, tongue midline Teeth exam: PRESENT: other - There is no ulcers in the mouth or gums. There is no bleeding from the gums. Throat exam: PRESENT: other - There is no redness of the oropharynx, and there are no exudates in the throat. Neck exam: PRESENT: other - Neck is supple there is no JVD. Carotids are equal there is no bruit. There is no lymphadenopathy. There is no goiter. Trachea central Respiratory exam: PRESENT: other - There is no chest wall tenderness. There is no accessory muscles of respiration use. There is diminished air entry and prolonged expiration on auscultation. On percussion there is hyperresonance also there is a few end expiratory wheezing which is much much less than yesterday's exam. There is occasional scattered rhonchi. There is no rales of CHF. Cardiovascular exam: PRESENT: other - S1-S2 is heard S1 is of variable intensity there is no S3 gallop there is no S4 gallop systolic murmur left sternal border and apex there is no rub. Vascular exam: PRESENT: normal capillary refill GI/Abdominal exam: PRESENT: other. ABSENT: hypoactive bowel sounds - Abdomen is soft slightly obese in without any hepatosplenomegaly. Bowel sounds are normal. There is no tender areas of masses. Rectal exam: PRESENT: deferred Musculoskeletal exam: PRESENT: full ROM, normal inspection Neurological exam: PRESENT: other - The patient is conscious awake alert oriented 3 with no focal deficits. Psychiatric exam: PRESENT: other - The patient judgment and insight are intact his affect is normal. Results Laboratory Results: 06/28/17 18:18 06/29/17 17:50 06/29/17 17:50 Sodium 134.2 L Potassium 4.8 Chloride 97 L Carbon Dioxide 29 Anion Gap 8 BUN 27 H Creatinine 1.08 Est GFR ( Amer) > 60 Est GFR (Non-Af Amer) > 60 Glucose 115 H Calcium 9.7 Total Bilirubin 0.9 AST 31 ALT 58 Alkaline Phosphatase 53 Total Protein 6.7 Albumin 3.9 06/18/17 06/18/17 06/18/17 13:50 13:50 19:15 Creatine Kinase 392 H 466 H CK-MB (CK-2) 1.32 Troponin I < 0.012 NT-Pro-B Natriuret Pep 06/18/17 06/19/17 06/19/17 19:15 01:07 01:07 Creatine Kinase 661 H CK-MB (CK-2) 1.82 2.92 Troponin I < 0.012 < 0.012 NT-Pro-B Natriuret Pep 06/19/17 05:55 Creatine Kinase CK-MB (CK-2) Troponin I NT-Pro-B Natriuret Pep 1510 H Impressions: Chest CT 06/18/17 00:00 IMPRESSION: NO ACUTE INTRATHORACIC PROCESS. NO SIGNIFICANT CHANGE FROM PRIOR STUDY. Abdomen/Pelvis CT 06/19/17 00:00 IMPRESSION: Hematomas in the abdominal wall on the left. Renal Ultrasound 06/20/17 00:00 IMPRESSION: No hydronephrosis. Limited or Localized CT 06/23/17 23:34 IMPRESSION: 1. Redemonstrated left rectus sheath hematomas which are decreased in size. 2. Diverticulosis without evidence diverticulitis. 3. 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 Follow-up imaging in 12 months recommended for continued surveillance. This exam was performed according to our departmental dose-optimization program, which includes automated exposure control, adjustment of the mA and/or kV according to patient size and/or use of iterative reconstruction technique. Assessment & Plan - Diagnosis (1) Depression Qualifiers: Psychotic features: without psychotic features Is this a current diagnosis for this admission?: Yes Plan: Note that the patient on current medication his depression is very well controlled. (2) HTN (hypertension) Qualifiers: Hypertension type: essential hypertension Qualified Code(s): I10 - Essential (primary) hypertension Is this a current diagnosis for this admission?: Yes Plan: Note that the patient's blood pressure is well controlled. (3) Pulmonary hypertension Is this a current diagnosis for this admission?: Yes Plan: The patient's Cardizem CD should help the patient's pulmonary hypertension. The patient will be recommended to have an outpatient sleep study to see if he has obstructive sleep apnea. Once the patient's COPD goes back to baseline, then as an outpatient will get a full PFTs with DLCO. (4) Asthma Qualifiers: Asthma severity: unspecified severity Is this a current diagnosis for this admission?: Yes Plan: Note that the patient's wheezing is improved but still has some amount of wheezing which is minimal. Would anticipate that this should resolve in the next 24-48 hours with the current therapy. (5) Chronic obstructive lung disease Qualifiers: COPD type: chronic bronchitis Chronic bronchitis type: unspecified Qualified Code(s): J42 - Unspecified chronic bronchitis Is this a current diagnosis for this admission?: Yes Plan: Continue current nebulizer treatments and steroids and antibiotics. (6) History of deep vein thrombosis Is this a current diagnosis for this admission?: Yes Plan: There is been no recurrence of DVT., And the patient is on chronic anticoagulation therapy (7) Cough Is this a current diagnosis for this admission?: Yes Plan: This is resolved. (8) Atrial fibrillation with rapid ventricular response Is this a current diagnosis for this admission?: Yes Plan: Note that the patient is on chronic anticoagulation, and with the current regimen of Cardizem CD 254-40 mg p.o. twice daily and metoprolol the patient's heart rate is well controlled. (9) Acute exacerbation of chronic obstructive airways disease Is this a current diagnosis for this admission?: Yes (10) Hematoma of abdominal wall Qualifiers: Encounter type: subsequent encounter Qualified Code(s): S30.1XXD - Contusion of abdominal wall, subsequent encounter Is this a current diagnosis for this admission?: Yes Plan: This seems to have resolved. This hematoma is due to the patient being on anticoagulation and having significant cough. Note hematoma seems to be resolving, and the patient's cough is much improved, and much less. (11) Peripheral Vascular disease with stents Is this a current diagnosis for this admission?: Yes Plan: The patient has had a past history of stents in his lower extremity arteries. He has no claudication, and hence asymptomatic. We will continue to observe the patient - Notes Notes: Note 25 minutes (patient was not 50% spent in direct patient care. His medications be reviewed and the medications and care plan management of the patient has been discussed with other caregiving providers in the case including the attending physician. Note medical decision making is of moderate complexity. - Time Medications reviewed and adjusted accordingly: Yes
[2017-06-30] MEDS: LEVALBUTEROL HCL NEB 1.25 MG/3 ML AMPUL NEB SCH ×4 (00:19→12:42)
[2017-06-30] MEDS: IPRATROPIUM BROMIDE 0.02% NEB 0.5 MG/2.5 ML AMPUL NEB SCH ×4 (00:20→12:42)
[2017-06-30] MEDS: GUAIFENESIN SYRP 200 MG/10 ML UDC PO PRN (06:48)
[2017-06-30] MEDS: BUDESONIDE NEB 0.5 MG/2 ML AMPUL NEB SCH (08:39)
[2017-06-30] MEDS: METOPROLOL SUCCINATE 25 MG TAB.SR.24H PO SCH (10:16)
[2017-06-30] MEDS: DILTIAZEM HCL 240 MG CAPSULE.CR PO SCH (10:17)
[2017-06-30] MEDS: GUAIFENESIN 600 MG TABLET.SA PO SCH (10:17)
[2017-06-30] MEDS: FAMOTIDINE INJ/PF 20 MG/2 ML SDV IV SCH (10:18)
[2017-06-30] MEDS: PREDNISONE 20 MG TABLET PO SCH (10:18)
[2017-06-30] MEDS: DOCUSATE SODIUM 100 MG CAPSULE PO SCH (10:18)
[2017-06-30] MEDS: APIXABAN 5 MG TABLET PO SCH (10:18)
[2017-06-30 13:32] VITALS: BP 122/80
--- NOTE | 2017-06-30 15:11 | PDOC PROGRESS REPORT ---
Subjective Progress Note for:: 06/30/17 Subjective:: The patient is much improved he has no wheezing there is no cough there is no PND orthopnea his leg edema is trace there is no chest pain or discomfort the patient continues to be in atrial fibrillation with a controlled ventricular response. The patient is anxious to go home Reason For Visit: ATRIAL FRIBRILLATION WITH RAPID VENTRICULAR RESPON Physical Exam Vital Signs: Temp Pulse Resp BP Pulse Ox 98.4 F 70 18 122/80 98 06/30/17 13:30 06/30/17 13:30 06/30/17 13:30 06/30/17 13:30 06/30/17 13:30 Intake & Output 06/29/17 06/30/17 07/01/17 06:59 06:59 06:59 Intake Total 3193 1533 Output Total 1875 750 Balance 1318 783 Weight 97.9 kg 94.7 kg General appearance: PRESENT: no acute distress, obese, well-nourished Head exam: PRESENT: atraumatic, normocephalic Eye exam: PRESENT: conjunctiva pink, PERRLA, other - Extraocular movements are normal. There is no scleral icterus. Mouth exam: PRESENT: moist, tongue midline, other - There is no ulcers in the mouth. There is no bleeding from the gums. Throat exam: PRESENT: other - There is no exudates in the throat, and there is no redness of the oropharynx. Neck exam: PRESENT: other - Neck is supple there is no JVD carotids equal there is no bruit there is no goiter there is no JVD. Trachea central there is no accessory muscles of respiration in use. Respiratory exam: PRESENT: other - Lungs show diminished air entry prolonged expiration on auscultation without any rhonchi rales or wheezing. On percussion there is hyperresonance. There is no chest wall tenderness. Cardiovascular exam: PRESENT: other - S1-S2 is heard there is no S3 gallop there is no S4 gallop S1 is of variable intensity systolic murmur left sternal border and apex there is no rub. Pulses: PRESENT: other - Femorals are diminished there is no femoral bruits neck pulses difficult to palpate but there are faint capillary refill is normal. There is no cyanosis or pallor there is trace pedal edema with venous stasis dermatitis changes. There is no calf tenderness. Vascular exam: PRESENT: normal capillary refill, pallor GI/Abdominal exam: PRESENT: other - Abdomen is soft obese nontender there is no paraspinal megaly bowel sounds well heard there is no tender areas masses. Rectal exam: PRESENT: deferred Extremities exam: PRESENT: other Musculoskeletal exam: PRESENT: full ROM, normal inspection Neurological exam: PRESENT: other - The patient is conscious awake alert oriented 3 with no focal deficits. Psychiatric exam: PRESENT: other - The patient judgment and insight are intact his affect is normal. Skin exam: PRESENT: other - Skin is without any petechiae or ecchymosis there is no skin rashes or skin lesions. Results Laboratory Results: 06/28/17 18:18 06/29/17 17:50 06/29/17 17:50 Sodium 134.2 L Potassium 4.8 Chloride 97 L Carbon Dioxide 29 Anion Gap 8 BUN 27 H Creatinine 1.08 Est GFR ( Amer) > 60 Est GFR (Non-Af Amer) > 60 Glucose 115 H Calcium 9.7 Total Bilirubin 0.9 AST 31 ALT 58 Alkaline Phosphatase 53 Total Protein 6.7 Albumin 3.9 06/18/17 06/18/17 06/18/17 13:50 13:50 19:15 Creatine Kinase 392 H 466 H CK-MB (CK-2) 1.32 Troponin I < 0.012 NT-Pro-B Natriuret Pep 06/18/17 06/19/17 06/19/17 19:15 01:07 01:07 Creatine Kinase 661 H CK-MB (CK-2) 1.82 2.92 Troponin I < 0.012 < 0.012 NT-Pro-B Natriuret Pep 06/19/17 05:55 Creatine Kinase CK-MB (CK-2) Troponin I NT-Pro-B Natriuret Pep 1510 H Impressions: Chest CT 06/18/17 00:00 IMPRESSION: NO ACUTE INTRATHORACIC PROCESS. NO SIGNIFICANT CHANGE FROM PRIOR STUDY. Abdomen/Pelvis CT 06/19/17 00:00 IMPRESSION: Hematomas in the abdominal wall on the left. Renal Ultrasound 06/20/17 00:00 IMPRESSION: No hydronephrosis. Limited or Localized CT 06/23/17 23:34 IMPRESSION: 1. Redemonstrated left rectus sheath hematomas which are decreased in size. 2. Diverticulosis without evidence diverticulitis. 3. 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 Follow-up imaging in 12 months recommended for continued surveillance. This exam was performed according to our departmental dose-optimization program, which includes automated exposure control, adjustment of the mA and/or kV according to patient size and/or use of iterative reconstruction technique. Assessment & Plan - Diagnosis (1) Depression Qualifiers: Psychotic features: without psychotic features Is this a current diagnosis for this admission?: Yes Plan: Note that the patient on current medication his depression is very well controlled. (2) HTN (hypertension) Qualifiers: Hypertension type: essential hypertension Qualified Code(s): I10 - Essential (primary) hypertension Is this a current diagnosis for this admission?: Yes Plan: Note that the patient's blood pressure is well controlled. (3) Pulmonary hypertension Is this a current diagnosis for this admission?: Yes Plan: The patient's Cardizem CD should help the patient's pulmonary hypertension. The patient will be recommended to have an outpatient sleep study to see if he has obstructive sleep apnea. Once the patient's COPD goes back to baseline, then as an outpatient will get a full PFTs with DLCO. (4) Asthma Qualifiers: Asthma severity: unspecified severity Is this a current diagnosis for this admission?: Yes Plan: Note that the patient's wheezing is improved but still has some amount of wheezing which is minimal. Would anticipate that this should resolve in the next 24-48 hours with the current therapy. (5) Chronic obstructive lung disease Qualifiers: COPD type: chronic bronchitis Chronic bronchitis type: unspecified Qualified Code(s): J42 - Unspecified chronic bronchitis Is this a current diagnosis for this admission?: Yes Plan: Continue current nebulizer treatments and steroids and antibiotics. (6) History of deep vein thrombosis Is this a current diagnosis for this admission?: Yes Plan: There is been no recurrence of DVT., And the patient is on chronic anticoagulation therapy (7) Cough Is this a current diagnosis for this admission?: Yes (8) Atrial fibrillation with rapid ventricular response Is this a current diagnosis for this admission?: Yes Plan: At present the heart rate is controlled. Continue Eliquis. Continue Cardizem CD at 240 mg p.o. every 12 hours and metoprolol 25 mg p.o. every 12 hours. Continue his other current medication. Will follow the patient up in the office. (9) Acute exacerbation of chronic obstructive airways disease Is this a current diagnosis for this admission?: Yes Plan: Continue respiratory therapy with nebulizers, steroids and antibiotics. (10) Hematoma of abdominal wall Qualifiers: Encounter type: subsequent encounter Qualified Code(s): S30.1XXD - Contusion of abdominal wall, subsequent encounter Is this a current diagnosis for this admission?: Yes Plan: This seems to have resolved. This hematoma is due to the patient being on anticoagulation and having significant cough. Note hematoma seems to be resolving, and the patient's cough is much improved, and much less. (11) Peripheral Vascular disease with stents Is this a current diagnosis for this admission?: Yes Plan: The patient has had a past history of stents in his lower extremity arteries. He has no claudication, and hence asymptomatic. We will continue to observe the patient - Notes Notes: Note 30 minutes spent on this patient with more than 50% of time spent in direct patient care his medications have been reviewed and discussed the medication that the patient should be on as an outpatient with identification. Also discussed the management plan with attending physician. Will get an outpatient Lexiscan Cardiolite stress study later on. We will follow the patient in the office since the patient is a patient of mine. Note medical decision making is of moderate complexity. The bleeding complications and contraindications for Eliquis has been discussed with the patient patient call me if he has any dark stools or blood in the stools or with any other new complaints. Will sign off the case and follow the patient in the office.
--- NOTE | 2017-06-30 18:50 | PDOC CONSULTATION ---
Consultation Consult Date: 06/21/17 Attending physician:: MARCIAL CUBA Consult reason:: dyspnea History of Present Illness Admission Date/PCP: 06/18/17 13:02 MARCIAL CUBA MD History of Present Illness: FABIENNE HURLEY is a 81 year old male c/o left abdominal pains x 2weeks. He is having bouts of coughing for past [address] scan of abdomen which showed an intramuscular 10x9x8 cm hematomaleft rectus muscle contained. Pt on Eliquis which was just stopped after the CT scan today. This history was reviewed and confirmed. When patient seen he was noted to be confused. He is noted to be in atrial fibrillation on Cardizem drip. Heart rate is well controlled. Patient was noted to have significant wheezing and mild respiratory distress. Past Medical History Cardiac Medical History: Reports: Hypertension - since 2004?, Peripheral Vascular Disease Denies: Atrial Fibrillation, Congestive Heart Failure, Coronary Artery Disease, Myocardial Infarction, Hyperlipidema, Pulmonary Embolism, Heart Murmur Pulmonary Medical History: Reports: Chronic Obstructive Pulmonary Disease (COPD) , Pneumonia - 2010 Denies: Asthma, Bronchitis, Respiratory Failure, Sleep Apnea, Tuberculosis EENT Medical History: Denies: Ears, Nose Neurological Medical History: Denies: Multiple Sclerosis, Seizures Endocrine Medical History: Denies: Gestational Diabetes, Hyperthyroidism, Hypothyroidism, Obesity Renal/ Medical History: Denies: Nephrolithiasis Malignancy Medical History: Denies: Lung Cancer GI Medical History: Denies: Crohn's Disease, Ulcerative Colitis Musculoskeltal Medical History: Reports: Arthritis - arms,rt ankle,hands Denies: Fibromyalgia Skin Medical History: Reports: Psoriasis Psychiatric Medical History: Reports: Tobacco Dependency Traumatic Medical History: Denies: Stab Wound, Traumatic Brain Injury Hematology: Denies: Anemia, Sickle Cell Disease Infectious Medical History: Denies: Hepatitis B, Hepatitis C Past Surgical History Past Surgical History: Denies: Ileostomy, Pacemaker Social History Information Source: Patient, [facility] Records Lives with: Alone Smoking Status: Never Smoker Passive smoke exposure as: Both Frequency of Alcohol Use: None Hx Recreational Drug Use: No Drugs: None Hx Prescription Drug Abuse: No Do you have pets?: No Have you been exposed to any sick contacts recently?: No Have you had any recent respiratory illnesses?: No Have you travelled outside of [place] in the past 12 months?: No Family History Family History: COPD, DM, Hypertension Parental Family History Reviewed: Yes Children Family History Reviewed: Yes Sibling(s) Family History Reviewed.: Yes Medication/Allergy Home Medications: Apixaban [Eliquis 5 mg Tablet] 5 mg PO BID #60 tablet 06/30/17 Diltiazem HCl [Cardizem Cd 240 mg Capsule.cr] 240 mg PO Q12 #60 capsule.cr 06/30 Metoprolol Succinate [Toprol Xl 25 mg Tab.sr] 25 mg PO DAILY #90 tab.sr.24h Prednisone [Deltasone 20 mg Tablet] 20 mg PO DAILY #10 tablet 06/30/17 Tramadol HCl [Ultram 50 mg Tablet] 50 mg PO Q6HP PRN #60 tablet 06/30/17 Valsartan [Diovan 160 mg Tablet] 160 mg PO DAILY #30 tablet 06/30/17 Allergies/Adverse Reactions: No Known Allergies Allergy (Verified 07/13/16 09:09) Review of Systems Constitutional: PRESENT: fatigue, weakness. ABSENT: anorexia, chills, fever(s) , headache(s), night sweats Eyes: ABSENT: visual disturbances Ears: ABSENT: hearing changes Nose, Mouth, and Throat: ABSENT: mouth pain, sore throat Cardiovascular: PRESENT: dyspnea on exertion, edema. ABSENT: palpitations Respiratory: PRESENT: dyspnea. ABSENT: hemoptysis Gastrointestinal: PRESENT: abdominal pain. ABSENT: coffee ground emesis, dysphagia, hematemesis, hematochezia Genitourinary: ABSENT: difficulty urinating, dysuria, hematuria Musculoskeletal: ABSENT: deformity, joint swelling Integumentary: ABSENT: pruritus, rash Neurological: ABSENT: abnormal gait, abnormal movements, abnormal speech, confusion, convulsions, focal weakness, frequent falls, memory loss Psychiatric: ABSENT: hallucinations, homidical ideation, suicidal ideation Endocrine: ABSENT: cold intolerance, heat intolerance, menstrual abnormalities, polydipsia, polyuria Hematologic/Lymphatic: ABSENT: easy bruising Physical Exam Vital Signs: Temp Pulse Resp BP Pulse Ox 97.6 F 89 24 H 114/84 97 06/21/17 07:34 06/21/17 09:18 06/21/17 09:18 06/21/17 07:34 06/21/17 09:18 Intake & Output 06/20/17 06/21/1718 06:59 06:59 06:59 Intake Total 300 2666 Output Total 200 1050 Balance 100 1616 Weight 96.7 kg 97.6 kg General appearance: PRESENT: no acute distress, cooperative, disheveled, well- developed. ABSENT: mild distress, morbidly obese, obese, severe distress, thin Head exam: PRESENT: atraumatic, normocephalic Eye exam: PRESENT: conjunctiva pale, EOMI. ABSENT: conjunctival injection, conjunctiva pink, nystagmus, periorbital swelling, scleral icterus Mouth exam: PRESENT: moist, neck supple, tongue midline. ABSENT: dry mucosa, laceration Teeth exam: PRESENT: poor dentation Neck exam: ABSENT: carotid bruit, JVD, lymphadenopathy, thyromegaly, tracheal deviation, tracheostomy Respiratory exam: PRESENT: decreased breath sounds, prolonged expiratory phas, rales, rhonchi, symmetrical, unlabored, wheezes. ABSENT: accessory muscle use, chest wall tenderness, clear to auscultation poonam, crackles, retraction, stridor , tachypnea Cardiovascular exam: PRESENT: RRR, +S1, +S2 Pulses: PRESENT: normal radial pulses GI/Abdominal exam: PRESENT: diminished bowel sounds, soft, tenderness Extremities exam: ABSENT: clubbing, joint swelling Musculoskeletal exam: PRESENT: ambulatory. ABSENT: deformity, dislocation Neurological exam: PRESENT: alert, awake Psychiatric exam: PRESENT: normal mood Skin exam: PRESENT: dry, warm Results Laboratory Results: 06/21/17 04:27 06/21/17 04:27 06/20/17 06/20/17 06/21/17 17:24 17:24 03:06 WBC RBC Hgb Hct MCV MCH MCHC RDW Plt Count Seg Neutrophils % Lymphocytes % Monocytes % Eosinophils % Basophils % Absolute Neutrophils Absolute Lymphocytes Absolute Monocytes Absolute Eosinophils Absolute Basophils Sodium 125.2 L Potassium 5.5 H Chloride 90 L Carbon Dioxide 22 Anion Gap 13 BUN 41 H Creatinine 1.97 H Est GFR ( Amer) 40 L Est GFR (Non-Af Amer) 33 L Glucose 168 H Serum Osmolality 277 Calcium 9.1 Total Bilirubin 0.4 AST 100 H ALT 37 Alkaline Phosphatase 56 Total Protein 7.1 Albumin 4.2 Urine Osmolality 239 L 06/21/17 06/21/17 04:27 04:27 WBC 10.5 RBC 3.14 L Hgb 10.2 L Hct 30.3 L MCV 97 MCH 32.6 MCHC 33.7 RDW 14.1 H Plt Count 150 Seg Neutrophils % 89.4 H Lymphocytes % 5.1 L Monocytes % 5.4 Eosinophils % 0.0 Basophils % 0.1 Absolute Neutrophils 9.4 H Absolute Lymphocytes 0.5 Absolute Monocytes 0.6 Absolute Eosinophils 0.0 Absolute Basophils 0.0 Sodium 124.3 L Potassium 5.9 H Chloride 89 L Carbon Dioxide 21 L Anion Gap 14 BUN 46 H Creatinine 1.90 H Est GFR ( Amer) 41 L Est GFR (Non-Af Amer) 34 L Glucose 134 H Serum Osmolality Calcium 9.0 Total Bilirubin AST ALT Alkaline Phosphatase Total Protein Albumin Urine Osmolality 06/18/17 19:00 Sputum Gram Stain - Final 06/18/17 19:00 Sputum Sputum Culture - Final Enterobacter Aerogenes Reduced Normal Che 06/18/17 17:45 Clean Catch Midstream Urine Culture - Final NO GROWTH 2 DAYS 06/18/17 06/18/17 06/18/17 13:50 13:50 19:15 Creatine Kinase 392 H 466 H CK-MB (CK-2) 1.32 Troponin I < 0.012 NT-Pro-B Natriuret Pep 06/18/17 06/19/17 06/19/17 19:15 01:07 01:07 Creatine Kinase 661 H CK-MB (CK-2) 1.82 2.92 Troponin I < 0.012 < 0.012 NT-Pro-B Natriuret Pep 06/19/17 05:55 Creatine Kinase CK-MB (CK-2) Troponin I NT-Pro-B Natriuret Pep 1510 H Impressions: Chest CT 06/18/17 00:00 IMPRESSION: NO ACUTE INTRATHORACIC PROCESS. NO SIGNIFICANT CHANGE FROM PRIOR STUDY. Abdomen/Pelvis CT 06/19/17 00:00 IMPRESSION: Hematomas in the abdominal wall on the left. Renal Ultrasound 06/20/17 00:00 IMPRESSION: No hydronephrosis. Assessment & Plan - Diagnosis (1) Acute exacerbation of chronic obstructive airways disease Is this a current diagnosis for this admission?: Yes Plan: Discontinued Medications Generic Name Dose Route Start Last Admin Trade Name Freq PRN Reason Stop Dose Admin Levalbuterol HCl 1.25 mg 06/18/17 16:00 06/30/17 12:42 Xopenex Neb 1.25 Mg/3 Ml Ampul NEB 07/18/17 15:59 Not Given RTQ4 CRISTAL Budesonide 0.5 mg 06/22/17 20:00 06/30/17 08:39 Pulmicort Neb 0.5 Mg/2 Ml Ampul NEB 07/22/17 19:59 0.5 mg RTQ12 CRISTAL Prednisone 20 mg 06/29/17 10:00 06/30/17 10:18 Deltasone 20 Mg Tablet PO 07/29/17 09:59 20 mg DAILY [facility] Guaifenesin 200 mg 06/18/17 13:36 06/30/17 06:48 Robitussin Syrup 200 Mg/10 Ml Ud Cup PO 07/18/17 13:35 200 mg Q4HP PRN Influenza Virus Vaccine Quadrival 0.5 ml 06/18/17 16:37 06/30/17 13:23 Fluzone Adlt Quad [id number] Vac 0.5 Ml Syr IM 07/18/17 16:36 0.5 ml .DISCHARGE PRN THIS MED IS NOT "PRN" (2) Atrial fibrillation with RVR Is this a current diagnosis for this admission?: Yes Plan: well controlled (3) Cough Is this a current diagnosis for this admission?: Yes Plan: stable add tessalon as necessary (4) Pulmonary hypertension Is this a current diagnosis for this admission?: Yes
--- NOTE | 2017-06-30 18:57 | PDOC PROGRESS REPORT ---
Subjective Progress Note for:: 06/22/17 Subjective:: still coughing but it's better Reason For Visit: ATRIAL FRIBRILLATION WITH RAPID VENTRICULAR RESPON Physical Exam Vital Signs: Temp Pulse Resp BP Pulse Ox 97.9 F 105 H 18 122/87 H 97 06/27/17 11:35 06/27/17 12:11 06/27/17 12:11 06/27/17 11:35 06/27/17 12:11 Intake & Output 06/26/17 06/27/17 06/28/17 06:59 06:59 06:59 Intake Total 5493 5738 Output Total 2600 3460 Balance 2893 2278 Weight 98.2 kg General appearance: PRESENT: no acute distress, cooperative, disheveled, thin, well-developed. ABSENT: mild distress, morbidly obese, obese, severe distress Head exam: PRESENT: atraumatic, normocephalic Eye exam: PRESENT: conjunctiva pale, EOMI. ABSENT: conjunctival injection, conjunctiva pink, nystagmus, periorbital swelling, scleral icterus Mouth exam: PRESENT: moist, neck supple, tongue midline. ABSENT: dry mucosa, laceration Teeth exam: PRESENT: poor dentation Neck exam: ABSENT: carotid bruit, JVD, lymphadenopathy, thyromegaly, tracheal deviation, tracheostomy Respiratory exam: PRESENT: decreased breath sounds, prolonged expiratory phas, rhonchi, stridor, symmetrical, unlabored, wheezes. ABSENT: accessory muscle use , chest wall tenderness, clear to auscultation poonam, crackles, rales, retraction , tachypnea Cardiovascular exam: PRESENT: RRR, +S1, +S2 Pulses: PRESENT: normal radial pulses GI/Abdominal exam: PRESENT: diminished bowel sounds, soft Extremities exam: PRESENT: full ROM. ABSENT: clubbing, joint swelling Musculoskeletal exam: PRESENT: ambulatory, full ROM. ABSENT: deformity, dislocation Neurological exam: PRESENT: alert, awake, other - hard of hearing Psychiatric exam: PRESENT: normal mood Skin exam: PRESENT: dry, warm Results Laboratory Results: 06/24/17 09:43 06/24/17 09:43 06/18/17 06/18/17 06/18/17 13:50 13:50 19:15 Creatine Kinase 392 H 466 H CK-MB (CK-2) 1.32 Troponin I < 0.012 NT-Pro-B Natriuret Pep 06/18/17 06/19/17 06/19/17 19:15 01:07 01:07 Creatine Kinase 661 H CK-MB (CK-2) 1.82 2.92 Troponin I < 0.012 < 0.012 NT-Pro-B Natriuret Pep 06/19/17 05:55 Creatine Kinase CK-MB (CK-2) Troponin I NT-Pro-B Natriuret Pep 1510 H Impressions: Chest CT 06/18/17 00:00 IMPRESSION: NO ACUTE INTRATHORACIC PROCESS. NO SIGNIFICANT CHANGE FROM PRIOR STUDY. Abdomen/Pelvis CT 06/19/17 00:00 IMPRESSION: Hematomas in the abdominal wall on the left. Renal Ultrasound 06/20/17 00:00 IMPRESSION: No hydronephrosis. Limited or Localized CT 06/23/17 23:34 IMPRESSION: 1. Redemonstrated left rectus sheath hematomas which are decreased in size. 2. Diverticulosis without evidence diverticulitis. 3. 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 Follow-up imaging in 12 months recommended for continued surveillance. This exam was performed according to our departmental dose-optimization program, which includes automated exposure control, adjustment of the mA and/or kV according to patient size and/or use of iterative reconstruction technique. Assessment & Plan - Diagnosis (1) Acute exacerbation of chronic obstructive airways disease Is this a current diagnosis for this admission?: Yes Plan: asthma long standing evolved into emphysema (2) Atrial fibrillation with rapid ventricular response Is this a current diagnosis for this admission?: Yes Plan: controlled (3) Chronic obstructive lung disease Qualifiers: COPD type: chronic bronchitis Chronic bronchitis type: unspecified Qualified Code(s): J42 - Unspecified chronic bronchitis Is this a current diagnosis for this admission?: Yes Plan: stable (4) Cough Is this a current diagnosis for this admission?: Yes Plan: improved not resolved (5) HTN (hypertension) Qualifiers: Hypertension type: essential hypertension Qualified Code(s): I10 - Essential (primary) hypertension Is this a current diagnosis for this admission?: Yes Plan: stable
--- NOTE | 2017-06-30 19:00 | PDOC PROGRESS REPORT ---
Subjective Progress Note for:: 06/23/17 Subjective:: still coughing Reason For Visit: ATRIAL FRIBRILLATION WITH RAPID VENTRICULAR RESPON Physical Exam Vital Signs: Temp Pulse Resp BP Pulse Ox 97.9 F 105 H 18 122/87 H 97 06/27/17 11:35 06/27/17 12:11 06/27/17 12:11 06/27/17 11:35 06/27/17 12:11 Intake & Output 06/26/17 06/27/17 06/28/17 06:59 06:59 06:59 Intake Total 5493 5738 Output Total 2600 3460 Balance 2893 2278 Weight 98.2 kg General appearance: PRESENT: no acute distress, cooperative, disheveled. ABSENT : mild distress, morbidly obese, obese, severe distress Head exam: PRESENT: atraumatic, normocephalic Eye exam: PRESENT: conjunctiva pale, EOMI. ABSENT: conjunctival injection, conjunctiva pink, nystagmus, periorbital swelling, scleral icterus Mouth exam: PRESENT: moist, neck supple, tongue midline. ABSENT: dry mucosa, laceration Teeth exam: PRESENT: poor dentation Neck exam: ABSENT: carotid bruit, JVD, lymphadenopathy, thyromegaly, tracheal deviation, tracheostomy Respiratory exam: PRESENT: decreased breath sounds, prolonged expiratory phas, rhonchi, symmetrical, unlabored. ABSENT: accessory muscle use, chest wall tenderness, clear to auscultation poonam, crackles, rales, retraction, stridor, tachypnea Cardiovascular exam: PRESENT: RRR, +S1, +S2 Pulses: PRESENT: normal radial pulses GI/Abdominal exam: PRESENT: diminished bowel sounds, soft Extremities exam: PRESENT: full ROM. ABSENT: clubbing, joint swelling Musculoskeletal exam: PRESENT: ambulatory, full ROM. ABSENT: deformity, dislocation Neurological exam: PRESENT: alert, awake, other - [place] Psychiatric exam: PRESENT: normal mood Skin exam: PRESENT: dry, warm Results Laboratory Results: 06/24/17 09:43 06/24/17 09:43 06/18/17 06/18/17 06/18/17 13:50 13:50 19:15 Creatine Kinase 392 H 466 H CK-MB (CK-2) 1.32 Troponin I < 0.012 NT-Pro-B Natriuret Pep 06/18/17 06/19/17 06/19/17 19:15 01:07 01:07 Creatine Kinase 661 H CK-MB (CK-2) 1.82 2.92 Troponin I < 0.012 < 0.012 NT-Pro-B Natriuret Pep 06/19/17 05:55 Creatine Kinase CK-MB (CK-2) Troponin I NT-Pro-B Natriuret Pep 1510 H Impressions: Chest CT 06/18/17 00:00 IMPRESSION: NO ACUTE INTRATHORACIC PROCESS. NO SIGNIFICANT CHANGE FROM PRIOR STUDY. Abdomen/Pelvis CT 06/19/17 00:00 IMPRESSION: Hematomas in the abdominal wall on the left. Renal Ultrasound 06/20/17 00:00 IMPRESSION: No hydronephrosis. Limited or Localized CT 06/23/17 23:34 IMPRESSION: 1. Redemonstrated left rectus sheath hematomas which are decreased in size. 2. Diverticulosis without evidence diverticulitis. 3. 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 Follow-up imaging in 12 months recommended for continued surveillance. This exam was performed according to our departmental dose-optimization program, which includes automated exposure control, adjustment of the mA and/or kV according to patient size and/or use of iterative reconstruction technique. Assessment & Plan - Diagnosis (1) Atrial fibrillation with RVR Is this a current diagnosis for this admission?: Yes Plan: well controlled (2) Chronic obstructive lung disease Qualifiers: COPD type: chronic bronchitis Chronic bronchitis type: unspecified Qualified Code(s): J42 - Unspecified chronic bronchitis Is this a current diagnosis for this admission?: Yes Plan: stable (3) Cough Is this a current diagnosis for this admission?: Yes Plan: improved not resolved (4) HTN (hypertension) Qualifiers: Hypertension type: essential hypertension Qualified Code(s): I10 - Essential (primary) hypertension Is this a current diagnosis for this admission?: Yes Plan: stable
--- NOTE | 2017-06-30 19:03 | PDOC PROGRESS REPORT ---
Subjective Progress Note for:: 06/27/17 Subjective:: less coughing Reason For Visit: ATRIAL FRIBRILLATION WITH RAPID VENTRICULAR RESPON Physical Exam Vital Signs: Temp Pulse Resp BP Pulse Ox 97.9 F 105 H 18 122/87 H 97 06/27/17 11:35 06/27/17 12:11 06/27/17 12:11 06/27/17 11:35 06/27/17 12:11 Intake & Output 06/26/17 06/27/17 06/28/17 06:59 06:59 06:59 Intake Total 5493 5738 Output Total 2600 3460 Balance 2893 2278 Weight 98.2 kg General appearance: PRESENT: no acute distress, cooperative, disheveled, hard of hearing, well-developed. ABSENT: mild distress, morbidly obese, obese, severe distress Head exam: PRESENT: atraumatic, normocephalic Eye exam: PRESENT: conjunctiva pale, EOMI. ABSENT: conjunctival injection, conjunctiva pink, nystagmus, periorbital swelling, scleral icterus Mouth exam: PRESENT: moist, neck supple, tongue midline. ABSENT: dry mucosa, laceration Teeth exam: PRESENT: poor dentation Neck exam: ABSENT: carotid bruit, JVD, lymphadenopathy, thyromegaly, tracheal deviation, tracheostomy Respiratory exam: PRESENT: decreased breath sounds, prolonged expiratory phas, rhonchi, symmetrical, unlabored. ABSENT: accessory muscle use, chest wall tenderness, clear to auscultation poonam, crackles, rales, retraction, stridor, tachypnea Cardiovascular exam: PRESENT: RRR, +S1, +S2 Pulses: PRESENT: normal femoral pulses GI/Abdominal exam: PRESENT: diminished bowel sounds, soft Extremities exam: PRESENT: full ROM. ABSENT: clubbing, joint swelling Musculoskeletal exam: PRESENT: ambulatory, full ROM. ABSENT: deformity, dislocation Neurological exam: PRESENT: alert, altered Skin exam: PRESENT: dry, warm Results Laboratory Results: 06/24/17 09:43 06/24/17 09:43 06/18/17 06/18/17 06/18/17 13:50 13:50 19:15 Creatine Kinase 392 H 466 H CK-MB (CK-2) 1.32 Troponin I < 0.012 NT-Pro-B Natriuret Pep 06/18/17 06/19/17 06/19/17 19:15 01:07 01:07 Creatine Kinase 661 H CK-MB (CK-2) 1.82 2.92 Troponin I < 0.012 < 0.012 NT-Pro-B Natriuret Pep 06/19/17 05:55 Creatine Kinase CK-MB (CK-2) Troponin I NT-Pro-B Natriuret Pep 1510 H Impressions: Chest CT 06/18/17 00:00 IMPRESSION: NO ACUTE INTRATHORACIC PROCESS. NO SIGNIFICANT CHANGE FROM PRIOR STUDY. Abdomen/Pelvis CT 06/19/17 00:00 IMPRESSION: Hematomas in the abdominal wall on the left. Renal Ultrasound 06/20/17 00:00 IMPRESSION: No hydronephrosis. Limited or Localized CT 06/23/17 23:34 IMPRESSION: 1. Redemonstrated left rectus sheath hematomas which are decreased in size. 2. Diverticulosis without evidence diverticulitis. 3. 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 Follow-up imaging in 12 months recommended for continued surveillance. This exam was performed according to our departmental dose-optimization program, which includes automated exposure control, adjustment of the mA and/or kV according to patient size and/or use of iterative reconstruction technique. Assessment & Plan - Diagnosis (1) Atrial fibrillation with RVR Is this a current diagnosis for this admission?: Yes Plan: well controlled (2) Chronic obstructive lung disease Qualifiers: COPD type: chronic bronchitis Chronic bronchitis type: unspecified Qualified Code(s): J42 - Unspecified chronic bronchitis Is this a current diagnosis for this admission?: Yes Plan: stable (3) Cough Is this a current diagnosis for this admission?: Yes Plan: improved not resolved (4) HTN (hypertension) Qualifiers: Hypertension type: essential hypertension Qualified Code(s): I10 - Essential (primary) hypertension Is this a current diagnosis for this admission?: Yes Plan: stable
--- NOTE | 2017-06-30 19:09 | PDOC PROGRESS REPORT ---
Subjective Progress Note for:: 06/29/17 Subjective:: not coughing Reason For Visit: ATRIAL FRIBRILLATION WITH RAPID VENTRICULAR RESPON Physical Exam Vital Signs: Temp Pulse Resp BP Pulse Ox 98.4 F 70 18 122/80 98 06/30/17 13:30 06/30/17 13:30 06/30/17 13:30 06/30/17 13:30 06/30/17 13:30 Intake & Output 06/29/17 06/30/17 07/01/17 06:59 06:59 06:59 Intake Total 3193 1533 Output Total 1875 750 Balance 1318 783 Weight 97.9 kg 94.7 kg General appearance: PRESENT: no acute distress, cooperative, disheveled, hard of hearing, well-developed. ABSENT: mild distress, morbidly obese, obese, severe distress Head exam: PRESENT: atraumatic, normocephalic Eye exam: PRESENT: conjunctiva pale, EOMI. ABSENT: conjunctival injection, conjunctiva pink, nystagmus, periorbital swelling, scleral icterus Mouth exam: PRESENT: moist, neck supple, tongue midline. ABSENT: dry mucosa, laceration Teeth exam: PRESENT: poor dentation Neck exam: ABSENT: carotid bruit, JVD, lymphadenopathy, thyromegaly, tracheal deviation, tracheostomy Respiratory exam: PRESENT: decreased breath sounds, prolonged expiratory phas, rhonchi, symmetrical, unlabored. ABSENT: accessory muscle use, chest wall tenderness, clear to auscultation poonam, crackles, rales, retraction, stridor, tachypnea Cardiovascular exam: PRESENT: RRR, +S1, +S2 Pulses: PRESENT: normal radial pulses GI/Abdominal exam: PRESENT: diminished bowel sounds, soft Extremities exam: PRESENT: full ROM. ABSENT: clubbing, joint swelling Musculoskeletal exam: PRESENT: ambulatory, full ROM. ABSENT: deformity, dislocation Neurological exam: PRESENT: alert, awake Skin exam: PRESENT: dry, warm Results Laboratory Results: 06/28/17 18:18 06/29/17 17:50 06/18/17 06/18/17 06/18/17 13:50 13:50 19:15 Creatine Kinase 392 H 466 H CK-MB (CK-2) 1.32 Troponin I < 0.012 NT-Pro-B Natriuret Pep 06/18/17 06/19/17 06/19/17 19:15 01:07 01:07 Creatine Kinase 661 H CK-MB (CK-2) 1.82 2.92 Troponin I < 0.012 < 0.012 NT-Pro-B Natriuret Pep 06/19/17 05:55 Creatine Kinase CK-MB (CK-2) Troponin I NT-Pro-B Natriuret Pep 1510 H Impressions: Chest CT 06/18/17 00:00 IMPRESSION: NO ACUTE INTRATHORACIC PROCESS. NO SIGNIFICANT CHANGE FROM PRIOR STUDY. Abdomen/Pelvis CT 06/19/17 00:00 IMPRESSION: Hematomas in the abdominal wall on the left. Renal Ultrasound 06/20/17 00:00 IMPRESSION: No hydronephrosis. Limited or Localized CT 06/23/17 23:34 IMPRESSION: 1. Redemonstrated left rectus sheath hematomas which are decreased in size. 2. Diverticulosis without evidence diverticulitis. 3. 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 Follow-up imaging in 12 months recommended for continued surveillance. This exam was performed according to our departmental dose-optimization program, which includes automated exposure control, adjustment of the mA and/or kV according to patient size and/or use of iterative reconstruction technique. Assessment & Plan - Diagnosis (1) Atrial fibrillation with RVR Is this a current diagnosis for this admission?: Yes Plan: well controlled (2) Chronic obstructive lung disease Qualifiers: COPD type: chronic bronchitis Chronic bronchitis type: unspecified Qualified Code(s): J42 - Unspecified chronic bronchitis Is this a current diagnosis for this admission?: Yes Plan: stable (3) Cough Is this a current diagnosis for this admission?: Yes Plan: stable (4) HTN (hypertension) Qualifiers: Hypertension type: essential hypertension Qualified Code(s): I10 - Essential (primary) hypertension Is this a current diagnosis for this admission?: Yes Plan: stable
--- NOTE | 2017-06-30 19:11 | PDOC PROGRESS REPORT ---
Subjective Progress Note for:: 06/28/17 Subjective:: less coughing Reason For Visit: ATRIAL FRIBRILLATION WITH RAPID VENTRICULAR RESPON Physical Exam Vital Signs: Temp Pulse Resp BP Pulse Ox 98.4 F 70 18 122/80 98 06/30/17 13:30 06/30/17 13:30 06/30/17 13:30 06/30/17 13:30 06/30/17 13:30 Intake & Output 06/29/17 06/30/17 07/01/17 06:59 06:59 06:59 Intake Total 3193 1533 Output Total 1875 750 Balance 1318 783 Weight 97.9 kg 94.7 kg General appearance: PRESENT: no acute distress, cooperative, disheveled, hard of hearing, well-developed. ABSENT: mild distress, morbidly obese, obese, severe distress Head exam: PRESENT: atraumatic, normocephalic Eye exam: PRESENT: conjunctiva pale, EOMI. ABSENT: conjunctival injection, conjunctiva pink, nystagmus, periorbital swelling, scleral icterus Mouth exam: PRESENT: moist, neck supple, tongue midline. ABSENT: dry mucosa, laceration Teeth exam: PRESENT: poor dentation Neck exam: ABSENT: carotid bruit, JVD, lymphadenopathy, thyromegaly, tracheal deviation, tracheostomy Respiratory exam: PRESENT: decreased breath sounds, prolonged expiratory phas, rhonchi, symmetrical, unlabored. ABSENT: accessory muscle use, chest wall tenderness, clear to auscultation poonam, crackles, rales, retraction, stridor, tachypnea Cardiovascular exam: PRESENT: RRR, +S1, +S2 Pulses: PRESENT: normal radial pulses GI/Abdominal exam: PRESENT: diminished bowel sounds, soft Extremities exam: PRESENT: full ROM. ABSENT: clubbing, joint swelling Musculoskeletal exam: PRESENT: ambulatory, full ROM. ABSENT: deformity, dislocation Neurological exam: PRESENT: alert, awake Psychiatric exam: PRESENT: normal mood Skin exam: PRESENT: dry, warm Results Laboratory Results: 06/28/17 18:18 06/29/17 17:50 06/18/17 06/18/17 06/18/17 13:50 13:50 19:15 Creatine Kinase 392 H 466 H CK-MB (CK-2) 1.32 Troponin I < 0.012 NT-Pro-B Natriuret Pep 06/18/17 06/19/1706/19/18 19:15 01:07 01:07 Creatine Kinase 661 H CK-MB (CK-2) 1.82 2.92 Troponin I < 0.012 < 0.012 NT-Pro-B Natriuret Pep 06/19/17 05:55 Creatine Kinase CK-MB (CK-2) Troponin I NT-Pro-B Natriuret Pep 1510 H Impressions: Chest CT 06/18/17 00:00 IMPRESSION: NO ACUTE INTRATHORACIC PROCESS. NO SIGNIFICANT CHANGE FROM PRIOR STUDY. Abdomen/Pelvis CT 06/19/17 00:00 IMPRESSION: Hematomas in the abdominal wall on the left. Renal Ultrasound 06/20/17 00:00 IMPRESSION: No hydronephrosis. Limited or Localized CT 06/23/17 23:34 IMPRESSION: 1. Redemonstrated left rectus sheath hematomas which are decreased in size. 2. Diverticulosis without evidence diverticulitis. 3. 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 Follow-up imaging in 12 months recommended for continued surveillance. This exam was performed according to our departmental dose-optimization program, which includes automated exposure control, adjustment of the mA and/or kV according to patient size and/or use of iterative reconstruction technique. Assessment & Plan - Diagnosis (1) Atrial fibrillation with RVR Is this a current diagnosis for this admission?: Yes Plan: well controlled (2) Chronic obstructive lung disease Qualifiers: COPD type: chronic bronchitis Chronic bronchitis type: unspecified Qualified Code(s): J42 - Unspecified chronic bronchitis Is this a current diagnosis for this admission?: Yes Plan: stable (3) Cough Is this a current diagnosis for this admission?: Yes Plan: improved stable (4) HTN (hypertension) Qualifiers: Hypertension type: essential hypertension Qualified Code(s): I10 - Essential (primary) hypertension Is this a current diagnosis for this admission?: Yes Plan: stable
--- NOTE | 2017-06-30 20:25 | PDOC DISCHARGE SUMMARY ---
General - Admit/Disc Date/PCP Admission Date/Primary Care Provider: 06/18/17 13:02 MARCIAL CUBA MD Discharge Date: 06/30/17 - Discharge Diagnosis (1) Acute exacerbation of chronic obstructive airways disease Is this a current diagnosis for this admission?: Yes (2) Atrial fibrillation with rapid ventricular response Is this a current diagnosis for this admission?: Yes (3) Hematoma of abdominal wall Is this a current diagnosis for this admission?: Yes (4) History of deep vein thrombosis Is this a current diagnosis for this admission?: Yes (5) Acute kidney injury Is this a current diagnosis for this admission?: Yes (6) Hyponatremia Is this a current diagnosis for this admission?: Yes (7) Delirium Is this a current diagnosis for this admission?: Yes (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 Is this a current diagnosis for this admission?: Yes (9) Stridor Is this a current diagnosis for this admission?: Yes - Additional Information Resuscitation Status: Full Code Discharge Diet: Regular Discharge Activity: Activity As Tolerated Prescriptions: Tramadol HCl [Ultram 50 mg Tablet] 50 mg PO Q6HP PRN #60 tablet PRN Reason: For Pain Apixaban [Eliquis 5 mg Tablet] 5 mg PO BID #60 tablet Diltiazem HCl [Cardizem Cd 240 mg Capsule.cr] 240 mg PO Q12 #60 capsule.cr Metoprolol Succinate [Toprol Xl 25 mg Tab.sr] 25 mg PO DAILY #90 tab.sr.24h Prednisone [Deltasone 20 mg Tablet] 20 mg PO DAILY #10 tablet Valsartan [Diovan 160 mg Tablet] 160 mg PO DAILY #30 tablet Home Medications: Apixaban [Eliquis 5 mg Tablet] 5 mg PO BID #60 tablet 06/30/17 Diltiazem HCl [Cardizem Cd 240 mg Capsule.cr] 240 mg PO Q12 #60 capsule.cr 06/30 Metoprolol Succinate [Toprol Xl 25 mg Tab.sr] 25 mg PO DAILY #90 tab.sr.24h Prednisone [Deltasone 20 mg Tablet] 20 mg PO DAILY #10 tablet 06/30/17 Tramadol HCl [Ultram 50 mg Tablet] 50 mg PO Q6HP PRN #60 tablet 06/30/17 Valsartan [Diovan 160 mg Tablet] 160 mg PO DAILY #30 tablet 06/30/17 History of Present Illness History of Present Illness: FABIENNE HURLEY is a 81 year old male, He presented to the emergency room on 06/18 with chief complaint of abdominal pain, cough, shortness of breath. In the emergency room he was found to be in atrial fibrillation with rapid particular response, acute COPD exacerbation Hospital Course Hospital Course: Patient presented with acute COPD exacerbation associated with paroxysmal atrial fibrillation associated with rapid ventricular response. A CAT scan of the abdomen and pelvis was done without IV contrast, contrast was not given because of acute kidney injury, the CAT scan showed a 4.2 x 9.2 x 8 cm mass in the abdominal wall on the left thought to be due to hematoma. Hospital course was prolonged patient had very prolonged acute COPD exacerbation, initially he was treated with IV Solu-Medrol, this was transitioned to Decadron at one point because of suspicion for stridor. A 2D echo was done on this admission he showed a preserved ejection fraction of left ventricle estimated at 55% there was moderate pulmonary hypertension by echo criteria. Kidney ultrasound was done there was no hydronephrosis on kidney ultrasound. 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 He was seen by cardiology and pulmonary. The acute kidney injury improved with hydration suggesting a prerenal acute kidney injury and not due to intrinsic kidney disease. Physical Exam Vital Signs: Temp Pulse Resp BP Pulse Ox 98.4 F 70 18 122/80 98 06/30/17 13:30 06/30/17 13:30 06/30/17 13:30 06/30/17 13:30 06/30/17 13:30 Intake & Output 06/29/17 06/30/17 07/01/17 06:59 06:59 06:59 Intake Total 3193 1533 Output Total 1875 750 Balance 1318 783 Weight 97.9 kg 94.7 kg General appearance: PRESENT: no acute distress Eye exam: PRESENT: PERRLA Respiratory exam: PRESENT: clear to auscultation poonam Cardiovascular exam: PRESENT: +S1, +S2 GI/Abdominal exam: PRESENT: soft Neurological exam: PRESENT: alert Results Laboratory Results: 06/28/17 18:18 06/29/17 17:50 06/18/17 06/18/17 06/18/17 13:50 13:50 19:15 Creatine Kinase 392 H 466 H CK-MB (CK-2) 1.32 Troponin I < 0.012 NT-Pro-B Natriuret Pep 06/18/17 06/19/17 06/19/17 19:15 01:07 01:07 Creatine Kinase 661 H CK-MB (CK-2) 1.82 2.92 Troponin I < 0.012 < 0.012 NT-Pro-B Natriuret Pep 06/19/17 05:55 Creatine Kinase CK-MB (CK-2) Troponin I NT-Pro-B Natriuret Pep 1510 H Impressions: Chest CT 06/18/17 00:00 IMPRESSION: NO ACUTE INTRATHORACIC PROCESS. NO SIGNIFICANT CHANGE FROM PRIOR STUDY. Abdomen/Pelvis CT 06/19/17 00:00 IMPRESSION: Hematomas in the abdominal wall on the left. Renal Ultrasound 06/20/17 00:00 IMPRESSION: No hydronephrosis. Limited or Localized CT 06/23/17 23:34 IMPRESSION: 1. Redemonstrated left rectus sheath hematomas which are decreased in size. 2. Diverticulosis without evidence diverticulitis. 3. 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 Follow-up imaging in 12 months recommended for continued surveillance. This exam was performed according to our departmental dose-optimization program, which includes automated exposure control, adjustment of the mA and/or kV according to patient size and/or use of iterative reconstruction technique.
== END 2017-06-30 13:59 | disposition home health service (06) | DRG 191 ==
LOC: ER 11:12 → EH 13:02 → 3S 16:14
PROVIDERS: ADMIT Internal Medicine; ATTEND Internal Medicine
PROC: 3E0F73Z Introduction of Anti-inflammatory into Respiratory Tract, Via Natural or Artificial Opening (ICD-10-PCS; 2017-06-18)
PROC: 5A09357 Assistance with Respiratory Ventilation, Less than 24 Consecutive Hours, Continuous Positive Airway Pressure (ICD-10-PCS; 2017-06-20)
PROC: 3E0234Z Introduction of Serum, Toxoid and Vaccine into Muscle, Percutaneous Approach (ICD-10-PCS; principal; 2017-06-30)
DX: J44.1 Chronic obstructive pulmonary disease with (acute) exacerbation (principal); E87.1 Hypo-osmolality and hyponatremia; D68.32 Hemorrhagic disorder due to extrinsic circulating anticoagulants; N17.9 Acute kidney failure, unspecified; I48.0 Paroxysmal atrial fibrillation; T45.515A Adverse effect of anticoagulants, initial encounter; M79.81 Nontraumatic hematoma of soft tissue; I10 Essential (primary) hypertension; F32.9 Major depressive disorder, single episode, unspecified; I73.9 Peripheral vascular disease, unspecified; M19.90 Unspecified osteoarthritis, unspecified site; Z79.02 Long term (current) use of antithrombotics/antiplatelets; E78.5 Hyperlipidemia, unspecified; Z86.718 Personal history of other venous thrombosis and embolism; R41.82 Altered mental status, unspecified; T36.3X5A Adverse effect of macrolides, initial encounter; I87.009 Postthrombotic syndrome without complications of unspecified extremity; E87.5 Hyperkalemia; R06.1 Stridor; I87.8 Other specified disorders of veins; I87.2 Venous insufficiency (chronic) (peripheral); R05 Cough; I27.20 Pulmonary hypertension, unspecified; Z78.1 Physical restraint status; E66.01 Morbid (severe) obesity due to excess calories; Z91.19 Patient's noncompliance with other medical treatment and regimen; Z68.30 Body mass index [BMI] 30.0-30.9, adult; Z79.899 Other long term (current) drug therapy; Z95.820 Peripheral vascular angioplasty status with implants and grafts; Z23 Encounter for immunization
CPT/HCPCS: 36415; 36600; 71045; 71250; 74176; 76380; 76775; 80048; 80053; 81001; 82550; 82553; 82803; 82962; 83605; 83735; 83880; 83930; 83935; 84132; 84300; 84443; 84484; 85025; 85027; 85610; 87040; 87070; 87077; 87086; 87186; 87205; 87804; 90686; 93005; 93010; 93306; 93970; 94640; 94660; 96365; 96368; 96376; 99291; G8978-GP; G8979-GP; J0456; J0696; J1100; J1160; J1630; J1815; J1940; J2920; J2930; J3490; J7030; J7060; J7512; S0028